=== PATIENT | male | born 1955 ===

== ENCOUNTER 2017-05-18 15:39 | Inpatient (IN) | payer MEDICARE, OTHER ==
[2017-05-18] MEDS ORDERED: Sodium Chloride 0.9% 1,000 ML IV STA (15:52)
--- NOTE | 2017-05-18 15:58 | ED PDOC ---
HPI: Chest Pain Time Seen by Provider: 05/18/17 15:43 Chief Complaint (Nursing): Chest Pain Chief Complaint (Provider): chest pain History Per: Patient History/Exam Limitations: no limitations Onset/Duration Of Symptoms: Days (2), Gradual, Persistent Quality: Sharp Associated Symptoms: Dyspnea. denies: Nausea, Diaphoresis, Syncope Exacerbating Factors: Deep Breathing Additional Complaint(s): Cough since Sunday and taking OTC cough medication, unsure name. Cough seems to be improving but developed shortness of breath and RIGHT sided chest pain. No fever. No swelling. PMD: Dr Patrick Bills Past Medical History Reviewed: Historical Data, Nursing Documentation, Vital Signs Vital Signs: Last Vital Signs Temp 97.5 F L 05/19/17 15:37 Pulse 87 05/19/17 15:37 Resp 20 05/19/17 15:37 BP 110/73 05/19/17 15:37 Pulse Ox 100 05/19/17 15:37 - Medical History PMH: Arthritis, Asthma, Back Problems, Diabetes, HTN, Hypercholesterolemia - Surgical History Surgical History: Appendectomy Other surgeries: Neck surgery, RIGHT hand surgery, Knee surgery - Family History Family History: States: Unknown Family Hx - Social History Current smoker - smoking cessation education provided: Yes Alcohol: Social - Immunization History Hx Tetanus Toxoid Vaccination: No Hx Influenza Vaccination: Yes Hx Pneumococcal Vaccination: No - Home Medications Home Medications: Ambulatory Orders Medication Instructions Recorded GlipiZIDE [Glucotrol] 5 mg PO DAILY 09/21/15 Amitriptyline [Elavil] 25 mg PO HS 05/18/17 Diclofenac Sodium [Voltaren] 1 appl TOP HS 05/18/17 Enalapril Maleate [Vasotec] 20 mg PO DAILY 05/18/17 Folic Acid [Folic Acid] 1 mg PO DAILY 05/18/17 Ibuprofen [Motrin Tab] 600 mg PO Q6H PRN 05/18/17 Multivitamin [Multi-Vitamin Daily] 1 tab PO DAILY 05/18/17 Rosuvastatin Calcium [Crestor] 10 mg PO DAILY 05/18/17 - Allergies Allergies/Adverse Reactions: Allergies Allergy/AdvReac Type Severity Reaction Status Date / Time No Known Allergies Allergy Verified 11/20/16 14:19 LUCAS Risk Score for UA/NSTEMI - LUCAS Risk Score Age > 64: NO 3 or more CAD Risk Factors: YES LUCAS Score: 1 Risk %: 5% Review of Systems ROS Statement: Except As Marked, All Systems Reviewed And Found Negative (and as per HPI) Constitutional: Negative for: Fever, Chills Cardiovascular: Positive for: Chest Pain, Light Headedness. Negative for: Edema Respiratory: Positive for: Cough, Shortness of Breath, SOB with Exertion, Pleuritic Pain, Sputum. Negative for: Hemoptysis, Wheezing Physical Exam - Reviewed Nursing Documentation Reviewed: Yes Vital Signs Reviewed: Yes - Physical Exam Appears: Positive for: Non-toxic, No Acute Distress Head Exam: Positive for: ATRAUMATIC, NORMOCEPHALIC Skin: Positive for: Warm, Dry Eye Exam: Positive for: EOMI, PERRL ENT: Negative for: Pharyngeal Erythema, Tonsillar Exudate Neck: Positive for: Painless ROM, Supple Cardiovascular/Chest: Positive for: Tachycardia, Other (tenderness mild RIGHT anterior chest wall). Negative for: Edema, Murmur Respiratory: Positive for: Normal Breath Sounds. Negative for: Rales, Stridor, Wheezing, Respiratory Distress Gastrointestinal/Abdominal: Positive for: Soft. Negative for: Tenderness, Guarding Back: Positive for: Normal Inspection. Negative for: L CVA Tenderness, R CVA Tenderness Extremity: Positive for: Other (RIGHT hand/wrist: post trauma deformity chronic) . Negative for: Pedal Edema Neurologic/Psych: Positive for: Alert. Negative for: Motor/Sensory Deficits - Laboratory Results Result Diagrams: 05/18/17 16:02 05/19/17 05:30 Interpretation Of Abn Labs: New onset renal insufficiency. Elevated WBC and anemia. Pt has elevated ddimer but unable to have CT with contrast due to renal insufficiency. - ECG ECG: Positive for: Interpreted By Me ECG Rhythm: Positive for: Normal QRS, Normal ST Segment, Sinus Tachycardia O2 Sat by Pulse Oximetry: 98 Pulse Ox Interpretation: Normal - CT Scan/US chest Other Rad Studies (CT/US): Read By Radiologist - Progress ED Course And Treament: Time: 16:05 --CXR FINDINGS: LUNGS: There is a elliptical shaped cavitary lesion in the right middle lobe which measures approximately 4.9 cm trans x 2.15 cm CC x 4 .3 cm AP with a air-fluid level. Findings may represent a abscess however the possibility of cavitary- necrotic tumor not excluded. Clinical correlation recommended. Followup CT scan of the chest recommended. PLEURA: No significant pleural effusion identified. No pneumothorax apparent. CARDIOVASCULAR: Heart size normal. OSSEOUS STRUCTURES: Re- demonstrated is posterior fixation hardware lower cervical spine. . Apparent bilateral laminectomy defects lower cervical region. Clinic correlation recommended. VISUALIZED UPPER ABDOMEN: Normal. OTHER FINDINGS: None. IMPRESSION: Cavitary lesion with air-fluid level right middle lobe. This may represent abscess however cavitary - necrotic tumor not excluded These findings discussed with Dr. Pride at approximately 5:25 p.m. with written down and read back verification. Time: 1950 --CT Chest FINDINGS: Lungs and pleural spaces: Trachea and main bronchi are patent. There is a cavitary mass in the right middle lobe which measures approximately 5 x 4.6 x 4.5 cm in maximal dimension. Inner wall is thick and somewhat irregular. There is a peripheral/adjacent component which is more solid with only a small amount of cavitation. This measures approximately 2.5 x 3 x 2.1 cm. Right middle lobe bronchi extend to the mass. There is middle lobe peribronchial thickening adjacent to the mass. There is airspace disease in the middle lobe adjacent to the mass. Mass abuts the minor fissure and causes bulging. No focal abnormalities are seen in the right upper or lower lobes. There are no focal lesions in the left lung. There are no effusions. Heart and vasculature: Heart size is normal. There are coronary artery calcifications.Aorta and main pulmonary artery are normal in caliber.There are vascular calcifications. Mediastinum: There is mediastinal adenopathy. There are partially calcified mediastinal nodes. There are partially calcified subcarinal nodes and left hilar nodes.Roxana are not optimally evaluated without contrast material.Esophagus is unremarkable. Thyroid: Thyroid is only partially imaged. Bones/joints: There are degenerative changes in the osseus structures. Soft tissues: unremarkable Upper abdomen: Spleen is incompletely imaged but appears enlarged. IMPRESSION: --Cavitary mass in the right middle lobe with adjacent interstitial and air space disease, abscess versus neoplasm; calcified and noncalcified mediastinal and hilar adenopathy; possible splenomegaly --Biopsy advised --Additional findings as described above. Antibiotics started [facility] in isolation and telemetry [facility] pt findings and plan of care. - Critical Care Total Time (In Min): 30 Documented Critical Care: Time excludes all time spent performint seperately billable procedures Disposition - Clinical Impression Clinical Impression: Cavitary lesion of lung, Acute renal insufficiency Counseled Patient/Family Regarding: Studies Performed, Diagnosis - Disposition Disposition Time: 17:00 Condition: GUARDED - Pt Status Changed To: Hospital Disposition Of: Inpatient - Admit Certification Admit to Inpatient:: After my assessment, the patient will require hospitalization for at least two midnights. This is because of the severity of symptoms shown, intensity of services needed, and/or the medical risk in this patient being treated as an outpatient. - POA Present On Arrival: Poor Glycemic Control
[2017-05-18] MEDS ORDERED: Lidocaine 5% Patch TD STA (16:21)
[2017-05-18] MEDS ORDERED: Lidocaine 5% Patch TD ONE (16:31)
[2017-05-18 16:38] LABS: BASO % 0.2 % (0.0-2.0); EOS % 0.1 % (0.0-4.0); HEMATOCRIT 32.3 % (35.0-51.0); LYMPH # 0.4 K/uL (1.0-4.3); LYMPH % 3.2 % (20.0-40.0); MEAN CORPUSCULAR HEMOGLOBIN 31.9 pg (27.0-31.0); MEAN CORPUSCULAR HGB CONC 32.9 g/dL (33.0-37.0); MEAN PLATELET VOLUME 8.7 fl (7.2-11.7); MONO % 8.5 % (0.0-10.0); PLATELET COUNT 221 K/uL (130-400); RED CELL DISTRIBUTION WIDTH 13.1 % (11.5-14.5); WHITE BLOOD COUNT 11.3 K/uL (4.8-10.8)
[2017-05-18 16:53] LABS: ALB/GLOB RATIO 1.1 (1.0-2.1); ALKALINE PHOSPHATASE 154 U/L (38-126); ALT/SGPT 30 U/L (21-72); AST/SGOT 36 U/L (17-59); BILIRUBIN,TOTAL 1.4 mg/dl (0.2-1.3); BLOOD UREA NITROGEN 58 mg/dl (9-20); CALCIUM 9.6 mg/dL (8.4-10.2); CARBON DIOXIDE 20 mmol/L (22-30); CHLORIDE 98 mmol/L (98-107); GFR AFRICAN-AMERICAN 29; GLUCOSE,RANDOM 287 mg/dL (75-110); SODIUM 135 mmol/l (132-148); TOTAL PROTEIN 8.4 G/DL (6.3-8.2)
[2017-05-18 17:03] LABS: VENOUS BLOOD GAS BASE EXCESS -6.6 mmol/L (0.0-2.0); VENOUS BLOOD GAS PCO2 62 mmHg (40-60); VENOUS BLOOD PH 7.15 (7.32-7.43)
[2017-05-18 17:12] LABS: ABG ALLEN TEST YES; ARTERIAL BLOOD GAS PH 7.41 (7.35-7.45); ARTERIAL BLOOD GAS PO2 92 mm/Hg (80-100)
[2017-05-18] MEDS ORDERED: levoFLOXacin 750 mg in D5W 150 ML BAG IVPB STA (17:13)
[2017-05-18] MEDS ORDERED: levoFLOXacin 750 mg in D5W 750 MG/150 ML BAG IVPB STA (17:22)
--- NOTE | 2017-05-18 17:24 | RAD ---
HISTORY: chest pain COMPARISON: Comparison made with prior study 01/05/2014 TECHNIQUE: Chest PA and lateral FINDINGS: LUNGS: There is a elliptical shaped cavitary lesion in the right middle lobe which measures approximately 4.9 cm trans x 2.15 cm CC x 4 .3 cm AP with a air-fluid level. Findings may represent a abscess however the possibility of cavitary- necrotic tumor not excluded. Clinical correlation recommended. Followup CT scan of the chest recommended. PLEURA: No significant pleural effusion identified. No pneumothorax apparent. CARDIOVASCULAR: Heart size normal. OSSEOUS STRUCTURES: Re- demonstrated is posterior fixation hardware lower cervical spine. . Apparent bilateral laminectomy defects lower cervical region. Clinic correlation recommended. VISUALIZED UPPER ABDOMEN: Normal. OTHER FINDINGS: None. IMPRESSION: Cavitary lesion with air-fluid level right middle lobe. This may represent abscess however cavitary - necrotic tumor not excluded These findings discussed with Dr. Pirde at approximately 5:25 p.m. with written down and read back verification.
[2017-05-18 17:48] LABS: EOSINOPHIL 1 % (0-7); NEUTROPHIL 77 % (42-75); TOTAL CELLS COUNTED 100
[2017-05-18] MEDS ORDERED: levoFLOXacin 750 mg in D5W 750 MG/150 ML BAG IVPB ONE (18:08)
[2017-05-18 18:46] LABS: URINE BACTERIA RARE (<OCC); URINE BILIRUBIN NEGATIVE (NEGATIVE); URINE BLOOD MODERATE (NEGATIVE); URINE COLOR YELLOW (YELLOW); URINE GLUCOSE (UA) >=500 mg/dL (Normal); URINE KETONE NEGATIVE (NEGATIVE); URINE LEUKOCYTE ESTERASE NEG Leu/uL (Negative); URINE PROTEIN 100 mg/dL (NEGATIVE); WBC URINE 2 /hpf (0-5)
[2017-05-18 19:09] LABS: RBC URINE 18 /hpf (0-3)
--- NOTE | 2017-05-18 19:50 | CT ---
EXAM: CT Chest Without Intravenous Contrast EXAM DATE/TIME: 05/18/2017 5:00 PM CLINICAL HISTORY: 61 years old, male; Pain; Chest pain; Type not specified; Additional info: Possible right pulmonary abscess. Sent patient's HX. there is a cavitary mass in the right middle lobe. The Form. Low gfr. TECHNIQUE: Axial computed tomography images of the chest without intravenous contrast. All CT scans at this facility use one or more dose reduction techniques, viz.: automated exposure control; ma/kV adjustment per patient size (including targeted exams where dose is matched to indication; i.e. head); or iterative reconstruction technique. Coronal and sagittal reformatted images were created and reviewed. COMPARISON: CR - CHEST TWO VIEWS (PA/LAT) 05/18/2017 3:54:38 PM FINDINGS: Lungs and pleural spaces: Trachea and main bronchi are patent. There is a cavitary mass in the right middle lobe which measures approximately 5 x 4.6 x 4.5 cm in maximal dimension. Inner wall is thick and somewhat irregular. There is a peripheral/adjacent component which is more solid with only a small amount of cavitation. This measures approximately 2.5 x 3 x 2.1 cm. Right middle lobe bronchi extend to the mass. There is middle lobe peribronchial thickening adjacent to the mass. There is airspace disease in the middle lobe adjacent to the mass. Mass abuts the minor fissure and causes bulging. No focal abnormalities are seen in the right upper or lower lobes. There are no focal lesions in the left lung. There are no effusions. Heart and vasculature: Heart size is normal. There are coronary artery calcifications.Aorta and main pulmonary artery are normal in caliber.There are vascular calcifications. Mediastinum: There is mediastinal adenopathy. There are partially calcified mediastinal nodes. There are partially calcified subcarinal nodes and left hilar nodes.Roxana are not optimally evaluated without contrast material.Esophagus is unremarkable. Thyroid: Thyroid is only partially imaged. Bones/joints: There are degenerative changes in the osseus structures. Soft tissues: unremarkable Upper abdomen: Spleen is incompletely imaged but appears enlarged. IMPRESSION: Cavitary mass in the right middle lobe with adjacent interstitial and air space disease, abscess versus neoplasm; calcified and noncalcified mediastinal and hilar adenopathy; possible splenomegaly Biopsy advised Additional findings as described above.
[2017-05-19] MEDS ORDERED: Sodium Chloride 0.45% 1,000 ML IV SCH (00:45)
[2017-05-19] MEDS ORDERED: Pneumococcal 23-Valent Vaccine IM ONE (06:00)
[2017-05-19] MEDS ORDERED: Influenza Vaccine 18yr & older 0.5 ML/45 MCG SYR IM ONE (06:00)
[2017-05-19 07:46] LABS: CALCIUM 9.1 mg/dL (8.4-10.2); POTASSIUM 4.3 MMOL/L (3.6-5.0)
[2017-05-19] MEDS: Insulin Lispro (humaLOG) 100 Units/ml Inj SC SCH ×2 (08:52→17:50)
[2017-05-19] MEDS: Multivitamin With Minerals Tab PO SCH (08:52)
[2017-05-19] MEDS ORDERED: Patient's Own Med (Multivitamin [Multi-Vitamin Daily] 1 TAB) PO SCH (09:00)
--- NOTE | 2017-05-19 10:48 | CP.PCM.CON ---
History of Present Illness - History of Present Illness History of Present Illness: Infectious Disease Consultation Note- Asked to see this patient for cough, fever and cavitary lung lesion. HPI- Patient is a 61 year old male with PMH of HTN, DM II, hyperlipidemia who was admitted with c/o cough productive of thick yellow/green phlegm and sob and right sided pleuritic chest pain, PAtient states he was having cold/flu like symptoms few days ago and he took some OTC cough and cold medications and as per pt. his symptoms worsened after that and hence he came to ED to be further evaluated and treated. IN ed pt. was found to have low grade fever and chest CT was read as cavitary lung lesion fluid filled and hence he is admitted and being treated for pneumonia and being ruled out for Mycobacteria as well. Pt. denies any h/o exposure to TB. He denies any hemoptysis, denies any weight loss and denies any night sweats. denies any recent travel, denies any sick contacts and denies any animal exposure and denies previous pneumonia. Review of Systems - Review of Systems Review of Systems: ROS- Low grade fever, denies any GALLEGOS, denies any neck pain, + cough with yellow/green phlegm, denies any hemptysis, denies any night sweats, denies any weight loss, + sob and right sided pleuritic chest pain after coughs, denies any n/v, denies any abd. pain, denies any diarrhea, denies any dysurea. denies any sick contacts denies any travel Past Patient History - Past Medical History & Family History Past Medical History?: Yes - Past Social History Smoking Status: Light Smoker < 10 Cigarettes Daily - CARDIAC Hx Cardiac Disorders: Yes Hx Hypercholesterolemia: Yes Hx Hypertension: Yes - PULMONARY Hx Respiratory Disorders: Yes Hx Asthma: Yes - NEUROLOGICAL Hx Neurological Disorder: No - HEENT Hx HEENT Problems: Yes Other/Comment: Use Eyeglasses - RENAL Hx Chronic Kidney Disease: No - ENDOCRINE/METABOLIC Hx Endocrine Disorders: Yes Hx Diabetes Mellitus Type 2: Yes - HEMATOLOGICAL/ONCOLOGICAL Hx Blood Disorders: No - INTEGUMENTARY Hx Dermatological Problems: No - MUSCULOSKELETAL/RHEUMATOLOGICAL Hx Musculoskeletal Disorders: Yes Hx Arthritis: Yes Hx Falls: No - GASTROINTESTINAL Hx Gastrointestinal Disorders: No - GENITOURINARY/GYNECOLOGICAL Hx Genitourinary Disorders: No - PSYCHIATRIC Hx Psychophysiologic Disorder: No Hx Substance Use: No - SURGICAL HISTORY Hx Surgeries: Yes Hx Appendectomy: Yes Other/Comment: Surgery in the mouth due to ingrown teeth. Surgery in neck for pinch nerve - ANESTHESIA Hx Anesthesia: Yes Hx Anesthesia Reactions: No Hx Malignant Hyperthermia: No Has any member of the family had a problem w/ anesthesia?: No Meds Allergies/Adverse Reactions: Allergies Allergy/AdvReac Type Severity Reaction Status Date / Time No Known Allergies Allergy Verified 11/20/16 14:19 - Medications Medications: Current Medications Acetaminophen (Tylenol 325mg Tab) 650 mg PO Q6 PRN PRN Reason: Pain, moderate (4-7) Last Admin: 05/19/17 08:53 Dose: 650 mg Amitriptyline HCl (Elavil) 25 mg PO HS [facility] Atorvastatin Calcium (Lipitor) 20 mg PO DAILY [facility] Last Admin: 05/19/17 08:53 Dose: 20 mg Folic Acid (Folic Acid) 1 mg PO DAILY [facility] Last Admin: 05/19/17 08:53 Dose: 1 mg Sodium Chloride (Sodium Chloride 0.45%) 1,000 mls @ 100 mls/hr IV .Q10H [facility] Stop: 05/20/17 00:38 Last Admin: 05/19/17 01:51 Dose: 100 mls/hr Insulin Human Lispro (Humalog) 0 units SC BRKDIN [facility] PRN Reason: Protocol Last Admin: 05/19/17 08:52 Dose: 3 units Multivitamins/Minerals (Therapeutic-M Tab) 1 tab PO DAILY [facility] Last Admin: 05/19/17 08:52 Dose: 1 tab Physical Exam - Constitutional Appears: No Acute Distress - Head Exam Head Exam: ATRAUMATIC - Eye Exam Eye Exam: EOMI, PERRL - ENT Exam ENT Exam: Normal Oropharynx - Neck Exam Neck exam: Positive for: Full Rom Additional comments: supple - Respiratory Exam Respiratory Exam: NORMAL BREATHING PATTERN Additional comments: no wheezing slightly decreased breath sounds at bases but also poor inspiratory effort - Cardiovascular Exam Cardiovascular Exam: RRR, +S1, +S2 - GI/Abdominal Exam GI & Abdominal Exam: Normal Bowel Sounds, Soft Additional comments: NT, ND - Extremities Exam Extremities exam: Positive for: normal inspection - Neurological Exam Neurological exam: Alert, Oriented x3 Results - Vital Signs Recent Vital Signs: Last Vital Signs Temp 100.3 F H 05/19/17 08:53 Pulse 103 H 05/19/17 08:23 Resp 18 05/19/17 08:23 BP 100/61 05/19/17 08:23 Pulse Ox 95 05/19/17 08:23 - Labs Result Diagrams: 05/18/17 16:02 05/19/17 05:30 Labs: Laboratory Results - last 24 hr 05/18/17 05/18/17 05/18/17 16:02 16:02 16:02 WBC 11.3 H RBC 3.32 L Hgb 10.6 L Hct 32.3 L MCV 97.0 H MCH 31.9 H MCHC 32.9 L RDW 13.1 Plt Count 221 MPV 8.7 Neut % (Auto) 88.0 H Lymph % (Auto) 3.2 L Falls % (Auto) 8.5 Eos % (Auto) 0.1 Baso % (Auto) 0.2 Neut # 10.0 H Lymph # 0.4 L Falls # 1.0 H Eos # 0.0 Baso # 0.0 Neutrophils % (Manual) 77 H Band Neutrophils % 2 Lymphocytes % (Manual) 10 L Monocytes % (Manual) 10 Eosinophils % (Manual) 1 Platelet Estimate Normal Anisocytosis (manual) Moderate Macrocytosis (manual) Slight D-Dimer, Quantitative 404 H pCO2 pO2 28 L HCO3 ABG pH ABG Total CO2 ABG O2 Saturation ABG Base Excess Lew Test ABG Potassium VBG pH 7.15 L* VBG pCO2 62 H VBG HCO3 19.3 VBG Total CO2 23.5 VBG O2 Sat (Calc) 56.7 VBG Base Excess -6.6 L VBG Potassium > 20.0 H* A-a O2 Difference 44.0 Sodium 125.0 L Chloride 94.0 L Glucose 306 H Lactate 1.4 FiO2 21.0 Crit Value Called To Linette phan Crit Value Called By 15 Crit Value Read Back Y Blood Gas Notified Time 1703 Potassium Carbon Dioxide Anion Gap BUN Creatinine Est GFR ( Amer) Est GFR (Non-Af Amer) POC Glucose (mg/dL) Random Glucose Calcium Total Bilirubin AST ALT Alkaline Phosphatase Troponin I Total Protein Albumin Globulin Albumin/Globulin Ratio Arterial Blood Potassium Venous Blood Potassium > 20.0 H* Urine Color Urine Clarity Urine pH Ur Specific Mason Urine Protein Urine Glucose (UA) Urine Ketones Urine Blood Urine Nitrate Urine Bilirubin Urine Urobilinogen Ur Leukocyte Esterase Urine RBC (Auto) Urine Microscopic WBC Ur Squamous Epith Cells Urine Bacteria Urine Yeast (Budding) Ur Random Creatinine 05/18/17 05/18/17 05/18/17 16:12 16:30 17:05 WBC RBC Hgb Hct MCV MCH MCHC RDW Plt Count MPV Neut % (Auto) Lymph % (Auto) Falls % (Auto) Eos % (Auto) Baso % (Auto) Neut # Lymph # Falls # Eos # Baso # Neutrophils % (Manual) Band Neutrophils % Lymphocytes % (Manual) Monocytes % (Manual) Eosinophils % (Manual) Platelet Estimate Anisocytosis (manual) Macrocytosis (manual) D-Dimer, Quantitative pCO2 32 L pO2 92 HCO3 22.0 ABG pH 7.41 ABG Total CO2 21.3 L ABG O2 Saturation 99.4 H ABG Base Excess -3.7 L Lew Test Yes ABG Potassium 3.6 VBG pH VBG pCO2 VBG HCO3 VBG Total CO2 VBG O2 Sat (Calc) VBG Base Excess VBG Potassium A-a O2 Difference 18.0 Sodium 135 132.0 Chloride 98 101.0 Glucose 315 H Lactate 1.2 FiO2 21.0 Crit Value Called To Crit Value Called By Crit Value Read Back Blood Gas Notified Time Potassium 4.0 Carbon Dioxide 20 L Anion Gap 21 H BUN 58 H Creatinine 2.7 H Est GFR ( Amer) 29 Est GFR (Non-Af Amer) 24 POC Glucose (mg/dL) 307 H Random Glucose 287 H Calcium 9.6 Total Bilirubin 1.4 H AST 36 ALT 30 Alkaline Phosphatase 154 H Troponin I < 0.0120 Total Protein 8.4 H Albumin 4.4 Globulin 3.9 Albumin/Globulin Ratio 1.1 Arterial Blood Potassium 3.6 Venous Blood Potassium Urine Color Urine Clarity Urine pH Ur Specific Mason Urine Protein Urine Glucose (UA) Urine Ketones Urine Blood Urine Nitrate Urine Bilirubin Urine Urobilinogen Ur Leukocyte Esterase Urine RBC (Auto) Urine Microscopic WBC Ur Squamous Epith Cells Urine Bacteria Urine Yeast (Budding) Ur Random Creatinine 05/18/17 05/19/17 05/19/17 18:19 05:30 05:57 WBC RBC Hgb Hct MCV MCH MCHC RDW Plt Count MPV Neut % (Auto) Lymph % (Auto) Falls % (Auto) Eos % (Auto) Baso % (Auto) Neut # Lymph # Falls # Eos # Baso # Neutrophils % (Manual) Band Neutrophils % Lymphocytes % (Manual) Monocytes % (Manual) Eosinophils % (Manual) Platelet Estimate Anisocytosis (manual) Macrocytosis (manual) D-Dimer, Quantitative pCO2 pO2 HCO3 ABG pH ABG Total CO2 ABG O2 Saturation ABG Base Excess Lew Test ABG Potassium VBG pH VBG pCO2 VBG HCO3 VBG Total CO2 VBG O2 Sat (Calc) VBG Base Excess VBG Potassium A-a O2 Difference Sodium 140 Chloride 103 Glucose Lactate FiO2 Crit Value Called To Crit Value Called By Crit Value Read Back Blood Gas Notified Time Potassium 4.3 Carbon Dioxide 22 Anion Gap 19 BUN 47 H Creatinine 2.3 H Est GFR ( Amer) 35 Est GFR (Non-Af Amer) 29 POC Glucose (mg/dL) 246 H Random Glucose 254 H Calcium 9.1 Total Bilirubin AST ALT Alkaline Phosphatase Troponin I Total Protein Albumin Globulin Albumin/Globulin Ratio Arterial Blood Potassium Venous Blood Potassium Urine Color Yellow Urine Clarity Cloudy Urine pH 6.0 Ur Specific Mason 1.013 Urine Protein 100 Urine Glucose (UA) >=500 Urine Ketones Negative Urine Blood Moderate Urine Nitrate Negative Urine Bilirubin Negative Urine Urobilinogen 2.0 Ur Leukocyte Esterase Neg Urine RBC (Auto) 18 H Urine Microscopic WBC 2 Ur Squamous Epith Cells 1 Urine Bacteria Rare Urine Yeast (Budding) Rare H Ur Random Creatinine 05/19/17 08:45 WBC RBC Hgb Hct MCV MCH MCHC RDW Plt Count MPV Neut % (Auto) Lymph % (Auto) Falls % (Auto) Eos % (Auto) Baso % (Auto) Neut # Lymph # Falls # Eos # Baso # Neutrophils % (Manual) Band Neutrophils % Lymphocytes % (Manual) Monocytes % (Manual) Eosinophils % (Manual) Platelet Estimate Anisocytosis (manual) Macrocytosis (manual) D-Dimer, Quantitative pCO2 pO2 HCO3 ABG pH ABG Total CO2 ABG O2 Saturation ABG Base Excess Lew Test ABG Potassium VBG pH VBG pCO2 VBG HCO3 VBG Total CO2 VBG O2 Sat (Calc) VBG Base Excess VBG Potassium A-a O2 Difference Sodium Chloride Glucose Lactate FiO2 Crit Value Called To Crit Value Called By Crit Value Read Back Blood Gas Notified Time Potassium Carbon Dioxide Anion Gap BUN Creatinine Est GFR ( Amer) Est GFR (Non-Af Amer) POC Glucose (mg/dL) Random Glucose Calcium Total Bilirubin AST ALT Alkaline Phosphatase Troponin I Total Protein Albumin Globulin Albumin/Globulin Ratio Arterial Blood Potassium Venous Blood Potassium Urine Color Urine Clarity Urine pH Ur Specific Mason Urine Protein Urine Glucose (UA) Urine Ketones Urine Blood Urine Nitrate Urine Bilirubin Urine Urobilinogen Ur Leukocyte Esterase Urine RBC (Auto) Urine Microscopic WBC Ur Squamous Epith Cells Urine Bacteria Urine Yeast (Budding) Ur Random Creatinine 77.4 Laboratory Results - last 72 hr 05/18/17 05/18/17 05/18/17 16:02 16:02 16:02 WBC 11.3 H RBC 3.32 L Hgb 10.6 L Hct 32.3 L MCV 97.0 H MCH 31.9 H MCHC 32.9 L RDW 13.1 Plt Count 221 MPV 8.7 Neut % (Auto) 88.0 H Lymph % (Auto) 3.2 L Falls % (Auto) 8.5 Eos % (Auto) 0.1 Baso % (Auto) 0.2 Neut # 10.0 H Lymph # 0.4 L Falls # 1.0 H Eos # 0.0 Baso # 0.0 Neutrophils % (Manual) 77 H Band Neutrophils % 2 Lymphocytes % (Manual) 10 L Monocytes % (Manual) 10 Eosinophils % (Manual) 1 Platelet Estimate Normal Anisocytosis (manual) Moderate Macrocytosis (manual) Slight D-Dimer, Quantitative 404 H pCO2 pO2 28 L HCO3 ABG pH ABG Total CO2 ABG O2 Saturation ABG Base Excess Lew Test ABG Potassium VBG pH 7.15 L* VBG pCO2 62 H VBG HCO3 19.3 VBG Total CO2 23.5 VBG O2 Sat (Calc) 56.7 VBG Base Excess -6.6 L VBG Potassium > 20.0 H* A-a O2 Difference 44.0 Sodium 125.0 L Chloride 94.0 L Glucose 306 H Lactate 1.4 FiO2 21.0 Crit Value Called To Linette phan Crit Value Called By 15 Crit Value Read Back Y Blood Gas Notified Time 1703 Potassium Carbon Dioxide Anion Gap BUN Creatinine Est GFR ( Amer) Est GFR (Non-Af Amer) POC Glucose (mg/dL) Random Glucose Calcium Total Bilirubin AST ALT Alkaline Phosphatase Troponin I Total Protein Albumin Globulin Albumin/Globulin Ratio Arterial Blood Potassium Venous Blood Potassium > 20.0 H* Urine Color Urine Clarity Urine pH Ur Specific Mason Urine Protein Urine Glucose (UA) Urine Ketones Urine Blood Urine Nitrate Urine Bilirubin Urine Urobilinogen Ur Leukocyte Esterase Urine RBC (Auto) Urine Microscopic WBC Ur Squamous Epith Cells Urine Bacteria Urine Yeast (Budding) Ur Random Creatinine IgA 05/18/17 05/18/17 05/18/17 16:12 16:30 17:05 WBC RBC Hgb Hct MCV MCH MCHC RDW Plt Count MPV Neut % (Auto) Lymph % (Auto) Falls % (Auto) Eos % (Auto) Baso % (Auto) Neut # Lymph # Falls # Eos # Baso # Neutrophils % (Manual) Band Neutrophils % Lymphocytes % (Manual) Monocytes % (Manual) Eosinophils % (Manual) Platelet Estimate Anisocytosis (manual) Macrocytosis (manual) D-Dimer, Quantitative pCO2 32 L pO2 92 HCO3 22.0 ABG pH 7.41 ABG Total CO2 21.3 L ABG O2 Saturation 99.4 H ABG Base Excess -3.7 L Lew Test Yes ABG Potassium 3.6 VBG pH VBG pCO2 VBG HCO3 VBG Total CO2 VBG O2 Sat (Calc) VBG Base Excess VBG Potassium A-a O2 Difference 18.0 Sodium 135 132.0 Chloride 98 101.0 Glucose 315 H Lactate 1.2 FiO2 21.0 Crit Value Called To Crit Value Called By Crit Value Read Back Blood Gas Notified Time Potassium 4.0 Carbon Dioxide 20 L Anion Gap 21 H BUN 58 H Creatinine 2.7 H Est GFR ( Amer) 29 Est GFR (Non-Af Amer) 24 POC Glucose (mg/dL) 307 H Random Glucose 287 H Calcium 9.6 Total Bilirubin 1.4 H AST 36 ALT 30 Alkaline Phosphatase 154 H Troponin I < 0.0120 Total Protein 8.4 H Albumin 4.4 Globulin 3.9 Albumin/Globulin Ratio 1.1 Arterial Blood Potassium 3.6 Venous Blood Potassium Urine Color Urine Clarity Urine pH Ur Specific Mason Urine Protein Urine Glucose (UA) Urine Ketones Urine Blood Urine Nitrate Urine Bilirubin Urine Urobilinogen Ur Leukocyte Esterase Urine RBC (Auto) Urine Microscopic WBC Ur Squamous Epith Cells Urine Bacteria Urine Yeast (Budding) Ur Random Creatinine IgA 05/18/17 05/18/17 05/19/17 18:19 20:58 05:30 WBC RBC Hgb Hct MCV MCH MCHC RDW Plt Count MPV Neut % (Auto) Lymph % (Auto) Falls % (Auto) Eos % (Auto) Baso % (Auto) Neut # Lymph # Falls # Eos # Baso # Neutrophils % (Manual) Band Neutrophils % Lymphocytes % (Manual) Monocytes % (Manual) Eosinophils % (Manual) Platelet Estimate Anisocytosis (manual) Macrocytosis (manual) D-Dimer, Quantitative pCO2 pO2 HCO3 ABG pH ABG Total CO2 ABG O2 Saturation ABG Base Excess Lew Test ABG Potassium VBG pH VBG pCO2 VBG HCO3 VBG Total CO2 VBG O2 Sat (Calc) VBG Base Excess VBG Potassium A-a O2 Difference Sodium 140 Chloride 103 Glucose Lactate FiO2 Crit Value Called To Crit Value Called By Crit Value Read Back Blood Gas Notified Time Potassium 4.3 Carbon Dioxide 22 Anion Gap 19 BUN 47 H Creatinine 2.3 H Est GFR ( Amer) 35 Est GFR (Non-Af Amer) 29 POC Glucose (mg/dL) Random Glucose 254 H Calcium 9.1 Total Bilirubin AST ALT Alkaline Phosphatase Troponin I Total Protein Albumin Globulin Albumin/Globulin Ratio Arterial Blood Potassium Venous Blood Potassium Urine Color Yellow Urine Clarity Cloudy Urine pH 6.0 Ur Specific Mason 1.013 Urine Protein 100 Urine Glucose (UA) >=500 Urine Ketones Negative Urine Blood Moderate Urine Nitrate Negative Urine Bilirubin Negative Urine Urobilinogen 2.0 Ur Leukocyte Esterase Neg Urine RBC (Auto) 18 H Urine Microscopic WBC 2 Ur Squamous Epith Cells 1 Urine Bacteria Rare Urine Yeast (Budding) Rare H Ur Random Creatinine IgA 295.2 05/19/17 05/19/17 05:57 08:45 WBC RBC Hgb Hct MCV MCH MCHC RDW Plt Count MPV Neut % (Auto) Lymph % (Auto) Falls % (Auto) Eos % (Auto) Baso % (Auto) Neut # Lymph # Falls # Eos # Baso # Neutrophils % (Manual) Band Neutrophils % Lymphocytes % (Manual) Monocytes % (Manual) Eosinophils % (Manual) Platelet Estimate Anisocytosis (manual) Macrocytosis (manual) D-Dimer, Quantitative pCO2 pO2 HCO3 ABG pH ABG Total CO2 ABG O2 Saturation ABG Base Excess Lew Test ABG Potassium VBG pH VBG pCO2 VBG HCO3 VBG Total CO2 VBG O2 Sat (Calc) VBG Base Excess VBG Potassium A-a O2 Difference Sodium Chloride Glucose Lactate FiO2 Crit Value Called To Crit Value Called By Crit Value Read Back Blood Gas Notified Time Potassium Carbon Dioxide Anion Gap BUN Creatinine Est GFR ( Amer) Est GFR (Non-Af Amer) POC Glucose (mg/dL) 246 H Random Glucose Calcium Total Bilirubin AST ALT Alkaline Phosphatase Troponin I Total Protein Albumin Globulin Albumin/Globulin Ratio Arterial Blood Potassium Venous Blood Potassium Urine Color Urine Clarity Urine pH Ur Specific Mason Urine Protein Urine Glucose (UA) Urine Ketones Urine Blood Urine Nitrate Urine Bilirubin Urine Urobilinogen Ur Leukocyte Esterase Urine RBC (Auto) Urine Microscopic WBC Ur Squamous Epith Cells Urine Bacteria Urine Yeast (Budding) Ur Random Creatinine 77.4 IgA Accession No. : [id number] Patient Name / ID : SALAZAR Barnard / [id number] Exam Date : 05/18/2017 15:54:38 ( Approved ) Study Comment : Sex / Age : M / 61Y Creator : Tino Wilson Dictator : Stanley Monahan MD Associate Professor Of Pathology : Manager Knowledge : Stanley Monahan MD Approver2 : Report Date : 05/18/2017 16:05:14 My Comment : HISTORY: chest pain COMPARISON: Comparison made with prior study 01/05/2014 TECHNIQUE: Chest PA and lateral FINDINGS: LUNGS: There is a elliptical shaped cavitary lesion in the right middle lobe which measures approximately 4.9 cm trans x 2.15 cm CC x 4 .3 cm AP with a air-fluid level. Findings may represent a abscess however the possibility of cavitary- necrotic tumor not excluded. Clinical correlation recommended. Followup CT scan of the chest recommended. PLEURA: No significant pleural effusion identified. No pneumothorax apparent. CARDIOVASCULAR: Heart size normal. OSSEOUS STRUCTURES: Re- demonstrated is posterior fixation hardware lower cervical spine. . Apparent bilateral laminectomy defects lower cervical region. Clinic correlation recommended. VISUALIZED UPPER ABDOMEN: Normal. OTHER FINDINGS: None. IMPRESSION: Cavitary lesion with air-fluid level right middle lobe. This may represent abscess however cavitary - necrotic tumor not excluded These findings discussed with Dr. Pride at approximately 5:25 p.m. with written down and read back verification. Accession No. : [id number] Patient Name / ID : SALAZAR Barnard / [id number] Exam Date : 05/18/2017 18:28:13 ( Approved ) Study Comment : Sex / Age : M / 61Y Creator : DARILNE ACOSTA Dictator : Associate Professor Of Pathology : Manager Knowledge : DARLINE ACOSTA Approver2 : Report Date : 05/18/2017 19:50:00 My Comment : [facility] Division of Radiology [address] [place] [address] Tel. no. Patient Name: NANDO LINCOLN Pt. Address: [address] [place] [address] Rec #: [id number] [place] [address]: Bigg SIDDIQUI, Mary Carr Pt Order Location: [facility] : 1955 Male Age: 61 Order #: [id number] Reason for exam: possible RIGHT pulmonary abscess CT Scan CHEST W/O CONTRAST Exam Date: 05/18/17 This imaging exam was performed at [facility] ADDENDUM Addendum created by Darline Acosta MD on 05/18/2017 8:05:15 PM EDT Findings were discussed with Mary Bazzi at 8:05 PM EDT on 05/18/2017. Initial report created on 05/18/2017 7:50:49 PM EDT EXAM: CT Chest Without Intravenous Contrast EXAM DATE/TIME: 05/18/2017 5:00 PM CLINICAL HISTORY: 61 years old, male; Pain; Chest pain; Type not specified; Additional info: Possible right pulmonary abscess. Sent patient's HX. there is a cavitary mass in the right middle lobe. The Form. Low gfr. TECHNIQUE: Axial computed tomography images of the chest without intravenous contrast. All CT scans at this facility use one or more dose reduction techniques, viz.: automated exposure control; ma/kV adjustment per patient size (including targeted exams where dose is matched to indication; i.e. head); or iterative reconstruction technique. Coronal and sagittal reformatted images were created and reviewed. COMPARISON: CR - CHEST TWO VIEWS (PA/LAT) 05/18/2017 3:54:38 PM FINDINGS: Lungs and pleural spaces: Trachea and main bronchi are patent. There is a cavitary mass in the right middle lobe which measures approximately 5 x 4.6 x 4.5 cm in maximal dimension. Inner wall is thick and somewhat irregular. There is a peripheral/adjacent component which is more solid with only a small amount of cavitation. This measures approximately 2.5 x 3 x 2.1 cm. Right middle lobe bronchi extend to the mass. There is middle lobe peribronchial thickening adjacent to the mass. There is airspace disease in the middle lobe adjacent to the mass. Mass abuts the minor fissure and causes bulging. No focal abnormalities are seen in the right upper or lower lobes. There are no focal lesions in the left lung. There are no effusions. Heart and vasculature: Heart size is normal. There are coronary artery calcifications.Aorta and main pulmonary artery are normal in caliber.There are vascular calcifications. Mediastinum: There is mediastinal adenopathy. There are partially calcified mediastinal nodes. There are partially calcified subcarinal nodes and left hilar nodes.Roxana are not optimally evaluated without contrast material.Esophagus is unremarkable. Thyroid: Thyroid is only partially imaged. Bones/joints: There are degenerative changes in the osseus structures. Soft tissues: unremarkable Upper abdomen: Spleen is incompletely imaged but appears enlarged. IMPRESSION: Cavitary mass in the right middle lobe with adjacent interstitial and air space disease, abscess versus neoplasm; calcified and noncalcified mediastinal and hilar adenopathy; possible splenomegaly Biopsy advised Additional findings as described above. Addendum Dictated By: Darline Acosta MD Addendum Dictated Date Time:05/18/17 Addendum Signed by:Darline Acosta MD Addendum signed Date Time: 05/18/172004 Addendum Transcribed By: HAROON Addendum Transcribed Date Time: 05/18/17 JODY/MANISH EXAM: CT Chest Without Intravenous Contrast EXAM DATE/TIME: 05/18/2017 5:00 PM CLINICAL HISTORY: 61 years old, male; Pain; Chest pain; Type not specified; Additional info: Possible right pulmonary abscess. Sent patient's HX. there is a cavitary mass in the right middle lobe. The Form. Low gfr. TECHNIQUE: Axial computed tomography images of the chest without intravenous contrast. All CT scans at this facility use one or more dose reduction techniques, viz.: automated exposure control; ma/kV adjustment per patient size (including targeted exams where dose is matched to indication; i.e. head); or iterative reconstruction technique. Coronal and sagittal reformatted images were created and reviewed. COMPARISON: CR - CHEST TWO VIEWS (PA/LAT) 05/18/2017 3:54:38 PM FINDINGS: Lungs and pleural spaces: Trachea and main bronchi are patent. There is a cavitary mass in the right middle lobe which measures approximately 5 x 4.6 x 4.5 cm in maximal dimension. Inner wall is thick and somewhat irregular. There is a peripheral/adjacent component which is more solid with only a small amount of cavitation. This measures approximately 2.5 x 3 x 2.1 cm. Right middle lobe bronchi extend to the mass. There is middle lobe peribronchial thickening adjacent to the mass. There is airspace disease in the middle lobe adjacent to the mass. Mass abuts the minor fissure and causes bulging. No focal abnormalities are seen in the right upper or lower lobes. There are no focal lesions in the left lung. There are no effusions. Heart and vasculature: Heart size is normal. There are coronary artery calcifications.Aorta and main pulmonary artery are normal in caliber.There are vascular calcifications. Mediastinum: There is mediastinal adenopathy. There are partially calcified mediastinal nodes. There are partially calcified subcarinal nodes and left hilar nodes.Roxana are not optimally evaluated without contrast material.Esophagus is unremarkable. Thyroid: Thyroid is only partially imaged. Bones/joints: There are degenerative changes in the osseus structures. Soft tissues: unremarkable Upper abdomen: Spleen is incompletely imaged but appears enlarged. IMPRESSION: Cavitary mass in the right middle lobe with adjacent interstitial and air space disease, abscess versus neoplasm; calcified and noncalcified mediastinal and hilar adenopathy; possible splenomegaly Biopsy advised Additional findings as described above. Dictated By: Darline Acosta MD, MD Dictated Date/Time: 05/18/171949 Signed By: Darline Acosta MD Date Signed: 1949 Transcribed By: HAROON Transcribe Date/Time : 05/18/171949 JODY/MANISH Assessment & Plan (1) Cavitary lesion of lung Status: Acute (2) Cough Status: Acute (3) Fever Status: Acute (4) Diabetes Status: Acute - Assessment and Plan (Free Text) Assessment: A/P- 61 year old male with DM II, HTN, admitted with productive cough, fever and found to have cavitary lung lesion in right middle lobe that's fluid filled as per report ready by radiologist and abscess vs neoplasms. plan- since the lesion is cavitary and pt. is from endemic region ( born in [place] 11) no objection to ruling him out for TB with AFB sputum x 3. also check regular sputum cx. check fungal cx . advise in the meantime to also check quantiferon. cover for anaerobes and gram neg . hence advise to d/c ceftriaxone and start zosyn instead.( renal dose). can continue with clindamycin. advise to also add zithroamx for atypical coverage. check mycoplasma serology. check Urine legonella AG. check for rapid HIV as well. advise pulmonary evaluation as well. check blood cx x 2. Airborne isolation till sputum AFB neg x 3. all above d/w patient and he verbalizes full understanding of all above and agrees with above plan of care. Thank you for allowing me to take part in the care of this patient.
[2017-05-19] MEDS ORDERED: Sodium Chloride 3% for Inhalation 4 ML VIAL.NEB IH PRN (11:01)
[2017-05-19] MEDS ORDERED: Clindamycin 300 MG in Sodium Chloride 0.9% 50 ML IVPB SCH (11:15)
[2017-05-19] MEDS ORDERED: Tuberculin 5 Units/0.1 ml Inj ID ONE (12:00)
[2017-05-19] MEDS: Clindamycin 300 MG in Sodium Chloride 0.9% 100 ML IVPB SCH ×2 (12:22→17:59)
[2017-05-19] MEDS: Sodium Chloride 0.9% 1,000 ML IV SCH ×4 (12:23→21:38)
[2017-05-19] MEDS: Promethazine DM 12.5 mg-30 mg/10 ml Syrup PO PRN ×2 (12:41→18:46)
[2017-05-19] MEDS: Oxycodone/Acetaminophen 5/325 mg Tab PO PRN ×2 (12:44→18:47)
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
--- NOTE | 2017-05-19 13:29 | CARD ---
APPROVED REPORT EKG Measurement Heart [id number] <Conclusion> Sinus tachycardia Otherwise normal ECG
[2017-05-19] MEDS: Azithromycin 500 MG in Sodium Chloride 0.9% 250 ML IVPB SCH (15:39)
[2017-05-19] MEDS ORDERED: Albuterol-Ipratrop 3 mg / 0.5 (3 ml) UD INH PRN ×2 (18:00→18:15)
[2017-05-19] MEDS: Albuterol-Ipratrop 3 mg / 0.5 (3 ml) UD INH SCH (19:33)
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
[2017-05-20] MEDS: Albuterol-Ipratrop 3 mg / 0.5 (3 ml) UD INH SCH ×4 (01:04→19:12)
[2017-05-20] MEDS: Clindamycin 300 MG in Sodium Chloride 0.9% 100 ML IVPB SCH ×2 (01:05→09:13)
--- NOTE | 2017-05-20 04:17 | CON ---
CHIEF COMPLAINT: Cough and not feeling well. HISTORY OF PRESENT ILLNESS: The patient is a 59-[id number]-male with history of osteoarthritis, bronchial asthma, diabetes mellitus, hypertension, hyperlipidemia, and chronic back pain, presented to the hospital complaining of shortness of breath along with cough with phlegm for the last 3-4 days. Denied any blood in the phlegm. Has been feeling sick. Does not feel well. Denies any urinary complaints. Has a painful burning urination. Also had kidney disease in the past. Does report pain in the chest on the coughing. Then, he is also active smoker, has been smoking for many decades now. He denies any obvious weight loss. REVIEW OF SYSTEMS: GENERAL: Overall, the patient dilan not feel well. He denies any weight loss. Denies any fever or chills at home. NEUROLOGIC: He denies any headache, tingling, numbness, dizziness, or weakness. EYES: No watery or itchy eyes. ENT: Denies any ear pain, sore throat, or congestion. CARDIOVASCULAR: Reports right-sided chest pain when he coughs, but also reports some shortness of breath. RESPIRATORY: Does report shortness of breath and cough with phlegm. Denies any blood in the phlegm. GASTROINTESTINAL: Denies any nausea, vomiting, constipation, or diarrhea. Denies any change in bowel habit. Denies any bleeding. GENITOURINARY: Denies any painful burning on urination. No blood in the urine. Denies any intermittent hesitancy. EXTREMITIES: Denies any swelling. SKIN: Without any rash or ulceration. LYMPHATIC: No lymph node swelling. PSYCHIATRIC: Denies any anxiety or depression. PAST MEDICAL HISTORY: Notable for osteoarthritis, bronchial asthma, back problem, diabetes, hypertension, hyperlipidemia. PAST SURGICAL HISTORY: Includes appendectomy, neck surgery, right hand surgery, and knee surgery. FAMILY HISTORY: No history of CKD or dialysis. SOCIAL HISTORY: Does report smoking everyday; also reports drinking a few beers on the weekend. Denies any drug abuse. MEDICATIONS: Home medications include ibuprofen, diclofenac, amitriptyline, Crestor, multivitamin, glipizide, enalapril, and folic acid. Current medications include Tylenol, amitriptyline, Lipitor, ceftriaxone, clindamycin, folic acid, lispro, multivitamin, oxycodone, Phenergan, half normal saline, and PPD testing. ALLERGIES: THERE ARE NO KNOWN DRUG ALLERGIES. PHYSICAL EXAMINATION: GENERAL: The patient is ill-appearing, not in acute distress at this time. VITAL SIGNS: The patient with temperature of 100.3, pulse rate of 103, blood pressure 100/61. NEUROLOGIC: The patient is alert and oriented x3. No focal deficit. Moving all upper and lower extremities. Cranial nerves II through XII intact. HEENT: Eyes: Bilateral pupils are equal and reactive. Conjunctivae are normal. No icterus or pallor. ENT: Oral cavity is normal; pharynx is normal. No rash, thrush, lesion, or ulceration. NECK: Supple without lymphadenopathy in the neck. There are no bruits. No thyromegaly. CARDIOVASCULAR: S1 and S2 normal. He has tachycardia. No murmur. RESPIRATORY: Bilateral vesicular breath sounds. Clear at this time. No added sounds could be heard. ABDOMEN: Abdomen is soft. The patient has right upper quadrant tenderness with possibly a hepatomegaly, which is sternal, otherwise no other organomegaly could be appreciated. GENITOURINARY: Kidney and bladder not palpable. EXTREMITIES: No edema at this time. SKIN: No rashes or ulcerations. Palpation has normal turgor. LYMPHATIC: No lymphadenopathy. PSYCHIATRIC: The patient is pleasant and cooperative. Judgement is appropriate. Affect is normal. Insight is present as well. MUSCULOSKELETAL: No joint tenderness or swelling at this time. LABORATORY DATA: Hemoglobin of 10.6, white blood count of 11.3, platelet count of 221 with predominantly he has 88% neutrophils and 2% bands. Blood gas shows pCO2 of 32 now. Chemistry shows sodium 140, potassium 4.3, bicarb is 22, creatinine is 2.3, bilirubin 2.7, glucose 246. Troponin is negative. AST and ALT is normal. Total bilirubin is 1.4. Albumin is 4.4. Urine have shown glucose with 100 protein and few rbc's. The patient had a CT scan of the chest, which had shown that he has a cavitary mass in the right middle lobe with advancing interstitial respiratory disease, abscess, versus neoplasm. Also, had calcified and noncalcified mediastinal hilar adenopathy and possible splenomegaly. The cavitary lesion is 5 x 4.6 x 4.5 cm and wall thick and somewhat irregular. ASSESSMENT: Overall condition is critical. 1. Acute kidney injury, likely due to current illness with the cavitary lesion in the lung, concerned for pneumonia versus malignancy considering his active smoker status, possibility of pulmo-renal syndrome cannot be excluded, but considering his large cavitary mass, does not favor as the antineutrophil cytoplasmic antibody vasculitis as the cause. Also contributed by his nonsteroidal antiinflammatory drugs intake. 2. History of diabetes mellitus, hypertension, hyperlipidemia, active smoker, cavitary lesion in the lung. RECOMMENDATIONS: No acute need for dialysis. Continue aggressive IV fluid hydration. We will change into normal saline, then avoid NSAIDs. We will also hold HENRIK inhibitors at this time. Antibiotic as per the primary team. We will also check for some serologies such as ANCA vasculitis and complement HIV, hepatitis B, and hepatitis C. Also, check for urine studies. Also, check for renal sonogram, but should consider pulmonary evaluation and tissue sampling for his lung mass. If renal function continues to deteriorate, may consider kidney biopsy, but considering his lung lesion, may consider that as a primary source for the tissue sampling. All questions were answered. Also, dose medications for reduced GFR. Thank you for the consult. Please call if any questions. Oliverio Cao MD
[2017-05-20] MEDS: Sodium Chloride 0.9% 1,000 ML IV SCH (04:19)
[2017-05-20 06:57] LABS: BASO % 0.1 % (0.0-2.0); EOS % 0.5 % (0.0-4.0); HEMATOCRIT 24.9 % (35.0-51.0); LYMPH # 0.4 K/uL (1.0-4.3); LYMPH % 6.7 % (20.0-40.0); MEAN CELL VOLUME 97.8 fl (80.0-94.0); MEAN CORPUSCULAR HEMOGLOBIN 32.6 pg (27.0-31.0); MEAN CORPUSCULAR HGB CONC 33.3 g/dL (33.0-37.0); MEAN PLATELET VOLUME 8.4 fl (7.2-11.7); MONO # 0.7 K/uL (0.0-0.8); MONO % 10.9 % (0.0-10.0); NEUT # 5.3 K/uL (1.8-7.0); NEUT % 81.8 % (50.0-75.0); RED CELL DISTRIBUTION WIDTH 13.1 % (11.5-14.5); WHITE BLOOD COUNT 6.4 K/uL (4.8-10.8)
[2017-05-20] MEDS: Insulin Lispro (humaLOG) 100 Units/ml Inj SC SCH ×3 (08:12→22:43)
[2017-05-20 09:15] LABS: CALCIUM 8.5 mg/dL (8.4-10.2); POTASSIUM 3.6 MMOL/L (3.6-5.0)
--- NOTE | 2017-05-20 09:39 | CP.PCM.PN ---
Subjective - Date & Time of Evaluation Date of Evaluation: 05/20/17 Time of Evaluation: 09:39 - Subjective Subjective: SOB IMPROVING STILL COUGHING C/O DIARRHEA Objective - Vital Signs/Intake and Output Vital Signs (last 24 hours): Temp Pulse Resp BP Pulse Ox 98.6 F 89 20 125/80 95 05/20/17 08:12 05/20/17 08:12 05/20/17 08:12 05/20/17 08:12 05/20/17 08:12 - Medications Medications: Current Medications Acetaminophen (Tylenol 325mg Tab) 650 mg PO Q6 PRN PRN Reason: Pain, moderate (4-7) Last Admin: 05/19/17 08:53 Dose: 650 mg Albuterol/Ipratropium (Duoneb 3 Mg/0.5 Mg (3 Ml) Ud) 3 ml INH RQ6 NICHOLE Last Admin: 05/20/17 07:21 Dose: 3 ml Albuterol/Ipratropium (Duoneb 3 Mg/0.5 Mg (3 Ml) Ud) 3 ml INH RQ6 PRN PRN Reason: Shortness of Breath Amitriptyline HCl (Elavil) 25 mg PO HS [facility] Last Admin: 05/19/17 21:38 Dose: 25 mg Atorvastatin Calcium (Lipitor) 20 mg PO DAILY [facility] Last Admin: 05/19/17 08:53 Dose: 20 mg Folic Acid (Folic Acid) 1 mg PO DAILY [facility] Last Admin: 05/19/17 08:53 Dose: 1 mg Clindamycin Phosphate 300 mg/ (Sodium Chloride) 102 mls @ 102 mls/hr IVPB Q8 [facility] Last Admin: 05/20/17 01:05 Dose: 102 mls/hr Sodium Chloride (Sodium Chloride 0.9%) 1,000 mls @ 125 mls/hr IV .Q8H [facility] Stop: 05/20/17 11:40 Last Admin: 05/20/17 04:19 Dose: Not Given Azithromycin 500 mg/ Sodium (Chloride) 250 mls @ 250 mls/hr IVPB DAILY [facility] Last Admin: 05/19/17 15:39 Dose: 250 mls/hr Piperacillin Sod/Tazobactam (Sod 2.25 gm/ Sodium Chloride) 100 mls @ 100 mls/ hr IVPB Q8 [facility] Last Admin: 05/20/17 01:01 Dose: 100 mls/hr Insulin Human Lispro (Humalog) 0 units SC BRKDIN NICHOLE PRN Reason: Protocol Last Admin: 05/19/17 17:50 Dose: 3 units Lactobacillus Acidophilus (Bacid Acidophilus) 1 cap PO BID [facility] Multivitamins/Minerals (Therapeutic-M Tab) 1 tab PO DAILY [facility] Last Admin: 05/19/17 08:52 Dose: 1 tab Oxycodone/Acetaminophen (Percocet 5/325 Mg Tab) 1 tab PO Q4 PRN PRN Reason: Pain, moderate (4-7) Stop: 05/22/17 11:07 Last Admin: 05/19/17 18:47 Dose: 1 tab Promethazine HCl/Dextromethorphan (Phenergan Dm Syrup) 10 ml PO Q6 PRN PRN Reason: Cough Last Admin: 05/19/17 18:46 Dose: 10 ml - Labs Labs: 05/20/17 05:30 05/20/17 08:30 - Constitutional Appears: Chronically Ill - Head Exam Head Exam: ATRAUMATIC, NORMAL INSPECTION, NORMOCEPHALIC - Eye Exam Eye Exam: EOMI, Normal appearance, PERRL Pupil Exam: NORMAL ACCOMODATION, PERRL - ENT Exam ENT Exam: Mucous Membranes Moist, Normal Exam - Neck Exam Neck Exam: Full ROM, Normal Inspection. absent: Lymphadenopathy - Respiratory Exam Respiratory Exam: Decreased Breath Sounds, Prolonged Expiratory Phase, Rales, NORMAL BREATHING PATTERN - Cardiovascular Exam Cardiovascular Exam: REGULAR RHYTHM, +S1, +S2. absent: Murmur - GI/Abdominal Exam GI & Abdominal Exam: Soft, Normal Bowel Sounds. absent: Tenderness - Rectal Exam Rectal Exam: NORMAL INSPECTION - Extremities Exam Extremities Exam: Full ROM, Normal Capillary Refill, Normal Inspection. absent : Joint Swelling, Pedal Edema - Back Exam Back Exam: NORMAL INSPECTION - Neurological Exam Neurological Exam: Alert, Awake, CN II-XII Intact, Normal Gait, Oriented x3 - Psychiatric Exam Psychiatric exam: Normal Affect, Normal Mood - Skin Skin Exam: Dry, Intact, Normal Color, Warm Assessment and Plan - Assessment and Plan (Free Text) Assessment: CAVITARY LUNG LESION DIARRHEA PROBABLY DUE TO ANTIBIOTICS ACUTE KIDNEY INJURY Plan: CONTINUE PRESENT RX STOOL FOR C.DIF
[2017-05-20] MEDS ORDERED: Sodium Chloride 0.9% 1,000 ML IV SCH (09:47)
[2017-05-20] MEDS ORDERED: Potassium Chloride 20 mEq ER Tab PO ONE (10:00)
[2017-05-20] MEDS: Lactobacillus Acidophilus 500 MU Cap PO SCH ×2 (10:11→17:36)
[2017-05-20] MEDS: Multivitamin With Minerals Tab PO SCH (10:13)
[2017-05-20] MEDS: Azithromycin 500 MG in Sodium Chloride 0.9% 250 ML IVPB SCH (10:16)
[2017-05-20 11:42] LABS: IRON 14 ug/dL (49-181)
--- NOTE | 2017-05-20 14:40 | PN ---
FOLLOWUP RENAL CONSULTATION CHIEF COMPLAINT: Increased frequency of bowel. HISTORY OF PRESENT ILLNESS AND REVIEW OF SYSTEMS: The patient reports that he had multiple episodes of bowel movement last night, also making urine. He reports the pain in the chest, right side, is better. Does report shortness of breath is also better, cough is better, but he is frustrated from all the testing he is going through. PHYSICAL EXAMINATION: GENERAL: The patient appeared comfortable. He is not in acute distress. He appears frustrated. VITAL SIGNS: Temperature is 98.6, blood pressure 125/80, pulse is 89. His saturation is well maintained. LUNGS: Bilateral vesicular breath sounds, he had occasional rales at the right base otherwise. CARDIOVASCULAR: S1, S2 normal. No murmur or rub. ABDOMEN: Soft, nontender. No organomegaly could be appreciated. EXTREMITIES: No edema. SKIN: No rashes or ulceration. LYMPH NODE: No lymphadenopathy in neck. HEMATOLOGY: No increased bleeding could be appreciated. PSYCHIATRIC: The patient is frustrated and at this time no hallucination. LABORATORY DATA: Workup is white blood cell count is 6.4, hemoglobin decreased to 8.3, platelet count is 174. His sodium is 142, potassium is 3.6, bicarb is 21, creatinine improved to 1.7, calcium is 8.5, glucose is 203. His complements are normal. His hep B and hep C also have been negative. Blood cultures have been negative so far. ASSESSMENT: 1. Nonoliguric acute kidney injury, likely due to underlying sepsis. 2. Right lung cavitary lesion, concerned for infectious versus malignancy. 3. Low suspicion for vasculitis as the cause. 4. Also it could be contributed by nonsteroidal antiinflammatory drugs intake at home. 5. Anemia, diabetes mellitus, hypertension, hyperlipidemia, active smoker, cavitary lesion in the lung. RECOMMENDATIONS: Renal function has improved. Continue with the IV fluid. We will supplement his potassium. We will also add some iron supplement. We will check iron, anemia workup as well. Renal sonogram and serology, they are all pending. Pulmonary and infectious disease following. Avoid NSAIDs, minimize the use of nephrotoxin, dose meds for his GFR. All questions were answered. Oliverio Cao MD
[2017-05-20] MEDS: Oxycodone/Acetaminophen 5/325 mg Tab PO PRN ×2 (17:45→23:09)
[2017-05-20] MEDS: Promethazine DM 12.5 mg-30 mg/10 ml Syrup PO PRN (18:30)
--- NOTE | 2017-05-20 22:29 | PN ---
DAILY PROGRESS NOTE DATE: 05/20/2017 SUBJECTIVE: His cough and right-sided chest pain are improving. PHYSICAL EXAMINATION: VITAL SIGNS: Blood pressure 123/75, temperature 99.3, respiratory rate 18, and pulse 90. HEENT: Pupils are equal and reactive to light. Normal-appearing mucosa of the conjunctivae, oropharynx, and nasal membrane mucosa. NECK: Supple. No JVD. No carotid bruits. No lymph node. No thyromegaly. CHEST AND LUNGS: Bilateral symmetrical expansion. Good air exchange. No rales. No rhonchi. CARDIOVASCULAR SYSTEM: PMI not localized. S1 and S2. No additional sounds. ABDOMEN: Normoactive bowel sounds. No tenderness. No organomegaly. No masses. EXTREMITIES: No cyanosis. No clubbing. No edema. CENTRAL NERVOUS SYSTEM: Alert, awake, and oriented x2. No neurological deficit could be appreciated. ASSESSMENT: 1. Right lung cavitary lesion with lung infiltration. 2. Acute kidney injury. 3. Type 2 diabetes mellitus. 4. Hypertension. PLAN: Enalapril was discontinued and the patient was started on IV antibiotics as well as collecting stool to rule out mycobacterium tuberculosis. Serology workup was sent for possible vasculitis glomerulopathy. Discussed the patient's condition with the freight sorter. Joceline Mendosa MD
[2017-05-21] MEDS: Albuterol-Ipratrop 3 mg / 0.5 (3 ml) UD INH SCH ×4 (01:01→19:42)
[2017-05-21 06:30] LABS: BLOOD UREA NITROGEN 15 mg/dl (9-20); CALCIUM 8.8 mg/dL (8.4-10.2); CARBON DIOXIDE 20 mmol/L (22-30); CHLORIDE 108 mmol/L (98-107); GFR AFRICAN-AMERICAN > 60; GLUCOSE,RANDOM 158 mg/dL (75-110); POTASSIUM 3.6 MMOL/L (3.6-5.0); SODIUM 139 mmol/l (132-148)
--- NOTE | 2017-05-21 07:03 | US ---
PROCEDURE: Ultrasound of the Kidneys HISTORY: Dx: Acute Renal Insufficiency COMPARISON: None available. TECHNIQUE: Sonogram of the kidneys. FINDINGS: RIGHT KIDNEY: Measures: 4.7 x 5.4 x 11.3 cm. Normal in size, contour and echogenicity. No stone, solid mass lesion or hydronephrosis visualized. LEFT KIDNEY: Measures: 5.2 x 5.5 x 12.5 cm. Normal in size, contour and echogenicity. No stone, solid mass lesion or hydronephrosis visualized. OTHER FINDINGS: None. IMPRESSION: Unremarkable renal sonogram.
[2017-05-21 07:04] LABS: BASO % 0.6 % (0.0-2.0); EOS # 0.1 K/uL (0.0-0.7); EOS % 1.6 % (0.0-4.0); LYMPH # 0.5 K/uL (1.0-4.3); LYMPH % 10.4 % (20.0-40.0); MEAN CELL VOLUME 97.9 fl (80.0-94.0); MEAN CORPUSCULAR HEMOGLOBIN 32.4 pg (27.0-31.0); MEAN CORPUSCULAR HGB CONC 33.1 g/dL (33.0-37.0); MEAN PLATELET VOLUME 8.5 fl (7.2-11.7); MONO # 0.4 K/uL (0.0-0.8); MONO % 7.4 % (0.0-10.0); RED CELL DISTRIBUTION WIDTH 13.4 % (11.5-14.5)
--- NOTE | 2017-05-21 09:27 | CP.PCM.PN ---
Subjective - Date & Time of Evaluation Date of Evaluation: 05/21/17 Time of Evaluation: 09:27 - Subjective Subjective: FEELS BETTER WANTS TO GO HOME DIARRHEA PRESENT BUT LESS C/O NOSE BLEEDS DUE TO O2 Objective - Vital Signs/Intake and Output Vital Signs (last 24 hours): Temp Pulse Resp BP Pulse Ox 98.5 F 79 20 134/80 98 05/21/17 08:16 05/21/17 08:16 05/21/17 08:16 05/21/17 08:16 05/21/17 08:16 - Medications Medications: Current Medications Acetaminophen (Tylenol 325mg Tab) 650 mg PO Q6 PRN PRN Reason: Pain, moderate (4-7) Last Admin: 05/19/17 08:53 Dose: 650 mg Albuterol/Ipratropium (Duoneb 3 Mg/0.5 Mg (3 Ml) Ud) 3 ml INH RQ6 [facility] Last Admin: 05/21/17 07:31 Dose: Not Given Albuterol/Ipratropium (Duoneb 3 Mg/0.5 Mg (3 Ml) Ud) 3 ml INH RQ6 PRN PRN Reason: Shortness of Breath Amitriptyline HCl (Elavil) 25 mg PO HS [facility] Last Admin: 05/20/17 22:42 Dose: 25 mg Atorvastatin Calcium (Lipitor) 20 mg PO DAILY [facility] Last Admin: 05/20/17 10:14 Dose: 20 mg Ferrous Sulfate (Feosol) 325 mg PO TID [facility] Last Admin: 05/20/17 17:37 Dose: 325 mg Folic Acid (Folic Acid) 1 mg PO DAILY [facility] Last Admin: 05/20/17 10:13 Dose: 1 mg Azithromycin 500 mg/ Sodium (Chloride) 250 mls @ 250 mls/hr IVPB DAILY [facility] Last Admin: 05/20/17 10:16 Dose: 250 mls/hr Piperacillin Sod/Tazobactam (Sod 2.25 gm/ Sodium Chloride) 100 mls @ 100 mls/ hr IVPB Q8 [facility] Last Admin: 05/21/17 01:11 Dose: 100 mls/hr Insulin Human Lispro (Humalog) 0 units SC ACHS [facility] PRN Reason: Protocol Last Admin: 05/20/17 22:43 Dose: Not Given Lactobacillus Acidophilus (Bacid Acidophilus) 1 cap PO BID [facility] Last Admin: 05/20/17 17:36 Dose: 1 cap Multivitamins/Minerals (Therapeutic-M Tab) 1 tab PO DAILY [facility] Last Admin: 05/20/17 10:13 Dose: 1 tab Oxycodone/Acetaminophen (Percocet 5/325 Mg Tab) 1 tab PO Q4 PRN PRN Reason: Pain, moderate (4-7) Stop: 05/22/17 11:07 Last Admin: 05/20/17 23:09 Dose: 1 tab Promethazine HCl/Dextromethorphan (Phenergan Dm Syrup) 10 ml PO Q6 PRN PRN Reason: Cough Last Admin: 05/20/17 18:30 Dose: 10 ml - Labs Labs: 05/21/17 05:50 05/21/17 05:50 - Constitutional Appears: No Acute Distress - Head Exam Head Exam: ATRAUMATIC, NORMAL INSPECTION, NORMOCEPHALIC - Eye Exam Eye Exam: EOMI, Normal appearance, PERRL Pupil Exam: NORMAL ACCOMODATION, PERRL - ENT Exam ENT Exam: Mucous Membranes Moist, Normal Exam - Neck Exam Neck Exam: Full ROM, Normal Inspection. absent: Lymphadenopathy - Respiratory Exam Respiratory Exam: Decreased Breath Sounds, Prolonged Expiratory Phase, Rales, NORMAL BREATHING PATTERN - Cardiovascular Exam Cardiovascular Exam: REGULAR RHYTHM, +S1, +S2. absent: Murmur - GI/Abdominal Exam GI & Abdominal Exam: Soft, Normal Bowel Sounds. absent: Tenderness - Rectal Exam Rectal Exam: NORMAL INSPECTION - Extremities Exam Extremities Exam: Full ROM, Normal Capillary Refill, Normal Inspection. absent : Joint Swelling, Pedal Edema - Back Exam Back Exam: NORMAL INSPECTION - Neurological Exam Neurological Exam: Alert, Awake, CN II-XII Intact, Normal Gait, Oriented x3 - Psychiatric Exam Psychiatric exam: Normal Affect, Normal Mood - Skin Skin Exam: Dry, Intact, Normal Color, Warm Assessment and Plan - Assessment and Plan (Free Text) Assessment: CAVITORY LUNG LESION RENAL INSUFFICIENCY IMPROVED Plan: CONTINUE PRESENT RX AWAIT SPUTUM STUDIES
[2017-05-21] MEDS: Insulin Lispro (humaLOG) 100 Units/ml Inj SC SCH ×4 (09:34→22:51)
[2017-05-21] MEDS: Azithromycin 500 MG in Sodium Chloride 0.9% 250 ML IVPB SCH (09:34)
[2017-05-21] MEDS: Multivitamin With Minerals Tab PO SCH (09:35)
--- NOTE | 2017-05-21 09:36 | CP.PCM.PN ---
Subjective - Date & Time of Evaluation Date of Evaluation: 05/21/17 Time of Evaluation: 09:33 - Subjective Subjective: No new event reported Patient feeling much better Objective - Vital Signs/Intake and Output Vital Signs (last 24 hours): Temp Pulse Resp BP Pulse Ox 98.5 F 79 20 134/80 98 05/21/17 08:16 05/21/17 08:16 05/21/17 08:16 05/21/17 08:16 05/21/17 08:16 - Medications Medications: Current Medications Acetaminophen (Tylenol 325mg Tab) 650 mg PO Q6 PRN PRN Reason: Pain, moderate (4-7) Last Admin: 05/19/17 08:53 Dose: 650 mg Albuterol/Ipratropium (Duoneb 3 Mg/0.5 Mg (3 Ml) Ud) 3 ml INH RQ6 [facility] Last Admin: 05/21/17 07:31 Dose: Not Given Albuterol/Ipratropium (Duoneb 3 Mg/0.5 Mg (3 Ml) Ud) 3 ml INH RQ6 PRN PRN Reason: Shortness of Breath Amitriptyline HCl (Elavil) 25 mg PO HS [facility] Last Admin: 05/20/17 22:42 Dose: 25 mg Atorvastatin Calcium (Lipitor) 20 mg PO DAILY [facility] Last Admin: 05/20/17 10:14 Dose: 20 mg Ferrous Sulfate (Feosol) 325 mg PO TID [facility] Last Admin: 05/20/17 17:37 Dose: 325 mg Folic Acid (Folic Acid) 1 mg PO DAILY [facility] Last Admin: 05/20/17 10:13 Dose: 1 mg Azithromycin 500 mg/ Sodium (Chloride) 250 mls @ 250 mls/hr IVPB DAILY [facility] Last Admin: 05/20/17 10:16 Dose: 250 mls/hr Piperacillin Sod/Tazobactam (Sod 2.25 gm/ Sodium Chloride) 100 mls @ 100 mls/ hr IVPB Q8 [facility] Last Admin: 05/21/17 01:11 Dose: 100 mls/hr Insulin Human Lispro (Humalog) 0 units SC ACHS [facility] PRN Reason: Protocol Last Admin: 05/20/17 22:43 Dose: Not Given Lactobacillus Acidophilus (Bacid Acidophilus) 1 cap PO BID [facility] Last Admin: 05/20/17 17:36 Dose: 1 cap Multivitamins/Minerals (Therapeutic-M Tab) 1 tab PO DAILY [facility] Last Admin: 05/20/17 10:13 Dose: 1 tab Oxycodone/Acetaminophen (Percocet 5/325 Mg Tab) 1 tab PO Q4 PRN PRN Reason: Pain, moderate (4-7) Stop: 05/22/17 11:07 Last Admin: 05/20/17 23:09 Dose: 1 tab Promethazine HCl/Dextromethorphan (Phenergan Dm Syrup) 10 ml PO Q6 PRN PRN Reason: Cough Last Admin: 05/20/17 18:30 Dose: 10 ml - Labs Labs: 05/21/17 05:50 05/21/17 05:50 - Constitutional Appears: No Acute Distress - ENT Exam ENT Exam: Mucous Membranes Moist - Respiratory Exam Respiratory Exam: absent: Chest Wall Tenderness - Cardiovascular Exam Cardiovascular Exam: absent: Rubs - GI/Abdominal Exam GI & Abdominal Exam: Normal Bowel Sounds - Extremities Exam Extremities Exam: absent: Calf Tenderness - Back Exam Back Exam: absent: CVA tenderness (L), CVA tenderness (R) - Neurological Exam Neurological Exam: Alert Assessment and Plan (1) Acute renal insufficiency Assessment & Plan: Acute kidney injury that has been improving serum creatinine coming down. The rest of the lab reviewed Waiting for the sputum report As noted by the infectious disease and pulmonary continue current treatment as noted 61 year old male with DM II, HTN, admitted with productive cough, fever and found to have cavitary lung lesion in right middle lobe that's fluid filled as per report ready by radiologist and abscess vs neoplasms. Status: Acute (2) Cavitary lesion of lung Status: Acute (3) Diabetes Status: Acute
[2017-05-21] MEDS: Lactobacillus Acidophilus 500 MU Cap PO SCH ×2 (09:39→17:12)
--- NOTE | 2017-05-21 10:57 | RAD ---
PROCEDURE: CHEST RADIOGRAPH, 1 VIEW HISTORY: CAVITARY LESION OF LUNG COMPARISON: 05/18/2017 FINDINGS: LUNGS: There is redemonstration of a thick-walled cavity in the right lower lobe. No fluid level is appreciated on today's examination. The left lung is clear. PLEURA: No pneumothorax or pleural fluid seen. CARDIOVASCULAR: Normal. OSSEOUS STRUCTURES: No significant abnormalities. VISUALIZED UPPER ABDOMEN: Normal. OTHER FINDINGS: None. IMPRESSION: Redemonstration of thick-walled cavity in the right lower lobe. The differential considerations include cavitating mass/ abscess.
--- NOTE | 2017-05-21 11:41 | CP.PCM.PN ---
Subjective - Date & Time of Evaluation Date of Evaluation: 05/21/17 Time of Evaluation: 12:00 - Subjective Subjective: ID note- pt. seen and examined. Pt. more energetic and breathing better. He states he had diarrhea yesterday but since clindamycin was d/c it is none today so far. still has cough but less. Objective - Vital Signs/Intake and Output Vital Signs (last 24 hours): Temp Pulse Resp BP Pulse Ox 98.5 F 79 20 134/80 98 05/21/17 08:16 05/21/17 09:00 05/21/17 08:16 05/21/17 08:16 05/21/17 08:16 - Medications Medications: Current Medications Acetaminophen (Tylenol 325mg Tab) 650 mg PO Q6 PRN PRN Reason: Pain, moderate (4-7) Last Admin: 05/19/17 08:53 Dose: 650 mg Albuterol/Ipratropium (Duoneb 3 Mg/0.5 Mg (3 Ml) Ud) 3 ml INH RQ6 [facility] Last Admin: 05/21/17 07:31 Dose: Not Given Albuterol/Ipratropium (Duoneb 3 Mg/0.5 Mg (3 Ml) Ud) 3 ml INH RQ6 PRN PRN Reason: Shortness of Breath Amitriptyline HCl (Elavil) 25 mg PO HS [facility] Last Admin: 05/20/17 22:42 Dose: 25 mg Atorvastatin Calcium (Lipitor) 20 mg PO DAILY [facility] Last Admin: 05/21/17 09:35 Dose: 20 mg Ferrous Sulfate (Feosol) 325 mg PO TID [facility] Last Admin: 05/21/17 09:35 Dose: 325 mg Folic Acid (Folic Acid) 1 mg PO DAILY [facility] Last Admin: 05/21/17 09:35 Dose: 1 mg Azithromycin 500 mg/ Sodium (Chloride) 250 mls @ 250 mls/hr IVPB DAILY [facility] Last Admin: 05/21/17 09:34 Dose: 250 mls/hr Piperacillin Sod/Tazobactam (Sod 2.25 gm/ Sodium Chloride) 100 mls @ 100 mls/ hr IVPB Q8 [facility] Last Admin: 05/21/17 09:33 Dose: 100 mls/hr Insulin Human Lispro (Humalog) 0 units SC ACHS [facility] PRN Reason: Protocol Last Admin: 05/21/17 09:34 Dose: 2 units Lactobacillus Acidophilus (Bacid Acidophilus) 1 cap PO BID [facility] Last Admin: 05/21/17 09:39 Dose: 1 cap Multivitamins/Minerals (Therapeutic-M Tab) 1 tab PO DAILY [facility] Last Admin: 05/21/17 09:35 Dose: 1 tab Oxycodone/Acetaminophen (Percocet 5/325 Mg Tab) 1 tab PO Q4 PRN PRN Reason: Pain, moderate (4-7) Stop: 05/22/17 11:07 Last Admin: 05/20/17 23:09 Dose: 1 tab Promethazine HCl/Dextromethorphan (Phenergan Dm Syrup) 10 ml PO Q6 PRN PRN Reason: Cough Last Admin: 05/20/17 18:30 Dose: 10 ml - Labs Labs: - Constitutional Appears: No Acute Distress - Head Exam Head Exam: ATRAUMATIC - Eye Exam Eye Exam: EOMI - ENT Exam ENT Exam: Normal Oropharynx - Respiratory Exam Respiratory Exam: NORMAL BREATHING PATTERN Additional comments: no wheezing slighty decreased at bases only - Cardiovascular Exam Cardiovascular Exam: RRR, +S1, +S2 - GI/Abdominal Exam GI & Abdominal Exam: Soft, Normal Bowel Sounds Additional comments: NT, ND - Extremities Exam Extremities Exam: Normal Inspection - Neurological Exam Neurological Exam: Alert, Oriented x3 - Additional Findings Additional findings: Laboratory Results - last 72 hr 05/18/17 05/18/17 05/18/17 20:58 20:58 20:58 WBC RBC Hgb Hct MCV MCH MCHC RDW Plt Count MPV Neut % (Auto) Lymph % (Auto) [place] % (Auto) Eos % (Auto) Baso % (Auto) Neut # Lymph # [place] # Eos # Baso # Sodium Potassium Chloride Carbon Dioxide Anion Gap BUN Creatinine Est GFR ( Amer) Est GFR (Non-Af Amer) POC Glucose (mg/dL) Random Glucose Calcium Iron TIBC % Saturation Ferritin Total Protein (PEP) Vitamin B12 Folate Ur Random Creatinine IgA 295.2 Serum Immunofixation JONATHAN Screen Proteinase 3 (PR3) <1.0 <1.0 Myeloperoxidase Ab <1.0 <1.0 Double Strand DNA Ab Complement C3 Complement C4 C. difficile Ag & Toxin Hep Bs Antigen Hep Bs Antibody Hep B Core IgM Ab Hepatitis C Antibody HIV 1&2 Antibody Screen 05/19/17 05/19/17 05/19/17 13:30 13:30 13:30 WBC RBC Hgb Hct MCV MCH MCHC RDW Plt Count MPV Neut % (Auto) Lymph % (Auto) [place] % (Auto) Eos % (Auto) Baso % (Auto) Neut # Lymph # [place] # Eos # Baso # Sodium Potassium Chloride Carbon Dioxide Anion Gap BUN Creatinine Est GFR ( Amer) Est GFR (Non-Af Amer) POC Glucose (mg/dL) Random Glucose Calcium Iron TIBC % Saturation Ferritin Total Protein (PEP) Vitamin B12 Folate Ur Random Creatinine IgA Serum Immunofixation JONATHAN Screen Proteinase 3 (PR3) Myeloperoxidase Ab Double Strand DNA Ab Complement C3 Complement C4 C. difficile Ag & Toxin Hep Bs Antigen Negative Hep Bs Antibody Negative Hep B Core IgM Ab Negative Hepatitis C Antibody Negative HIV 1&2 Antibody Screen Negative 05/19/17 05/19/17 05/19/17 13:30 13:30 16:09 WBC RBC Hgb Hct MCV MCH MCHC RDW Plt Count MPV Neut % (Auto) Lymph % (Auto) [place] % (Auto) Eos % (Auto) Baso % (Auto) Neut # Lymph # [place] # Eos # Baso # Sodium Potassium Chloride Carbon Dioxide Anion Gap BUN Creatinine Est GFR ( Amer) Est GFR (Non-Af Amer) POC Glucose (mg/dL) 225 H Random Glucose Calcium Iron TIBC % Saturation Ferritin Total Protein (PEP) Vitamin B12 Folate Ur Random Creatinine IgA Serum Immunofixation JONATHAN Screen Negative Proteinase 3 (PR3) Myeloperoxidase Ab Double Strand DNA Ab 1 Complement C3 158.0 Complement C4 46.2 H C. difficile Ag & Toxin Hep Bs Antigen Hep Bs Antibody Hep B Core IgM Ab Hepatitis C Antibody HIV 1&2 Antibody Screen 05/19/17 05/20/17 05/20/17 17:43 05:30 05:30 WBC 6.4 RBC 2.54 L Hgb 8.3 L D Hct 24.9 L MCV 97.8 H MCH 32.6 H MCHC 33.3 RDW 13.1 Plt Count 174 MPV 8.4 Neut % (Auto) 81.8 H Lymph % (Auto) 6.7 L [place] % (Auto) 10.9 H Eos % (Auto) 0.5 Baso % (Auto) 0.1 Neut # 5.3 Lymph # 0.4 L [place] # 0.7 Eos # 0.0 Baso # 0.0 Sodium Potassium Chloride Carbon Dioxide Anion Gap BUN Creatinine Est GFR ( Amer) Est GFR (Non-Af Amer) POC Glucose (mg/dL) 204 H Random Glucose Calcium Iron TIBC % Saturation Ferritin Total Protein (PEP) Vitamin B12 Folate Ur Random Creatinine 70.3 IgA Serum Immunofixation JONATHAN Screen Proteinase 3 (PR3) Myeloperoxidase Ab Double Strand DNA Ab Complement C3 Complement C4 C. difficile Ag & Toxin Hep Bs Antigen Hep Bs Antibody Hep B Core IgM Ab Hepatitis C Antibody HIV 1&2 Antibody Screen 05/20/17 05/20/17 05/20/17 08:30 08:30 10:20 WBC RBC Hgb Hct MCV MCH MCHC RDW Plt Count MPV Neut % (Auto) Lymph % (Auto) [place] % (Auto) Eos % (Auto) Baso % (Auto) Neut # Lymph # [place] # Eos # Baso # Sodium 142 Potassium 3.6 Chloride 108 H Carbon Dioxide 21 L Anion Gap 17 BUN 23 H Creatinine 1.7 H Est GFR ( Amer) 50 Est GFR (Non-Af Amer) 41 POC Glucose (mg/dL) Random Glucose 203 H Calcium 8.5 Iron 14 L TIBC 187 L % Saturation 8 L Ferritin 876.0 Total Protein (PEP) 6.0 L Vitamin B12 577 Folate 17.6 Ur Random Creatinine IgA Serum Immunofixation Not detected JONATHAN Screen Proteinase 3 (PR3) Myeloperoxidase Ab Double Strand DNA Ab Complement C3 Complement C4 C. difficile Ag & Toxin Hep Bs Antigen Hep Bs Antibody Hep B Core IgM Ab Hepatitis C Antibody HIV 1&2 Antibody Screen 05/20/17 05/20/17 05/20/17 10:45 16:15 17:16 WBC RBC Hgb Hct MCV MCH MCHC RDW Plt Count MPV Neut % (Auto) Lymph % (Auto) [place] % (Auto) Eos % (Auto) Baso % (Auto) Neut # Lymph # [place] # Eos # Baso # Sodium Potassium Chloride Carbon Dioxide Anion Gap BUN Creatinine Est GFR ( Amer) Est GFR (Non-Af Amer) POC Glucose (mg/dL) 276 H 389 H Random Glucose Calcium Iron TIBC % Saturation Ferritin Total Protein (PEP) Vitamin B12 Folate Ur Random Creatinine IgA Serum Immunofixation JONATHAN Screen Proteinase 3 (PR3) Myeloperoxidase Ab Double Strand DNA Ab Complement C3 Complement C4 C. difficile Ag & Toxin Negative Hep Bs Antigen Hep Bs Antibody Hep B Core IgM Ab Hepatitis C Antibody HIV 1&2 Antibody Screen 05/20/17 05/21/17 05/21/17 21:35 05:39 05:50 WBC 5.0 RBC 2.75 L Hgb 8.9 L Hct 27.0 L MCV 97.9 H MCH 32.4 H MCHC 33.1 RDW 13.4 Plt Count 181 MPV 8.5 Neut % (Auto) 80.0 H Lymph % (Auto) 10.4 L [place] % (Auto) 7.4 Eos % (Auto) 1.6 Baso % (Auto) 0.6 Neut # 4.0 Lymph # 0.5 L [place] # 0.4 Eos # 0.1 Baso # 0.0 Sodium Potassium Chloride Carbon Dioxide Anion Gap BUN Creatinine Est GFR ( Amer) Est GFR (Non-Af Amer) POC Glucose (mg/dL) 161 H 169 H Random Glucose Calcium Iron TIBC % Saturation Ferritin Total Protein (PEP) Vitamin B12 Folate Ur Random Creatinine IgA Serum Immunofixation JONATHAN Screen Proteinase 3 (PR3) Myeloperoxidase Ab Double Strand DNA Ab Complement C3 Complement C4 C. difficile Ag & Toxin Hep Bs Antigen Hep Bs Antibody Hep B Core IgM Ab Hepatitis C Antibody HIV 1&2 Antibody Screen 05/21/17 05/21/17 05/21/17 05:50 11:42 16:25 WBC RBC Hgb Hct MCV MCH MCHC RDW Plt Count MPV Neut % (Auto) Lymph % (Auto) [place] % (Auto) Eos % (Auto) Baso % (Auto) Neut # Lymph # [place] # Eos # Baso # Sodium 139 Potassium 3.6 Chloride 108 H Carbon Dioxide 20 L Anion Gap 15 BUN 15 Creatinine 1.2 Est GFR ( Amer) > 60 Est GFR (Non-Af Amer) > 60 POC Glucose (mg/dL) 285 H 226 H Random Glucose 158 H Calcium 8.8 Iron TIBC % Saturation Ferritin Total Protein (PEP) Vitamin B12 Folate Ur Random Creatinine IgA Serum Immunofixation JONATHAN Screen Proteinase 3 (PR3) Myeloperoxidase Ab Double Strand DNA Ab Complement C3 Complement C4 C. difficile Ag & Toxin Hep Bs Antigen Hep Bs Antibody Hep B Core IgM Ab Hepatitis C Antibody HIV 1&2 Antibody Screen 05/21/17 05/22/17 21:19 05:51 WBC RBC Hgb Hct MCV MCH MCHC RDW Plt Count MPV Neut % (Auto) Lymph % (Auto) [place] % (Auto) Eos % (Auto) Baso % (Auto) Neut # Lymph # [place] # Eos # Baso # Sodium Potassium Chloride Carbon Dioxide Anion Gap BUN Creatinine Est GFR ( Amer) Est GFR (Non-Af Amer) POC Glucose (mg/dL) 259 H 147 H Random Glucose Calcium Iron TIBC % Saturation Ferritin Total Protein (PEP) Vitamin B12 Folate Ur Random Creatinine IgA Serum Immunofixation JONATHAN Screen Proteinase 3 (PR3) Myeloperoxidase Ab Double Strand DNA Ab Complement C3 Complement C4 C. difficile Ag & Toxin Hep Bs Antigen Hep Bs Antibody Hep B Core IgM Ab Hepatitis C Antibody HIV 1&2 Antibody Screen Microbiology 05/19/17 17:20 Blood-Venous Blood Culture - Preliminary NO GROWTH AFTER 48 HOURS 05/18/17 17:00 Blood-Venous Blood Culture - Preliminary NO GROWTH AFTER 3 DAYS 05/18/17 16:45 Blood-Venous Blood Culture - Preliminary NO GROWTH AFTER 3 DAYS 05/19/17 11:00 Other: Please Indicate Mycobacterial Culture - Preliminary 05/20/17 11:00 Sputum Gram Stain - Final Accession No. : [id number] Patient Name / ID : SALAZAR Barnard / [id number] Exam Date : 05/21/2017 09:33:19 ( Approved ) Study Comment : Sex / Age : M / [id number] Creator : ANAMIKA GROVE MD Dictator : ANAMIKA GROVE MD Director Of Market Research : Military Professional : ANAMIKA GROVE MD Approver2 : Report Date : 05/21/2017 10:52:02 My Comment : PROCEDURE: CHEST RADIOGRAPH, 1 VIEW HISTORY: CAVITARY LESION OF LUNG COMPARISON: 05/18/2017 FINDINGS: LUNGS: There is redemonstration of a thick-walled cavity in the right lower lobe. No fluid level is appreciated on today's examination. The left lung is clear. PLEURA: No pneumothorax or pleural fluid seen. CARDIOVASCULAR: Normal. OSSEOUS STRUCTURES: No significant abnormalities. VISUALIZED UPPER ABDOMEN: Normal. OTHER FINDINGS: None. IMPRESSION: Redemonstration of thick-walled cavity in the right lower lobe. The differential considerations include cavitating mass/ abscess. Assessment and Plan (1) Cavitary lesion of lung Status: Acute (2) Cough Status: Acute (3) Fever Status: Acute (4) Diabetes Status: Acute - Assessment and Plan (Free Text) Assessment: A/P- 61 year old male with DM II, HTN, admitted with productive cough, fever and found to have cavitary lung lesion in right middle lobe that's fluid filled as per report ready by radiologist and abscess vs neoplasms. remains afebrile normal wbc count blood cx- neg sputum cx- neg sputum AFB- neg x 1 Right middle lobe cavitary lesions with fluid level as per radiology mass vs abscess. plan- advise to continue with IV zosyn day #4. continue with zithromax to cover for atypicals. start vancomycin (renal dose). clindamycin d/c secondary to diarrhea. keep vanco trough <15. Airborne isolation till sputum AFB neg x 3.
[2017-05-21] MEDS: Promethazine DM 12.5 mg-30 mg/10 ml Syrup PO PRN (17:11)
[2017-05-21 17:43] LABS: FOLATE 17.6 ng/mL
[2017-05-21] MEDS: Oxycodone/Acetaminophen 5/325 mg Tab PO PRN (22:56)
--- NOTE | 2017-05-21 23:16 | PN ---
DATE: 05/21/2017 DAILY PROGRESS NOTE SUBJECTIVE: The patient is seen today. He is not in any cardiopulmonary distress. The patient still has some cough, but right-sided chest pain is less. PHYSICAL EXAMINATION: VITAL SIGNS: Blood pressure 124/78, temperature 98.8, respiratory rate 20, and pulse 78. HEENT: Pupils are equal and reactive to light. Normal-appearing mucosa of the conjunctivae, oropharynx, and nasal membrane mucosa. NECK: Supple. No JVD. No carotid bruits. No lymph node. No thyromegaly. CHEST AND LUNGS: Bilateral symmetrical expansion. Good air exchange. No rales. No rhonchi. CARDIOVASCULAR SYSTEM: PMI not localized. S1 and S2. No additional sounds. ABDOMEN: Normoactive bowel sounds. No tenderness. No organomegaly. No masses. EXTREMITIES: No cyanosis. No clubbing. No edema. CENTRAL NERVOUS SYSTEM: Alert, awake, and oriented x3. No neurological deficit could be appreciated. ASSESSMENT: 1. Right-sided cavitary lung lesion. 2. Acute renal failure, which is resolving with BUN down to 15 and creatinine 1.2. PLAN: Continue current medications and follow recommendations of ecommerce merchandising manager as well as Infectious Disease. Joceline Mendosa MD
[2017-05-22] MEDS: Albuterol-Ipratrop 3 mg / 0.5 (3 ml) UD INH SCH ×4 (01:16→19:19)
--- NOTE | 2017-05-22 09:03 | CP.PCM.PN ---
Subjective - Date & Time of Evaluation Date of Evaluation: 05/22/17 Time of Evaluation: 09:04 - Subjective Subjective: NO NEW CLINICAL FINDINGS SPUTUM STUDIES SO FAR NON-REVEALING CXR-PERSISTENT PULMONARY CAVITY WITH RESOLUTION OF AIR/FLUID LEVEL JONATHAN SEROLOGY NEGATIVE ANCA STUDIES PENDING RENAL FUNCTION IMPROVED WILL CONTINUE PRESENT RX WILL CONTINUE TO FOLLOW WITH YOU Objective - Vital Signs/Intake and Output Vital Signs (last 24 hours): Temp Pulse Resp BP Pulse Ox 98.4 F 79 18 125/81 99 05/22/17 08:50 05/22/17 08:50 05/22/17 08:50 05/22/17 08:50 05/22/17 08:50 - Medications Medications: Current Medications Acetaminophen (Tylenol 325mg Tab) 650 mg PO Q6 PRN PRN Reason: Pain, moderate (4-7) Last Admin: 05/19/17 08:53 Dose: 650 mg Albuterol/Ipratropium (Duoneb 3 Mg/0.5 Mg (3 Ml) Ud) 3 ml INH RQ6 [facility] Last Admin: 05/22/17 08:31 Dose: Not Given Albuterol/Ipratropium (Duoneb 3 Mg/0.5 Mg (3 Ml) Ud) 3 ml INH RQ6 PRN PRN Reason: Shortness of Breath Amitriptyline HCl (Elavil) 25 mg PO HS [facility] Last Admin: 05/21/17 22:59 Dose: Not Given Atorvastatin Calcium (Lipitor) 20 mg PO DAILY [facility] Last Admin: 05/21/17 09:35 Dose: 20 mg Ferrous Sulfate (Feosol) 325 mg PO TID [facility] Last Admin: 05/21/17 17:12 Dose: 325 mg Folic Acid (Folic Acid) 1 mg PO DAILY [facility] Last Admin: 05/21/17 09:35 Dose: 1 mg Azithromycin 500 mg/ Sodium (Chloride) 250 mls @ 250 mls/hr IVPB DAILY [facility] Last Admin: 05/21/17 09:34 Dose: 250 mls/hr Piperacillin Sod/Tazobactam (Sod 2.25 gm/ Sodium Chloride) 100 mls @ 100 mls/ hr IVPB Q8 [facility] Last Admin: 05/22/17 01:01 Dose: 100 mls/hr Insulin Human Lispro (Humalog) 0 units SC ACHS [facility] PRN Reason: Protocol Last Admin: 05/21/17 22:51 Dose: Not Given Lactobacillus Acidophilus (Bacid Acidophilus) 1 cap PO BID [facility] Last Admin: 05/21/17 17:12 Dose: 1 cap Multivitamins/Minerals (Therapeutic-M Tab) 1 tab PO DAILY [facility] Last Admin: 05/21/17 09:35 Dose: 1 tab Oxycodone/Acetaminophen (Percocet 5/325 Mg Tab) 1 tab PO Q4 PRN PRN Reason: Pain, moderate (4-7) Stop: 05/22/17 11:07 Last Admin: 05/21/17 22:56 Dose: 1 tab Promethazine HCl/Dextromethorphan (Phenergan Dm Syrup) 10 ml PO Q6 PRN PRN Reason: Cough Last Admin: 05/21/17 17:11 Dose: 10 ml - Labs Labs: 05/21/17 05:50 05/21/17 05:50
[2017-05-22] MEDS: Multivitamin With Minerals Tab PO SCH (10:21)
[2017-05-22] MEDS: Azithromycin 500 MG in Sodium Chloride 0.9% 250 ML IVPB SCH (10:21)
[2017-05-22] MEDS: Insulin Lispro (humaLOG) 100 Units/ml Inj SC SCH ×4 (10:22→22:37)
[2017-05-22] MEDS: Promethazine DM 12.5 mg-30 mg/10 ml Syrup PO PRN (10:27)
[2017-05-22] MEDS: Lactobacillus Acidophilus 500 MU Cap PO SCH ×2 (11:56→17:12)
--- NOTE | 2017-05-22 12:15 | CP.PCM.PN ---
Subjective - Date & Time of Evaluation Date of Evaluation: 05/22/17 Time of Evaluation: 12:13 - Subjective Subjective: Patient and bed is feeling much better Vital signs stable X-ray and pulmonary note noted Lab reviewed Serum creatinine coming back to normal Patient appeared to have acute kidney injury which has been recovering Hepatitis negative we will repeat urinalysis another couple days. Impression and plan Acute kidney injury recovering Cavitary lesion of the lung Continue monitoring Objective - Vital Signs/Intake and Output Vital Signs (last 24 hours): Temp Pulse Resp BP Pulse Ox 98.4 F 79 18 125/81 99 05/22/17 08:50 05/22/17 08:50 05/22/17 08:50 05/22/17 08:50 05/22/17 08:50 - Medications Medications: Current Medications Acetaminophen (Tylenol 325mg Tab) 650 mg PO Q6 PRN PRN Reason: Pain, moderate (4-7) Last Admin: 05/19/17 08:53 Dose: 650 mg Albuterol/Ipratropium (Duoneb 3 Mg/0.5 Mg (3 Ml) Ud) 3 ml INH RQ6 [facility] Last Admin: 05/22/17 08:31 Dose: Not Given Albuterol/Ipratropium (Duoneb 3 Mg/0.5 Mg (3 Ml) Ud) 3 ml INH RQ6 PRN PRN Reason: Shortness of Breath Amitriptyline HCl (Elavil) 25 mg PO HS [facility] Last Admin: 05/21/17 22:59 Dose: Not Given Atorvastatin Calcium (Lipitor) 20 mg PO DAILY [facility] Last Admin: 05/22/17 10:22 Dose: 20 mg Cholestyramine Resin (Questran) 4 gm PO TID [facility] Ferrous Sulfate (Feosol) 325 mg PO TID [facility] Last Admin: 05/22/17 10:21 Dose: 325 mg Folic Acid (Folic Acid) 1 mg PO DAILY [facility] Last Admin: 05/22/17 10:22 Dose: 1 mg Azithromycin 500 mg/ Sodium (Chloride) 250 mls @ 250 mls/hr IVPB DAILY [facility] Last Admin: 05/22/17 10:21 Dose: 250 mls/hr Piperacillin Sod/Tazobactam (Sod 2.25 gm/ Sodium Chloride) 100 mls @ 100 mls/ hr IVPB Q8 [facility] Last Admin: 05/22/17 10:20 Dose: 100 mls/hr Vancomycin HCl 750 mg/ Sodium (Chloride) 250 mls @ 166.667 mls/hr IVPB DAILY [facility] Insulin Human Lispro (Humalog) 0 units SC ACHS [facility] PRN Reason: Protocol Last Admin: 05/22/17 10:22 Dose: Not Given Lactobacillus Acidophilus (Bacid Acidophilus) 1 cap PO BID [facility] Last Admin: 05/22/17 11:56 Dose: Not Given Multivitamins/Minerals (Therapeutic-M Tab) 1 tab PO DAILY [facility] Last Admin: 05/22/17 10:21 Dose: 1 tab Promethazine HCl/Dextromethorphan (Phenergan Dm Syrup) 10 ml PO Q6 PRN PRN Reason: Cough Last Admin: 05/22/17 10:27 Dose: 10 ml - Labs Labs: 05/21/17 05:50 05/21/17 05:50 Assessment and Plan (1) Acute renal insufficiency Status: Acute (2) Cavitary lesion of lung Status: Acute (3) Diabetes Status: Acute
[2017-05-22 13:51] LABS: BETA 1 GLOBULIN 0.3 g/dL (0.4-0.6); BETA 2 GLOBULIN 0.5 g/dL (0.2-0.5); GAMMA GLOBULIN 0.9 g/dL (0.8-1.7)
[2017-05-22] MEDS: Cholestyramine 4 gm/Pkt UD PO SCH ×2 (14:07→17:11)
[2017-05-22] MEDS ORDERED: Oxycodone/Acetaminophen 5/325 mg Tab PO PRN (22:34)
[2017-05-22] MEDS: Oxycodone/Acetaminophen 5/325 mg Tab PO PRN (22:42)
[2017-05-23] MEDS: Albuterol-Ipratrop 3 mg / 0.5 (3 ml) UD INH SCH ×4 (01:02→19:24)
--- NOTE | 2017-05-23 04:13 | PN ---
DATE: 05/22/2017 SUBJECTIVE: The patient is seen today, 05/22/2017. He has still pain on the right side of the chest with some cough. PHYSICAL EXAMINATION: VITAL SIGNS: Blood pressure is 127/80, temperature 98, respiratory rate 20 and pulse 73. HEENT: Pupils are equal and reactive to light. Normal-appearing mucosa of the conjunctivae, oropharyngeal and nasal membrane mucosa. NECK: Supple. No JVD. No carotid bruits. No lymph node. No thyromegaly. CHEST AND LUNGS: Bilateral symmetrical expansion. Good air exchange. No rales, no rhonchi. CARDIOVASCULAR SYSTEM: PMI not localized. S1 and S2. No additional sounds. ABDOMEN: Normoactive bowel sounds. No tenderness. No organomegaly, no masses. EXTREMITIES: No cyanosis, no clubbing, no edema. CENTRAL NERVOUS SYSTEM: Alert, awake and oriented x3. No neurological deficits could be appreciated. ASSESSMENT: 1. Mid lung cavitary lesion with pneumonic reaction. Rule out tuberculosis. 2. Status post acute renal failure. 3. Type 2 diabetes mellitus. 4. Hypertension. PLAN: Continue current antibiotics and we will follow up the Acid-Fast Bacilli, staining samples sent to the lab. Follow trumpet player and ID recommendations. Joceline Mendosa MD
[2017-05-23] MEDS: Insulin Lispro (humaLOG) 100 Units/ml Inj SC SCH ×4 (06:38→21:46)
[2017-05-23] MEDS: Multivitamin With Minerals Tab PO SCH (10:02)
[2017-05-23] MEDS: Lactobacillus Acidophilus 500 MU Cap PO SCH ×2 (10:02→16:03)
[2017-05-23] MEDS: Cholestyramine 4 gm/Pkt UD PO SCH ×3 (10:03→16:09)
[2017-05-23] MEDS: Azithromycin 500 MG in Sodium Chloride 0.9% 250 ML IVPB SCH (10:09)
--- NOTE | 2017-05-23 10:40 | CP.PCM.PN ---
Subjective - Date & Time of Evaluation Date of Evaluation: 05/23/17 Time of Evaluation: 10:41 - Subjective Subjective: NO SOB BUT STILL HAS PLEURITIC CHEST PAINS NO FURTHER SPUTUM PRODUCTION REFUSES BRONCHODILATOR RX BECAUSE OF?NOSEBLEEDS FEELS BETTER Objective - Vital Signs/Intake and Output Vital Signs (last 24 hours): Temp Pulse Resp BP Pulse Ox 98.4 F 70 18 126/78 96 05/23/17 08:00 05/23/17 08:00 05/23/17 08:00 05/23/17 08:00 05/23/17 08:00 - Medications Medications: Current Medications Acetaminophen (Tylenol 325mg Tab) 650 mg PO Q6 PRN PRN Reason: Pain, moderate (4-7) Last Admin: 05/19/17 08:53 Dose: 650 mg Albuterol/Ipratropium (Duoneb 3 Mg/0.5 Mg (3 Ml) Ud) 3 ml INH RQ6 [facility] Last Admin: 05/23/17 08:02 Dose: Not Given Albuterol/Ipratropium (Duoneb 3 Mg/0.5 Mg (3 Ml) Ud) 3 ml INH RQ6 PRN PRN Reason: Shortness of Breath Amitriptyline HCl (Elavil) 25 mg PO HS [facility] Last Admin: 05/22/17 22:45 Dose: Not Given Atorvastatin Calcium (Lipitor) 20 mg PO DAILY [facility] Last Admin: 05/23/17 10:03 Dose: 20 mg Cholestyramine Resin (Questran) 4 gm PO TID [facility] Last Admin: 05/23/17 10:03 Dose: 4 gm Ferrous Sulfate (Feosol) 325 mg PO TID [facility] Last Admin: 05/22/17 17:11 Dose: 325 mg Folic Acid (Folic Acid) 1 mg PO DAILY [facility] Last Admin: 05/23/17 10:02 Dose: 1 mg Azithromycin 500 mg/ Sodium (Chloride) 250 mls @ 250 mls/hr IVPB DAILY [facility] Last Admin: 05/23/17 10:09 Dose: 250 mls/hr Piperacillin Sod/Tazobactam (Sod 2.25 gm/ Sodium Chloride) 100 mls @ 100 mls/ hr IVPB Q8 [facility] Last Admin: 05/23/17 10:06 Dose: 100 mls/hr Vancomycin HCl 750 mg/ Sodium (Chloride) 250 mls @ 166.667 mls/hr IVPB DAILY [facility] Last Admin: 05/23/17 10:08 Dose: 166.667 mls/hr Insulin Human Lispro (Humalog) 0 units SC ACHS [facility] PRN Reason: Protocol Last Admin: 05/23/17 06:38 Dose: Not Given Lactobacillus Acidophilus (Bacid Acidophilus) 1 cap PO BID [facility] Last Admin: 05/23/17 10:02 Dose: 1 cap Multivitamins/Minerals (Therapeutic-M Tab) 1 tab PO DAILY [facility] Last Admin: 05/23/17 10:02 Dose: 1 tab Oxycodone/Acetaminophen (Percocet 5/325 Mg Tab) 1 tab PO Q4 PRN PRN Reason: Pain, moderate (4-7) Stop: 05/25/17 22:34 Last Admin: 05/22/17 22:42 Dose: 1 tab Oxycodone/Acetaminophen (Percocet 5/325 Mg Tab) 2 tab PO Q4 PRN PRN Reason: Pain, severe (8-10) Stop: 05/25/17 22:35 Promethazine HCl/Dextromethorphan (Phenergan Dm Syrup) 10 ml PO Q6 PRN PRN Reason: Cough Last Admin: 05/22/17 10:27 Dose: 10 ml - Labs Labs: 05/21/17 05:50 05/21/17 05:50 - Constitutional Appears: No Acute Distress - Head Exam Head Exam: ATRAUMATIC, NORMAL INSPECTION, NORMOCEPHALIC - Eye Exam Eye Exam: EOMI, Normal appearance, PERRL Pupil Exam: NORMAL ACCOMODATION, PERRL - ENT Exam ENT Exam: Mucous Membranes Moist, Normal Exam - Neck Exam Neck Exam: Full ROM, Normal Inspection. absent: Lymphadenopathy - Respiratory Exam Respiratory Exam: Rales, NORMAL BREATHING PATTERN - Cardiovascular Exam Cardiovascular Exam: REGULAR RHYTHM, +S1, +S2. absent: Murmur - GI/Abdominal Exam GI & Abdominal Exam: Soft, Normal Bowel Sounds. absent: Tenderness - Rectal Exam Rectal Exam: NORMAL INSPECTION - Extremities Exam Extremities Exam: Full ROM, Normal Capillary Refill, Normal Inspection. absent : Joint Swelling, Pedal Edema - Back Exam Back Exam: NORMAL INSPECTION - Neurological Exam Neurological Exam: Alert, Awake, CN II-XII Intact, Normal Gait, Oriented x3 - Psychiatric Exam Psychiatric exam: Normal Affect, Normal Mood - Skin Skin Exam: Dry, Intact, Normal Color, Warm Assessment and Plan - Assessment and Plan (Free Text) Assessment: CAVITARY LUNG LESION--PROBABLY ABSCESS--R/O TB DOUBT MALIGNANCY ALL CULTURES SO FAR NON-REVEALING Plan: CONTINUE IV ANTIBIOTIC RX AWAIT SPUTUM STUDIES--AFB AND CULTURES SERIAL CXRS UNTIL CAVITY IMPROVES/RESOLVES
--- NOTE | 2017-05-23 15:10 | RAD ---
PROCEDURE: CHEST RADIOGRAPH, 1 VIEW HISTORY: CAVITARY LUNG LESION COMPARISON: 05/21/2017 single-view chest. 05/18/2017 CT thorax. FINDINGS: LUNGS: Stable cavitary mass right middle lobe better visualized on the CT scan. PLEURA: No pneumothorax or pleural fluid seen. CARDIOVASCULAR: No radiographic findings to suggest acute or significant cardiovascular disease. OSSEOUS STRUCTURES: No significant abnormalities. VISUALIZED UPPER ABDOMEN: Normal. OTHER FINDINGS: None. IMPRESSION: No significant interval change compared to the prior examination(s).
[2017-05-23] MEDS: Oxycodone/Acetaminophen 5/325 mg Tab PO PRN (21:44)
[2017-05-24] MEDS: Albuterol-Ipratrop 3 mg / 0.5 (3 ml) UD INH SCH ×4 (01:00→19:38)
[2017-05-24] MEDS: Insulin Lispro (humaLOG) 100 Units/ml Inj SC SCH ×4 (08:20→21:36)
--- NOTE | 2017-05-24 09:35 | CP.PCM.PN ---
Subjective - Date & Time of Evaluation Date of Evaluation: 05/24/17 Time of Evaluation: 09:38 - Subjective Subjective: SHORTNESS OF BREATH IMPROVED STILL HAS PLEURITIC CHEST PAINS ON COUGHING Objective - Vital Signs/Intake and Output Vital Signs (last 24 hours): Temp Pulse Resp BP Pulse Ox 97.7 F 66 20 128/81 99 05/24/17 08:12 05/24/17 08:12 05/24/17 08:12 05/24/17 08:12 05/24/17 08:12 - Medications Medications: Current Medications Acetaminophen (Tylenol 325mg Tab) 650 mg PO Q6 PRN PRN Reason: Pain, moderate (4-7) Last Admin: 05/19/17 08:53 Dose: 650 mg Albuterol/Ipratropium (Duoneb 3 Mg/0.5 Mg (3 Ml) Ud) 3 ml INH RQ6 [facility] Last Admin: 05/24/17 08:01 Dose: Not Given Albuterol/Ipratropium (Duoneb 3 Mg/0.5 Mg (3 Ml) Ud) 3 ml INH RQ6 PRN PRN Reason: Shortness of Breath Amitriptyline HCl (Elavil) 25 mg PO HS [facility] Last Admin: 05/23/17 21:46 Dose: 25 mg Atorvastatin Calcium (Lipitor) 20 mg PO DAILY [facility] Last Admin: 05/23/17 10:03 Dose: 20 mg Cholestyramine Resin (Questran) 4 gm PO TID [facility] Last Admin: 05/23/17 16:09 Dose: 4 gm Ferrous Sulfate (Feosol) 325 mg PO TID [facility] Last Admin: 05/23/17 16:13 Dose: 325 mg Folic Acid (Folic Acid) 1 mg PO DAILY [facility] Last Admin: 05/23/17 10:02 Dose: 1 mg Azithromycin 500 mg/ Sodium (Chloride) 250 mls @ 250 mls/hr IVPB DAILY [facility] Last Admin: 05/23/17 10:09 Dose: 250 mls/hr Piperacillin Sod/Tazobactam (Sod 2.25 gm/ Sodium Chloride) 100 mls @ 100 mls/ hr IVPB Q8 [facility] Last Admin: 05/24/17 01:08 Dose: 100 mls/hr Vancomycin HCl 750 mg/ Sodium (Chloride) 250 mls @ 166.667 mls/hr IVPB DAILY [facility] Last Admin: 05/23/17 10:08 Dose: 166.667 mls/hr Insulin Human Lispro (Humalog) 0 units SC ACHS [facility] PRN Reason: Protocol Last Admin: 05/23/17 21:46 Dose: Not Given Lactobacillus Acidophilus (Bacid Acidophilus) 1 cap PO BID [facility] Last Admin: 05/23/17 16:03 Dose: 1 cap Multivitamins/Minerals (Therapeutic-M Tab) 1 tab PO DAILY [facility] Last Admin: 05/23/17 10:02 Dose: 1 tab Oxycodone/Acetaminophen (Percocet 5/325 Mg Tab) 1 tab PO Q4 PRN PRN Reason: Pain, moderate (4-7) Stop: 05/25/17 22:34 Last Admin: 05/23/17 21:44 Dose: 1 tab Oxycodone/Acetaminophen (Percocet 5/325 Mg Tab) 2 tab PO Q4 PRN PRN Reason: Pain, severe (8-10) Stop: 05/25/17 22:35 Promethazine HCl/Dextromethorphan (Phenergan Dm Syrup) 10 ml PO Q6 PRN PRN Reason: Cough Last Admin: 05/22/17 10:27 Dose: 10 ml - Labs Labs: 05/21/17 05:50 05/21/17 05:50 - Constitutional Appears: No Acute Distress - Head Exam Head Exam: ATRAUMATIC, NORMAL INSPECTION, NORMOCEPHALIC - Eye Exam Eye Exam: EOMI, Normal appearance, PERRL Pupil Exam: NORMAL ACCOMODATION, PERRL - ENT Exam ENT Exam: Mucous Membranes Moist, Normal Exam - Neck Exam Neck Exam: Full ROM, Normal Inspection. absent: Lymphadenopathy - Respiratory Exam Respiratory Exam: Clear to Ausculation Bilateral, Prolonged Expiratory Phase, NORMAL BREATHING PATTERN - Cardiovascular Exam Cardiovascular Exam: REGULAR RHYTHM, +S1, +S2. absent: Murmur - GI/Abdominal Exam GI & Abdominal Exam: Soft, Normal Bowel Sounds. absent: Tenderness - Rectal Exam Rectal Exam: NORMAL INSPECTION - Extremities Exam Extremities Exam: Full ROM, Normal Capillary Refill, Normal Inspection. absent : Joint Swelling, Pedal Edema - Back Exam Back Exam: NORMAL INSPECTION - Neurological Exam Neurological Exam: Alert, Awake, CN II-XII Intact, Normal Gait, Oriented x3 - Psychiatric Exam Psychiatric exam: Normal Affect, Normal Mood - Skin Skin Exam: Dry, Intact, Normal Color, Warm - Additional Findings Additional findings: CXR-UNCHANGED CAVITARY LESION SPUTUM FOR AFB NEGATIVE X 2 ALL CULTURES NEGATIVE SO FAR Assessment and Plan - Assessment and Plan (Free Text) Assessment: CAVITARY LUNG LESION==PROBABLE LUNG ABSCESS Plan: BRONCHOSCOPIC EVALUATION OF AIRWAYS FOR DEFINITIVE DIAGNOSIS OF LUNG LESION ADVISED BUT PT DECLINED WILL CONTINUE PRESENT IV ANTIBIOTIC RX ANALGESICS FOR PAIN AWAIT FINAL SPUTUM AFB RESULTS
[2017-05-24] MEDS: Azithromycin 500 MG in Sodium Chloride 0.9% 250 ML IVPB SCH (09:58)
[2017-05-24] MEDS: Cholestyramine 4 gm/Pkt UD PO SCH ×3 (09:59→16:51)
[2017-05-24] MEDS: Lactobacillus Acidophilus 500 MU Cap PO SCH ×2 (09:59→16:50)
[2017-05-24] MEDS: Multivitamin With Minerals Tab PO SCH (09:59)
--- NOTE | 2017-05-24 11:11 | CP.PCM.PN ---
Subjective - Date & Time of Evaluation Date of Evaluation: 05/24/17 Time of Evaluation: 13:00 - Subjective Subjective: ID Note- Pt. seen and examined today. denies any fever or chills. denies any sob, states his pleuritic chest pain is much less. states he might have bronchoscopy tomm. Objective - Vital Signs/Intake and Output Vital Signs (last 24 hours): Temp Pulse Resp BP Pulse Ox 97.7 F 66 20 128/81 99 05/24/17 08:12 05/24/17 09:00 05/24/17 08:12 05/24/17 08:12 05/24/17 08:12 - Medications Medications: Current Medications Acetaminophen (Tylenol 325mg Tab) 650 mg PO Q6 PRN PRN Reason: Pain, moderate (4-7) Last Admin: 05/19/17 08:53 Dose: 650 mg Albuterol/Ipratropium (Duoneb 3 Mg/0.5 Mg (3 Ml) Ud) 3 ml INH RQ6 [facility] Last Admin: 05/24/17 08:01 Dose: Not Given Albuterol/Ipratropium (Duoneb 3 Mg/0.5 Mg (3 Ml) Ud) 3 ml INH RQ6 PRN PRN Reason: Shortness of Breath Amitriptyline HCl (Elavil) 25 mg PO HS [facility] Last Admin: 05/23/17 21:46 Dose: 25 mg Atorvastatin Calcium (Lipitor) 20 mg PO DAILY [facility] Last Admin: 05/24/17 10:00 Dose: 20 mg Cholestyramine Resin (Questran) 4 gm PO TID [facility] Last Admin: 05/24/17 09:59 Dose: 4 gm Ferrous Sulfate (Feosol) 325 mg PO TID [facility] Last Admin: 05/24/17 09:59 Dose: 325 mg Folic Acid (Folic Acid) 1 mg PO DAILY [facility] Last Admin: 05/24/17 10:00 Dose: 1 mg Azithromycin 500 mg/ Sodium (Chloride) 250 mls @ 250 mls/hr IVPB DAILY [facility] Last Admin: 05/24/17 09:58 Dose: 250 mls/hr Piperacillin Sod/Tazobactam (Sod 2.25 gm/ Sodium Chloride) 100 mls @ 100 mls/ hr IVPB Q8 [facility] Last Admin: 05/24/17 09:56 Dose: 100 mls/hr Vancomycin HCl 750 mg/ Sodium (Chloride) 250 mls @ 166.667 mls/hr IVPB DAILY [facility] Last Admin: 05/24/17 09:57 Dose: 166.667 mls/hr Insulin Human Lispro (Humalog) 0 units SC ACHS [facility] PRN Reason: Protocol Last Admin: 05/24/17 08:20 Dose: Not Given Lactobacillus Acidophilus (Bacid Acidophilus) 1 cap PO BID [facility] Last Admin: 05/24/17 09:59 Dose: 1 cap Multivitamins/Minerals (Therapeutic-M Tab) 1 tab PO DAILY [facility] Last Admin: 05/24/17 09:59 Dose: 1 tab Oxycodone/Acetaminophen (Percocet 5/325 Mg Tab) 1 tab PO Q4 PRN PRN Reason: Pain, moderate (4-7) Stop: 05/25/17 22:34 Last Admin: 05/23/17 21:44 Dose: 1 tab Oxycodone/Acetaminophen (Percocet 5/325 Mg Tab) 2 tab PO Q4 PRN PRN Reason: Pain, severe (8-10) Stop: 05/25/17 22:35 Promethazine HCl/Dextromethorphan (Phenergan Dm Syrup) 10 ml PO Q6 PRN PRN Reason: Cough Last Admin: 05/22/17 10:27 Dose: 10 ml - Labs Labs: - Constitutional Appears: No Acute Distress - Head Exam Head Exam: ATRAUMATIC - Eye Exam Eye Exam: EOMI, PERRL - ENT Exam ENT Exam: Normal Oropharynx - Respiratory Exam Respiratory Exam: NORMAL BREATHING PATTERN Additional comments: good breath sounds b/l no wheezing - Cardiovascular Exam Cardiovascular Exam: RRR, +S1, +S2 - GI/Abdominal Exam GI & Abdominal Exam: Soft, Normal Bowel Sounds Additional comments: NT, ND - Extremities Exam Extremities Exam: Normal Inspection - Neurological Exam Neurological Exam: Alert, Awake, Oriented x3 - Additional Findings Additional findings: Laboratory Results - last 72 hr 05/18/17 05/18/17 05/19/17 20:58 20:58 13:30 Sodium Potassium Chloride Carbon Dioxide Anion Gap BUN Creatinine Est GFR ( Amer) Est GFR (Non-Af Amer) POC Glucose (mg/dL) Random Glucose Calcium Total Protein (PEP) Albumin (PEP) Pebxh-9-Sqbltqofm Pknko-4-Quvrftvrq Fzzr-3-Uthcpmth Lvfe-9-Frehqbgp Gamma Globulins Abnorm Protein Band 1 Abnorm Protein Band 2 Abnorm Protein Band 3 Folate JEANNINE & SPEP Interp Serum Immunofixation JONATHAN Screen Negative ANCA Screen Negative c-ANCA Titer TNP Proteinase 3 (PR3) <1.0 <1.0 p-ANCA Titer TNP Atypical p-ANCA Titer TNP Myeloperoxidase Ab <1.0 <1.0 Double Strand DNA Ab 1 Glomerular Base Mem IgG <1.0 Mycoplasma pneumon IgG Mycoplasma pneumon IgM 05/19/17 05/20/17 05/20/17 13:30 08:30 10:20 Sodium Potassium Chloride Carbon Dioxide Anion Gap BUN Creatinine Est GFR ( Amer) Est GFR (Non-Af Amer) POC Glucose (mg/dL) Random Glucose Calcium Total Protein (PEP) 6.0 L Albumin (PEP) 2.7 L Obnjg-2-Tctymrikd 0.6 H Exyqy-6-Hdtegfutm 1.0 H Ypha-3-Duuspqky 0.3 L Asgt-6-Rngfjmbt 0.5 Gamma Globulins 0.9 Abnorm Protein Band 1 TEST NOT PERFORMED Abnorm Protein Band 2 TEST NOT PERFORMED Abnorm Protein Band 3 TEST NOT PERFORMED Folate 17.6 JEANNINE & SPEP Interp See note Serum Immunofixation Not detected JONATHAN Screen ANCA Screen c-ANCA Titer Proteinase 3 (PR3) p-ANCA Titer Atypical p-ANCA Titer Myeloperoxidase Ab Double Strand DNA Ab Glomerular Base Mem IgG Mycoplasma pneumon IgG 2.76 H Mycoplasma pneumon IgM 82 05/21/17 05/21/17 05/22/17 16:25 21:19 05:51 Sodium Potassium Chloride Carbon Dioxide Anion Gap BUN Creatinine Est GFR ( Amer) Est GFR (Non-Af Amer) POC Glucose (mg/dL) 226 H 259 H 147 H Random Glucose Calcium Total Protein (PEP) Albumin (PEP) Eebbl-6-Dyxpzgvsj Sahov-8-Qtzynahzb Awmm-7-Duviahid Skfh-1-Dnqirndb Gamma Globulins Abnorm Protein Band 1 Abnorm Protein Band 2 Abnorm Protein Band 3 Folate JEANNINE & SPEP Interp Serum Immunofixation JONATHAN Screen ANCA Screen c-ANCA Titer Proteinase 3 (PR3) p-ANCA Titer Atypical p-ANCA Titer Myeloperoxidase Ab Double Strand DNA Ab Glomerular Base Mem IgG Mycoplasma pneumon IgG Mycoplasma pneumon IgM 05/22/17 05/22/17 05/22/17 12:01 16:09 21:30 Sodium Potassium Chloride Carbon Dioxide Anion Gap BUN Creatinine Est GFR ( Amer) Est GFR (Non-Af Amer) POC Glucose (mg/dL) 232 H 127 H 249 H Random Glucose Calcium Total Protein (PEP) Albumin (PEP) Egndz-9-Fuctyater Rwult-0-Ypjkhgjmj Lgqm-0-Snaeibzs Jbnt-6-Zmloqlwh Gamma Globulins Abnorm Protein Band 1 Abnorm Protein Band 2 Abnorm Protein Band 3 Folate JEANNINE & SPEP Interp Serum Immunofixation JONATHAN Screen ANCA Screen c-ANCA Titer Proteinase 3 (PR3) p-ANCA Titer Atypical p-ANCA Titer Myeloperoxidase Ab Double Strand DNA Ab Glomerular Base Mem IgG Mycoplasma pneumon IgG Mycoplasma pneumon IgM 05/23/17 05/23/17 05/23/17 05:55 16:12 21:28 Sodium Potassium Chloride Carbon Dioxide Anion Gap BUN Creatinine Est GFR ( Amer) Est GFR (Non-Af Amer) POC Glucose (mg/dL) 149 H 335 H 227 H Random Glucose Calcium Total Protein (PEP) Albumin (PEP) Edjyb-5-Nfbpziwan Yskvp-9-Kxihrimai Iyqh-9-Qaswgrtn Ttcr-4-Ytgvmubo Gamma Globulins Abnorm Protein Band 1 Abnorm Protein Band 2 Abnorm Protein Band 3 Folate JEANNINE & SPEP Interp Serum Immunofixation JONATHAN Screen ANCA Screen c-ANCA Titer Proteinase 3 (PR3) p-ANCA Titer Atypical p-ANCA Titer Myeloperoxidase Ab Double Strand DNA Ab Glomerular Base Mem IgG Mycoplasma pneumon IgG Mycoplasma pneumon IgM 05/24/17 05/24/17 05/24/17 05:59 11:00 11:40 Sodium 141 Potassium 3.8 Chloride 104 Carbon Dioxide 23 Anion Gap 18 BUN 10 Creatinine 0.8 Est GFR ( Amer) > 60 Est GFR (Non-Af Amer) > 60 POC Glucose (mg/dL) 144 H 221 H Random Glucose 213 H Calcium 8.9 Total Protein (PEP) Albumin (PEP) Epuqh-1-Rynbigqfp Iijey-0-Bkkhzkjme Gbtv-4-Pbsmxanp Qkqh-2-Prfnibys Gamma Globulins Abnorm Protein Band 1 Abnorm Protein Band 2 Abnorm Protein Band 3 Folate JEANNINE & SPEP Interp Serum Immunofixation JONATHAN Screen ANCA Screen c-ANCA Titer Proteinase 3 (PR3) p-ANCA Titer Atypical p-ANCA Titer Myeloperoxidase Ab Double Strand DNA Ab Glomerular Base Mem IgG Mycoplasma pneumon IgG Mycoplasma pneumon IgM Microbiology 05/19/17 17:20 Blood-Venous Blood Culture - Preliminary NO GROWTH AFTER 4 DAYS 05/18/17 17:00 Blood-Venous Blood Culture - Final NO GROWTH AFTER 5 DAYS 05/18/17 17:00 Blood-Venous Gram Stain - Final TEST NOT PERFORMED 05/18/17 16:45 Blood-Venous Blood Culture - Final NO GROWTH AFTER 5 DAYS 05/18/17 16:45 Blood-Venous Gram Stain - Final TEST NOT PERFORMED 05/22/17 08:59 Other: Please Indicate Mycobacterial Culture - Preliminary 05/20/17 11:00 Sputum Gram Stain - Final 05/20/17 11:00 Sputum Sputum Culture - Final NORMAL ORAL ASHTYN 05/19/17 11:00 Other: Please Indicate Mycobacterial Culture - Preliminary Accession No. : [id number] Patient Name / ID : SALAZAR COLLIER / [id number] Exam Date : 05/23/2017 13:38:37 ( Approved ) Study Comment : Sex / Age : M / 61Y Creator : Raoul Nunez MD Dictator : Raoul Nunez MD Operations Support Specialist : Talent Program Manager : Raoul Nunez MD Approver2 : Report Date : 05/23/2017 15:05:00 My Comment : PROCEDURE: CHEST RADIOGRAPH, 1 VIEW HISTORY: CAVITARY LUNG LESION COMPARISON: 05/21/2017 single-view chest. 05/18/2017 CT thorax. FINDINGS: LUNGS: Stable cavitary mass right middle lobe better visualized on the CT scan. PLEURA: No pneumothorax or pleural fluid seen. CARDIOVASCULAR: No radiographic findings to suggest acute or significant cardiovascular disease. OSSEOUS STRUCTURES: No significant abnormalities. VISUALIZED UPPER ABDOMEN: Normal. OTHER FINDINGS: None. IMPRESSION: No significant interval change compared to the prior examination(s). Assessment and Plan (1) Cavitary lesion of lung Status: Acute (2) Cough Status: Acute (3) Fever Status: Acute (4) Diabetes Status: Acute - Assessment and Plan (Free Text) Assessment: A/P- 61 year old male with DM II, HTN, admitted with productive cough, fever and found to have cavitary lung lesion in right middle lobe that's fluid filled as per report ready by radiologist and abscess vs neoplasms. remains afebrile normal wbc count blood cx- neg sputum cx- neg sputum AFB- neg x 2 Right middle lobe cavitary lesions again seen on cxr. c.diff- neg plan- advise to continue with IV zosyn day #7 continue with zithromax to cover for atypicals can be given po. continue with IV vancomycin keep trough <15. Airborne isolation till sputum AFB neg x 3. possible bronch for betetr evaluation of this cavitary RML lesion.
[2017-05-24 12:22] LABS: BLOOD UREA NITROGEN 10 mg/dl (9-20); CALCIUM 8.9 mg/dL (8.4-10.2); CARBON DIOXIDE 23 mmol/L (22-30); CHLORIDE 104 mmol/L (98-107); GFR AFRICAN-AMERICAN > 60; GLUCOSE,RANDOM 213 mg/dL (75-110); POTASSIUM 3.8 MMOL/L (3.6-5.0); SODIUM 141 mmol/l (132-148)
[2017-05-24] MEDS: Promethazine DM 12.5 mg-30 mg/10 ml Syrup PO PRN (21:39)
[2017-05-24] MEDS: Oxycodone/Acetaminophen 5/325 mg Tab PO PRN (21:42)
[2017-05-25] MEDS: Albuterol-Ipratrop 3 mg / 0.5 (3 ml) UD INH SCH ×4 (01:07→20:00)
--- NOTE | 2017-05-25 05:02 | PN ---
DATE: 05/24/2017 SUBJECTIVE: The patient is seen today, 05/24/2017. He still has pain on the right side of the chest. PHYSICAL EXAMINATION: VITAL SIGNS: Blood pressure is 132/75, temperature 98.0, respiratory rate 20, and pulse 67. HEENT: Pupils are equal and reactive to light. Normal-appearing mucosa of the conjunctivae, oropharynx, and nasal membrane mucosa. NECK: Supple. No JVD. No carotid bruits. No lymph nodes. No thyromegaly. CHEST AND LUNGS: Bilateral symmetrical expansion. Good air exchange. No rales. No rhonchi. CARDIOVASCULAR SYSTEM: PMI not localized. S1 and S2. No additional sounds. ABDOMEN: Normoactive bowel sounds. No tenderness. No organomegaly. No masses. EXTREMITIES: No cyanosis, no clubbing, no edema. STRAP SEWER: Alert, awake and oriented x3. No neurological deficits could be appreciated. ASSESSMENT: 1. Right lung cavitary lesion with pneumonia with surrounding infiltration. 2. Status post acute renal failure. 3. Type 2 diabetes mellitus. 4. Hypertension. PLAN: Continue current IV antibiotics. Follow up land inspector's recommendations. The patient is agreeable for bronchoscopy. Joceline Mendosa MD
[2017-05-25] MEDS: Insulin Lispro (humaLOG) 100 Units/ml Inj SC SCH ×4 (06:35→22:00)
--- NOTE | 2017-05-25 08:22 | PN ---
DATE: 05/23/2017 DAILY PROGRESS NOTE SUBJECTIVE: He is not in any cardiopulmonary distress. The patient has less pain on the right mid lung zone. PHYSICAL EXAMINATION: VITAL SIGNS: Blood pressure 130/80, temperature 98.2, respiratory rate 18, and pulse is 90. HEENT: Pupils equal and reactive to light. Normal appearing mucosa of the conjunctiva, oropharyngeal, and nasal membrane mucosa. NECK: Supple. No JVD. No carotid bruit. No lymph node. No thyromegaly. CHEST AND LUNGS: Bilateral symmetrical expansion with good air exchange. No rales. No rhonchi. CARDIOVASCULAR SYSTEM: PMI not localized. S1 and S2. No additional sounds. ABDOMEN: Normoactive bowel sounds. No tenderness. No organomegaly. No masses. EXTREMITIES: No cyanosis. No clubbing. No edema. CENTRAL NERVOUS SYSTEM: Alert, awake, and oriented x2. No neurological deficits could be appreciated. ASSESSMENT: Right lung cavitary lesion status post acute kidney injury, type 2 diabetes mellitus, hypertension. PLAN: Continue current IV antibiotics and follow recommendations of the ID as well as top lift nailer. Follow up to rule out TB. Joceline Mendosa MD
[2017-05-25] MEDS: Lactobacillus Acidophilus 500 MU Cap PO SCH ×2 (08:24→17:36)
[2017-05-25] MEDS: Cholestyramine 4 gm/Pkt UD PO SCH ×3 (08:27→17:35)
[2017-05-25] MEDS: Multivitamin With Minerals Tab PO SCH (08:28)
--- NOTE | 2017-05-25 11:19 | CP.PCM.PN ---
Subjective - Date & Time of Evaluation Date of Evaluation: 05/25/17 Time of Evaluation: 11:22 - Subjective Subjective: CHEST PAINS LESS NO SOB COUGH LESS NOW AGREES FOR BRONCHOSCOPIC EVALUATION OF AIRWAYS RESPIRATORY ISOLATION D/JAKOB Objective - Vital Signs/Intake and Output Vital Signs (last 24 hours): Temp Pulse Resp BP Pulse Ox 98.3 F 68 20 124/76 98 05/25/17 08:18 05/25/17 08:18 05/25/17 08:18 05/25/17 08:18 05/25/17 08:18 - Medications Medications: Current Medications Acetaminophen (Tylenol 325mg Tab) 650 mg PO Q6 PRN PRN Reason: Pain, moderate (4-7) Last Admin: 05/19/17 08:53 Dose: 650 mg Albuterol/Ipratropium (Duoneb 3 Mg/0.5 Mg (3 Ml) Ud) 3 ml INH RQ6 [facility] Last Admin: 05/25/17 07:51 Dose: Not Given Albuterol/Ipratropium (Duoneb 3 Mg/0.5 Mg (3 Ml) Ud) 3 ml INH RQ6 PRN PRN Reason: Shortness of Breath Amitriptyline HCl (Elavil) 25 mg PO HS [facility] Last Admin: 05/24/17 21:37 Dose: 25 mg Atorvastatin Calcium (Lipitor) 20 mg PO DAILY [facility] Last Admin: 05/25/17 08:28 Dose: 20 mg Azithromycin (Zithromax) 500 mg PO DAILY [facility] Last Admin: 05/25/17 08:28 Dose: 500 mg Cholestyramine Resin (Questran) 4 gm PO TID [facility] Last Admin: 05/25/17 08:27 Dose: 4 gm Ferrous Sulfate (Feosol) 325 mg PO TID [facility] Last Admin: 05/25/17 08:27 Dose: 325 mg Folic Acid (Folic Acid) 1 mg PO DAILY [facility] Last Admin: 05/25/17 08:27 Dose: 1 mg Piperacillin Sod/Tazobactam (Sod 2.25 gm/ Sodium Chloride) 100 mls @ 100 mls/ hr IVPB Q8 [facility] Last Admin: 05/25/17 08:26 Dose: 100 mls/hr Vancomycin HCl 750 mg/ Sodium (Chloride) 250 mls @ 166.667 mls/hr IVPB DAILY [facility] Last Admin: 05/25/17 08:25 Dose: 166.667 mls/hr Insulin Human Lispro (Humalog) 0 units SC ACHS [facility] PRN Reason: Protocol Last Admin: 05/25/17 06:35 Dose: Not Given Lactobacillus Acidophilus (Bacid Acidophilus) 1 cap PO BID [facility] Last Admin: 05/25/17 08:24 Dose: 1 cap Multivitamins/Minerals (Therapeutic-M Tab) 1 tab PO DAILY [facility] Last Admin: 05/25/17 08:28 Dose: 1 tab Oxycodone/Acetaminophen (Percocet 5/325 Mg Tab) 1 tab PO Q4 PRN PRN Reason: Pain, moderate (4-7) Stop: 05/25/17 22:34 Last Admin: 05/24/17 21:42 Dose: 1 tab Oxycodone/Acetaminophen (Percocet 5/325 Mg Tab) 2 tab PO Q4 PRN PRN Reason: Pain, severe (8-10) Stop: 05/25/17 22:35 Promethazine HCl/Dextromethorphan (Phenergan Dm Syrup) 10 ml PO Q6 PRN PRN Reason: Cough Last Admin: 05/24/17 21:39 Dose: 10 ml - Labs Labs: 05/21/17 05:50 05/24/17 11:40 - Constitutional Appears: No Acute Distress - Head Exam Head Exam: ATRAUMATIC, NORMAL INSPECTION, NORMOCEPHALIC - Eye Exam Eye Exam: EOMI, Normal appearance, PERRL Pupil Exam: NORMAL ACCOMODATION, PERRL - ENT Exam ENT Exam: Mucous Membranes Moist, Normal Exam - Neck Exam Neck Exam: Full ROM, Normal Inspection. absent: Lymphadenopathy - Respiratory Exam Respiratory Exam: Clear to Ausculation Bilateral, NORMAL BREATHING PATTERN - Cardiovascular Exam Cardiovascular Exam: REGULAR RHYTHM, +S1, +S2. absent: Murmur - GI/Abdominal Exam GI & Abdominal Exam: Soft, Normal Bowel Sounds. absent: Tenderness - Rectal Exam Rectal Exam: NORMAL INSPECTION - Extremities Exam Extremities Exam: Full ROM, Normal Capillary Refill, Normal Inspection. absent : Joint Swelling, Pedal Edema - Back Exam Back Exam: NORMAL INSPECTION - Neurological Exam Neurological Exam: Alert, Awake, CN II-XII Intact, Normal Gait, Oriented x3 - Psychiatric Exam Psychiatric exam: Normal Affect, Normal Mood - Skin Skin Exam: Dry, Intact, Normal Color, Warm Assessment and Plan - Assessment and Plan (Free Text) Assessment: CAVITARY LUNG LESION--?ETIOLOGY Plan: SCHEDULE BRONCHOSCOPY WITH BX ON 05/28/17 AT 8.45 AM PROCEDURE,INDICATION,RISKS AND BENEFITS DISCUSSED WITH PT AND HE UNDERSTANDS.
[2017-05-25] MEDS: Oxycodone/Acetaminophen 5/325 mg Tab PO PRN (21:50)
[2017-05-26] MEDS: Albuterol-Ipratrop 3 mg / 0.5 (3 ml) UD INH SCH ×4 (00:59→19:19)
[2017-05-26] MEDS: Insulin Lispro (humaLOG) 100 Units/ml Inj SC SCH ×4 (06:56→21:43)
[2017-05-26] MEDS: Cholestyramine 4 gm/Pkt UD PO SCH ×3 (08:51→16:24)
[2017-05-26] MEDS: Multivitamin With Minerals Tab PO SCH (08:51)
[2017-05-26] MEDS: Lactobacillus Acidophilus 500 MU Cap PO SCH ×2 (09:02→16:24)
[2017-05-27] MEDS: Insulin Lispro (humaLOG) 100 Units/ml Inj SC SCH ×4 (06:54→22:49)
[2017-05-27 08:07] LABS: BLOOD UREA NITROGEN 11 mg/dl (9-20); CALCIUM 8.7 mg/dL (8.4-10.2); CARBON DIOXIDE 20 mmol/L (22-30); CHLORIDE 108 mmol/L (98-107); GFR AFRICAN-AMERICAN > 60; GLUCOSE,RANDOM 126 mg/dL (75-110); POTASSIUM 4.7 MMOL/L (3.6-5.0); SODIUM 143 mmol/l (132-148)
[2017-05-27 08:09] LABS: PARTIAL THROMBOPLASTIN TIME 33.4 Seconds (25.6-37.1)
[2017-05-27 08:26] LABS: BASO # 0.1 K/uL (0.0-0.2); BASO % 1.8 % (0.0-2.0); EOS # 0.1 K/uL (0.0-0.7); HEMATOCRIT 28.8 % (35.0-51.0); LYMPH % 21.7 % (20.0-40.0); MEAN CELL VOLUME 97.8 fl (80.0-94.0); MEAN CORPUSCULAR HEMOGLOBIN 32.2 pg (27.0-31.0); MEAN CORPUSCULAR HGB CONC 32.9 g/dL (33.0-37.0); MEAN PLATELET VOLUME 8.5 fl (7.2-11.7); MONO # 0.4 K/uL (0.0-0.8); MONO % 9.2 % (0.0-10.0); NEUT # 3.1 K/uL (1.8-7.0); NEUT % 65.3 % (50.0-75.0); NRBC % 0.3 % (0.0-0.0); RED CELL DISTRIBUTION WIDTH 13.4 % (11.5-14.5); WHITE BLOOD COUNT 4.7 K/uL (4.8-10.8)
[2017-05-27] MEDS: Lactobacillus Acidophilus 500 MU Cap PO SCH ×2 (09:41→16:16)
[2017-05-27] MEDS: Multivitamin With Minerals Tab PO SCH (09:42)
[2017-05-27] MEDS: Cholestyramine 4 gm/Pkt UD PO SCH ×3 (09:42→16:16)
--- NOTE | 2017-05-27 10:59 | CP.PCM.PN ---
Subjective - Date & Time of Evaluation Date of Evaluation: 05/27/17 Time of Evaluation: 10:59 - Subjective Subjective: FEELS BETTER NO ACUTE DISTRESS COUGH AND SOB IMPROVED Objective - Vital Signs/Intake and Output Vital Signs (last 24 hours): Temp Pulse Resp BP Pulse Ox 97.9 F 52 L 18 123/76 97 05/27/17 07:41 05/27/17 07:41 05/27/17 07:41 05/27/17 07:41 05/27/17 07:41 - Medications Medications: Current Medications Acetaminophen (Tylenol 325mg Tab) 650 mg PO Q6 PRN PRN Reason: Pain, moderate (4-7) Last Admin: 05/19/17 08:53 Dose: 650 mg Amitriptyline HCl (Elavil) 25 mg PO HS [facility] Last Admin: 05/26/17 21:42 Dose: 25 mg Atorvastatin Calcium (Lipitor) 20 mg PO DAILY [facility] Last Admin: 05/27/17 09:42 Dose: 20 mg Azithromycin (Zithromax) 500 mg PO DAILY [facility] Last Admin: 05/27/17 09:42 Dose: 500 mg Cholestyramine Resin (Questran) 4 gm PO TID [facility] Last Admin: 05/27/17 09:42 Dose: 4 gm Ferrous Sulfate (Feosol) 325 mg PO TID [facility] Last Admin: 05/27/17 09:42 Dose: 325 mg Folic Acid (Folic Acid) 1 mg PO DAILY [facility] Last Admin: 05/27/17 09:42 Dose: 1 mg Piperacillin Sod/Tazobactam (Sod 2.25 gm/ Sodium Chloride) 100 mls @ 100 mls/ hr IVPB Q8 [facility] Last Admin: 05/27/17 09:41 Dose: 100 mls/hr Vancomycin HCl 750 mg/ Sodium (Chloride) 250 mls @ 166.667 mls/hr IVPB DAILY [facility] Last Admin: 05/27/17 10:44 Dose: 166.667 mls/hr Insulin Human Lispro (Humalog) 0 units SC ACHS [facility] PRN Reason: Protocol Last Admin: 05/27/17 06:54 Dose: Not Given Lactobacillus Acidophilus (Bacid Acidophilus) 1 cap PO BID [facility] Last Admin: 05/27/17 09:41 Dose: 1 cap Multivitamins/Minerals (Therapeutic-M Tab) 1 tab PO DAILY [facility] Last Admin: 05/27/17 09:42 Dose: 1 tab Promethazine HCl/Dextromethorphan (Phenergan Dm Syrup) 10 ml PO Q6 PRN PRN Reason: Cough Last Admin: 05/24/17 21:39 Dose: 10 ml - Labs Labs: 05/27/17 06:30 05/27/17 06:30 PT 14.3 Seconds (9.8-13.1) H 05/27/17 06:30 INR 1.4 (0.9-1.2) H 05/27/17 06:30 APTT 33.4 Seconds (25.6-37.1) 05/27/17 06:30 - Constitutional Appears: No Acute Distress - Head Exam Head Exam: ATRAUMATIC, NORMAL INSPECTION, NORMOCEPHALIC - Eye Exam Eye Exam: EOMI, Normal appearance, PERRL Pupil Exam: NORMAL ACCOMODATION, PERRL - ENT Exam ENT Exam: Mucous Membranes Moist, Normal Exam - Neck Exam Neck Exam: Full ROM, Normal Inspection. absent: Lymphadenopathy - Respiratory Exam Respiratory Exam: Clear to Ausculation Bilateral, NORMAL BREATHING PATTERN - Cardiovascular Exam Cardiovascular Exam: REGULAR RHYTHM, +S1, +S2. absent: Murmur - GI/Abdominal Exam GI & Abdominal Exam: Soft, Normal Bowel Sounds. absent: Tenderness - Rectal Exam Rectal Exam: NORMAL INSPECTION - Extremities Exam Extremities Exam: Full ROM, Normal Capillary Refill, Normal Inspection. absent : Joint Swelling, Pedal Edema - Back Exam Back Exam: NORMAL INSPECTION - Neurological Exam Neurological Exam: Alert, Awake, CN II-XII Intact, Normal Gait, Oriented x3 - Psychiatric Exam Psychiatric exam: Normal Affect, Normal Mood - Skin Skin Exam: Dry, Intact, Normal Color, Warm Assessment and Plan - Assessment and Plan (Free Text) Assessment: CAVITARY PULM DZ Plan: BRONCHOSCOPY WITH BX IN AM
[2017-05-28] MEDS: Insulin Lispro (humaLOG) 100 Units/ml Inj SC SCH ×4 (07:30→21:32)
[2017-05-28] MEDS ORDERED: Lidocaine 1% Inj (20ml) ONE (07:39)
[2017-05-28] MEDS ORDERED: Sodium Chloride 0.9% 0 ML IV ONE (07:39)
[2017-05-28] MEDS ORDERED: EPINEPHrine 1 mg/ml (1:1000) Inj ONE (07:39)
--- NOTE | 2017-05-28 08:18 | PN ---
DAILY PROGRESS NOTE DATE: 05/26/2017 SUBJECTIVE: The patient is seen today on 05/26/2017. He is not in any cardiopulmonary distress and decreased pain on the right side of the chest. PHYSICAL EXAMINATION: VITAL SIGNS: Blood pressure is 143/74, temperature is 98.5, respiratory rate is 19, and pulse is 58. HEENT: Pupils are equal and reactive to light. Normal appearing mucosa of the conjunctivae, oropharynx and nasal membrane mucosa. NECK: Supple. No JVD. No carotid bruits. No lymph node. No thyromegaly. CHEST AND LUNGS: Bilateral symmetrical expansion. Good air exchange. No rales and no rhonchi. CARDIOVASCULAR SYSTEM: PMI not localized. S1 and S2. No additional sounds. ABDOMEN: Normoactive bowel sounds. No tenderness. No organomegaly. No masses. EXTREMITIES: No cyanosis. No clubbing. No edema. CENTRAL NERVOUS SYSTEM: Alert, awake, and oriented x3. No neurological deficit could be appreciated. ASSESSMENT: 1. Right middle lung cavity with pulmonary infiltrate. AFB smear type free is negative. 2. Type II diabetes mellitus. 3. Status post acute kidney injury. PLAN: Continue IV antibiotics and the patient is for bronchoscopy by Dr. Cortez on Sunday. Joceline Mendosa MD
[2017-05-28] MEDS ORDERED: Midazolam 2 MG/2 ML VIAL ONE (08:53)
[2017-05-28] MEDS ORDERED: Propofol 10 mg/ml Inj (20 ML) ONE (08:53)
[2017-05-28] MEDS ORDERED: Lidocaine 2% MPF (5 ml) Inj ONE (08:53)
[2017-05-28] MEDS ORDERED: Sodium Chloride 0.9% 250 ML IV ONE (08:55)
[2017-05-28] MEDS: Cholestyramine 4 gm/Pkt UD PO SCH ×3 (09:00→18:22)
[2017-05-28] MEDS: Lactobacillus Acidophilus 500 MU Cap PO SCH ×2 (09:00→18:20)
[2017-05-28] MEDS ORDERED: Lidocaine 2% Jelly (5 ml) TOP ONE (09:02)
[2017-05-28] MEDS ORDERED: Lidocaine 1% Inj (20ml) IJ ONE (09:02)
[2017-05-28] MEDS ORDERED: Vancomycin 750 mg Inj IVPB ONE (09:13)
--- NOTE | 2017-05-28 12:18 | RAD ---
PROCEDURE: CHEST RADIOGRAPH, 1 VIEW. Technique: Single view portable semi erect @ 09:45 HISTORY: post bronchoscopy COMPARISON: 05/23/2017 FINDINGS: LUNGS: Substantial decrease in size of the cavitary mass identified on prior studies. PLEURA: No pneumothorax or pleural fluid seen. CARDIOVASCULAR: Normal. OSSEOUS STRUCTURES: No significant abnormalities. VISUALIZED UPPER ABDOMEN: Normal. OTHER FINDINGS: None. IMPRESSION: No adverse findings following bronchoscopy. Marked decrease in the complex, cavitary mass right lower lobe.
[2017-05-28] MEDS: Multivitamin With Minerals Tab PO SCH (13:21)
[2017-05-28] MEDS: Promethazine DM 12.5 mg-30 mg/10 ml Syrup PO PRN ×2 (14:15→21:35)
--- NOTE | 2017-05-28 17:51 | PROCN ---
DATE: PROCEDURE: Fiberoptic bronchoscopy with transbronchial biopsies, washes and brushings. INDICATION: Cavitary right lung lesion. PROCEDURE DETAILS: The procedure was done in the endoscopic suite under aseptic conditions after anesthetizing the patient's upper airway with 1% Xylocaine solution. The patient also received IV sedation via anesthesia. The bronchoscope was inserted via the right nostril to the vocal cord which appeared completely unremarkable. The entire tracheobronchial tree appeared normal with no endobronchial lesions. Washings, brushings and transbronchial biopsies were taken from the right lower lobe and right middle lobe transbronchial segments were sent for analysis. The patient tolerated the procedure well. She was sent to the recovery room postop in good condition. IMPRESSION: Cavitary lung lesion, right lung, probably representing a lung abscess. PLAN: Await the biopsy results, if biopsies are non-revealing, then serial chest x-rays and CT of the chest would be indicated as an outpatient to follow the progress of pulmonary lesion for further evaluation. Luis A Cortez MD
[2017-05-28] MEDS: Sodium Chloride 0.9% 1,000 ML IV SCH (21:35)
--- NOTE | 2017-05-29 01:23 | PN ---
DATE: 05/28/2017 SUBJECTIVE: The patient is seen today, 05/28/2017. He is status post bronchoscopy. PHYSICAL EXAMINATION: VITAL SIGNS: Blood pressure is 108/75, temperature 97.2, respiratory rate 20 and pulse 100. HEENT: Pupils equal and reactive to light. Normal-appearing mucosa of the conjunctivae, oropharynx, and nasal membrane mucosa. NECK: Supple. No JVD. No carotid bruits. No lymph node. No thyromegaly. CHEST AND LUNGS: Bilateral symmetrical expansion. Good air exchange. No rales. No rhonchi. CARDIOVASCULAR SYSTEM: PMI not localized. S1 and S2. No additional sounds. ABDOMEN: Normoactive bowel sounds. No tenderness. No organomegaly. No masses. EXTREMITIES: No cyanosis. No clubbing. No edema. CENTRAL NERVOUS SYSTEM: Alert, awake, and oriented x2 and no neurological deficit could be appreciated. ASSESSMENT: 1. Right mid lung cavitary lesion with surrounding pulmonary infiltration and pneumonia. 2. Status post acute kidney injury. 3. Type 2 diabetes mellitus. 4. Hypertension. PLAN: Follow ID and Pulmonary recommendation regarding the IV antibiotics. Follow the pathology of the biopsies done by fish filleter today. Joceline Mendosa MD
[2017-05-29] MEDS: Lactobacillus Acidophilus 500 MU Cap PO SCH ×2 (08:25→16:14)
[2017-05-29] MEDS: Cholestyramine 4 gm/Pkt UD PO SCH ×3 (08:27→16:15)
[2017-05-29] MEDS: Insulin Lispro (humaLOG) 100 Units/ml Inj SC SCH ×4 (08:27→22:05)
[2017-05-29] MEDS: Multivitamin With Minerals Tab PO SCH (08:28)
[2017-05-29] MEDS: Sodium Chloride 0.9% 1,000 ML IV SCH (08:31)
--- NOTE | 2017-05-29 09:59 | CP.PCM.PN ---
Subjective - Date & Time of Evaluation Date of Evaluation: 05/29/17 Time of Evaluation: 09:59 - Subjective Subjective: NO NEW COMPLAINTS/FINDINGS PATH REPORT FROM BRONCHOSCOPY PENDING CXR-DRAMATIC REDUCTION OF SIZE OF LUNG CAVITY WILL CONTINUE PRESENT RX AWAIT PATH REPORT Objective - Vital Signs/Intake and Output Vital Signs (last 24 hours): Temp Pulse Resp BP Pulse Ox 98.1 F 69 19 130/80 97 05/29/17 08:05 05/29/17 08:05 05/29/17 08:05 05/29/17 08:05 05/29/17 08:05 Intake and Output: 05/29/17 05/29/17 06:59 18:59 Intake Total 100 Balance 100 - Medications Medications: Current Medications Acetaminophen (Tylenol 325mg Tab) 650 mg PO Q6 PRN PRN Reason: Pain, moderate (4-7) Last Admin: 05/19/17 08:53 Dose: 650 mg Amitriptyline HCl (Elavil) 25 mg PO HS [facility] Last Admin: 05/28/17 21:28 Dose: 25 mg Atorvastatin Calcium (Lipitor) 20 mg PO DAILY [facility] Last Admin: 05/29/17 08:27 Dose: 20 mg Azithromycin (Zithromax) 500 mg PO DAILY [facility] Last Admin: 05/29/17 08:28 Dose: 500 mg Cholestyramine Resin (Questran) 4 gm PO TID [facility] Last Admin: 05/29/17 08:27 Dose: 4 gm Ferrous Sulfate (Feosol) 325 mg PO TID [facility] Last Admin: 05/29/17 08:26 Dose: 325 mg Folic Acid (Folic Acid) 1 mg PO DAILY [facility] Last Admin: 05/29/17 08:26 Dose: 1 mg Piperacillin Sod/Tazobactam (Sod 2.25 gm/ Sodium Chloride) 100 mls @ 100 mls/ hr IVPB Q8 [facility] Last Admin: 05/29/17 08:28 Dose: 100 mls/hr Sodium Chloride (Sodium Chloride 0.9%) 1,000 mls @ 100 mls/hr IV .Q10H [facility] Last Admin: 05/29/17 08:31 Dose: 100 mls/hr Vancomycin HCl 750 mg/ Sodium (Chloride) 250 mls @ 166.667 mls/hr IVPB DAILY [facility] Last Admin: 05/29/17 09:35 Dose: 166.667 mls/hr Insulin Human Lispro (Humalog) 0 units SC ACHS [facility] PRN Reason: Protocol Last Admin: 05/29/17 08:27 Dose: 2 units Lactobacillus Acidophilus (Bacid Acidophilus) 1 cap PO BID [facility] Last Admin: 05/29/17 08:25 Dose: 1 cap Multivitamins/Minerals (Therapeutic-M Tab) 1 tab PO DAILY [facility] Last Admin: 05/29/17 08:28 Dose: 1 tab Promethazine HCl/Dextromethorphan (Phenergan Dm Syrup) 10 ml PO Q6 PRN PRN Reason: Cough Last Admin: 05/28/17 21:35 Dose: 10 ml - Labs Labs: 05/27/17 06:30 05/27/17 06:30 PT 14.3 Seconds (9.8-13.1) H 05/27/17 06:30 INR 1.4 (0.9-1.2) H 05/27/17 06:30 APTT 33.4 Seconds (25.6-37.1) 05/27/17 06:30
[2017-05-29] MEDS: Promethazine DM 12.5 mg-30 mg/10 ml Syrup PO PRN (21:18)
--- NOTE | 2017-05-30 02:43 | PN ---
DATE: 05/29/2017 SUBJECTIVE: The patient is seen today 05/29/2017. He is not in any cardiopulmonary distress and decreased pain on the right side. A repeated chest x-ray showed decreased cavitary lesion on the right side of the lung. PHYSICAL EXAMINATION: VITAL SIGNS: Blood pressure 120/80, temperature 98.0, respiratory rate 19 and pulse 74. HEENT: Pupils equal and reactive to light. Normal appearing mucosa of the conjunctivae, oropharynx and nasal membrane mucosa. NECK: Supple. No JVD. No carotid bruit. No lymph node. No thyromegaly. CHEST AND LUNGS: Bilateral symmetrical expansion. Good air exchange. No rales. No rhonchi. CARDIOVASCULAR SYSTEM: PMI not localized. S1 and S2. No additional sounds. ABDOMEN: Normoactive bowel sounds. No tenderness. No organomegaly. No masses. EXTREMITIES: No cyanosis. No clubbing. No edema. CENTRAL NERVOUS SYSTEM: Alert, awake, and oriented x3. No neurological deficits could be appreciated. ASSESSMENT: 1. Right lung cavitary lesion with surrounding pneumonia. 2. Status post acute kidney injury. PLAN: Continue current IV antibiotics as per Infectious disease and plan to discharge to Transitional Care Unit for completion of IV antibiotic course. Joceline Mendosa MD
[2017-05-30] MEDS: Insulin Lispro (humaLOG) 100 Units/ml Inj SC SCH ×3 (06:48→16:09)
[2017-05-30 07:41] VITALS: BP 123/77; PULSE 58; RESP 18; TEMP 98; O2SAT 98
[2017-05-30] MEDS: Cholestyramine 4 gm/Pkt UD PO SCH ×3 (09:01→16:21)
[2017-05-30] MEDS: Lactobacillus Acidophilus 500 MU Cap PO SCH ×2 (09:01→16:21)
[2017-05-30] MEDS: Multivitamin With Minerals Tab PO SCH (09:01)
--- NOTE | 2017-05-30 11:41 | CP.PCM.PN ---
Subjective - Date & Time of Evaluation Date of Evaluation: 05/30/17 Time of Evaluation: 12:00 - Subjective Subjective: ID Note- Pt. seen and examiend today. pt. s/p bronchoscopy the other day, awaiting results. Pt. states he feels better. denies any fever or chills, denies any cough. pt. states eh prefers to stay here to complete his abx regimen rather than go home and come daily for IV abx. Objective - Vital Signs/Intake and Output Vital Signs (last 24 hours): Temp Pulse Resp BP Pulse Ox 98.0 F 58 L 18 123/77 98 05/30/17 07:40 05/30/17 07:40 05/30/17 07:40 05/30/17 07:40 05/30/17 07:40 - Medications Medications: Current Medications Acetaminophen (Tylenol 325mg Tab) 650 mg PO Q6 PRN PRN Reason: Pain, moderate (4-7) Last Admin: 05/19/17 08:53 Dose: 650 mg Amitriptyline HCl (Elavil) 25 mg PO HS [facility] Last Admin: 05/29/17 21:17 Dose: 25 mg Atorvastatin Calcium (Lipitor) 20 mg PO DAILY [facility] Last Admin: 05/30/17 09:03 Dose: 20 mg Azithromycin (Zithromax) 500 mg PO DAILY [facility] Last Admin: 05/30/17 09:02 Dose: 500 mg Cholestyramine Resin (Questran) 4 gm PO TID [facility] Last Admin: 05/30/17 09:01 Dose: 4 gm Ferrous Sulfate (Feosol) 325 mg PO TID [facility] Last Admin: 05/30/17 09:01 Dose: 325 mg Folic Acid (Folic Acid) 1 mg PO DAILY [facility] Last Admin: 05/30/17 09:01 Dose: 1 mg Piperacillin Sod/Tazobactam (Sod 2.25 gm/ Sodium Chloride) 100 mls @ 100 mls/ hr IVPB Q8 [facility] Last Admin: 05/30/17 09:01 Dose: 100 mls/hr Vancomycin HCl 750 mg/ Sodium (Chloride) 250 mls @ 166.667 mls/hr IVPB DAILY [facility] Last Admin: 05/30/17 09:02 Dose: 166.667 mls/hr Insulin Human Lispro (Humalog) 0 units SC ACHS [facility] PRN Reason: Protocol Last Admin: 05/30/17 06:48 Dose: Not Given Lactobacillus Acidophilus (Bacid Acidophilus) 1 cap PO BID [facility] Last Admin: 05/30/17 09:01 Dose: 1 cap Multivitamins/Minerals (Therapeutic-M Tab) 1 tab PO DAILY [facility] Last Admin: 05/30/17 09:01 Dose: 1 tab Promethazine HCl/Dextromethorphan (Phenergan Dm Syrup) 10 ml PO Q6 PRN PRN Reason: Cough Last Admin: 05/29/17 21:18 Dose: 10 ml - Labs Labs: - Additional Findings Additional findings: - Constitutional Appears: No Acute Distress - Head Exam Head Exam: ATRAUMATIC - Eye Exam Eye Exam: EOMI, PERRL - ENT Exam ENT Exam: Normal Oropharynx - Respiratory Exam Respiratory Exam: NORMAL BREATHING PATTERN Additional comments: good breath sounds b/l no wheezing - Cardiovascular Exam Cardiovascular Exam: RRR, +S1, +S2 - GI/Abdominal Exam GI & Abdominal Exam: Soft, Normal Bowel Sounds Additional comments: NT, ND - Extremities Exam Extremities Exam: Normal Inspection - Neurological Exam Neurological Exam: Alert, Awake, Oriented x 3 Laboratory Results - last 72 hr 05/27/17 05/27/17 05/28/17 15:34 22:03 05:55 POC Glucose (mg/dL) 176 H 177 H 127 H 05/28/17 05/28/17 05/28/17 09:27 10:56 16:03 POC Glucose (mg/dL) 149 H 140 H 240 H 05/28/17 05/29/17 05/29/17 21:29 05:30 16:18 POC Glucose (mg/dL) 304 H 152 H 199 H 05/29/17 05/30/17 21:48 06:07 POC Glucose (mg/dL) 216 H 107 Microbiology 05/22/17 08:59 Other: Please Indicate Mycobacterial Culture - Preliminary 05/19/17 11:00 Other: Please Indicate Mycobacterial Culture - Preliminary 05/19/17 17:20 Blood-Venous Blood Culture - Final NO GROWTH AFTER 5 DAYS 05/19/17 17:20 Blood-Venous Gram Stain - Final TEST NOT PERFORMED 05/23/17 12:51 Other: Please Indicate Mycobacterial Culture - Preliminary 05/18/17 17:00 Blood-Venous Blood Culture - Final NO GROWTH AFTER 5 DAYS 05/18/17 17:00 Blood-Venous Gram Stain - Final TEST NOT PERFORMED 05/18/17 16:45 Blood-Venous Blood Culture - Final NO GROWTH AFTER 5 DAYS 05/18/17 16:45 Blood-Venous Gram Stain - Final TEST NOT PERFORMED 05/20/17 11:00 Sputum Gram Stain - Final 05/20/17 11:00 Sputum Sputum Culture - Final NORMAL ORAL ASHTYN Accession No. : [id number] Patient Name / ID : SALAZAR Barnard / [id number] Exam Date : 05/28/2017 09:47:48 ( Approved ) Study Comment : Sex / Age : M / 61Y Creator : Raoul Hernandez MD Dictator : Raoul Hernnadez MD Site Lead : School Physical Therapist : Raoul Hernandez MD Approver2 : Report Date : 05/28/2017 12:17:08 My Comment : PROCEDURE: CHEST RADIOGRAPH, 1 VIEW. Technique: Single view portable semi erect @ 09:45 HISTORY: post bronchoscopy COMPARISON: 05/23/2017 FINDINGS: LUNGS: Substantial decrease in size of the cavitary mass identified on prior studies. PLEURA: No pneumothorax or pleural fluid seen. CARDIOVASCULAR: Normal. OSSEOUS STRUCTURES: No significant abnormalities. VISUALIZED UPPER ABDOMEN: Normal. OTHER FINDINGS: None. IMPRESSION: No adverse findings following bronchoscopy. Marked decrease in the complex, cavitary mass right lower lobe. Assessment and Plan (1) Cavitary lesion of lung Status: Acute (2) Cough Status: Acute (3) Fever Status: Acute (4) Diabetes Status: Acute - Assessment and Plan (Free Text) Assessment: A/P- 61 year old male with DM II, HTN, admitted with productive cough, fever and found to have cavitary lung lesion in right middle lobe that's fluid filled as per report ready by radiologist and abscess vs neoplasms. s/p bronch 2 days ago remains afebrile normal wbc count blood cx- neg sputum cx- neg sputum AFB- neg x 3 Right middle lobe cavitary lesions still present but much smaller in size plan- has completed 10 days of IV zosyn has completed 8 days of zithromax. continue with IV vancomycin day #8 keep trough <15. await bronch results. since pt. has responded well to IV abx and the cavitary lesion has decreased in sizy would advise to continue with IV abx to complete total of 14 days. if patient is being d/c and coming daily for IV abx then I would advise to male vancomyicn 1 gram daily and d/c zosyn and place on cefepime 2 gram daily for another 5 days. keep vanco trough <5. however if patient can stay in hospital another 4 days to complete total of his 14 days IV abx therpay then continue with zosyna dn vanco as is now. d/c zithromax today. pt. to f/u with primer charger for his bronch results. all above d/w patient and d/w [employer] mark.
[2017-05-30] MEDS ORDERED: Cefepime 2 GM in Sodium Chloride 0.9% 100 ML IVPB ONE (14:30)
--- NOTE | 2017-05-30 14:33 | CP.PCM.PCO ---
Assessment/Plan - Assessment/Plan Assessment (Free Text): Pt stable, seen and cleared for d/c by Dr. Mendosa and all consultants. Pt to get 5 more days of IV abx, Vanco and Cefepime daily per Dr. Molina. Rx given to Beatrice TOMAS. Pt willing to come back to hospital daily for IV abx infusion. Pt to f/u with Dr. Mendosa in 1 week
--- NOTE | 2017-05-31 17:23 | DS ---
REASON FOR ADMISSION: This is a 61 years old male with history of multiple medical problems, who was admitted for right lung cavitary lesion and acute renal failure. COURSE OF HOSPITALIZATION: The patient was admitted to medical floor and he was started on conventional antibiotics. The patient was kept in respiratory isolation to rule out TB. The patient had pulmonary consultation done by Dr. Cortez and ID consultation done by Dr. Molina. The patient underwent bronchoscopy and biopsies were done. The patient's repeated chest x-ray showed decrease of the cavitary lesion on conventional antibiotics and the patient was discharged to continue vancomycin IV as well as cefepime IV as an outpatient through the same-day surgery as well as emergency room for 5 more days as per ID recommendations. FINAL DIAGNOSES: 1. Right lung cavitary lesion with pneumonia. 2. Acute renal failure that resolved. 3. Type 2 diabetes mellitus. 4. Hypertension. Camacho MD Deondre
== END 2017-05-30 16:44 | disposition home or self-care (01) | DRG 194 ==
LOC: H.ER 15:39 → H.ERHOLD 17:22 → H.TEL 23:16 → H.MEDSURG1 05-25 18:31
PROVIDERS: ADMIT Internal Medicine; ATTEND Internal Medicine
PROC: 3E0F7GC Introduction of Other Therapeutic Substance into Respiratory Tract, Via Natural or Artificial Opening (ICD-10-PCS; 2017-05-19)
PROC: 0BDD8ZX Extraction of Right Middle Lung Lobe, Via Natural or Artificial Opening Endoscopic, Diagnostic (ICD-10-PCS; 2017-05-28)
PROC: 0BDF8ZX Extraction of Right Lower Lung Lobe, Via Natural or Artificial Opening Endoscopic, Diagnostic (ICD-10-PCS; principal; 2017-05-28 08:45)
DX: J18.9 Pneumonia, unspecified organism (principal); R91.1 Solitary pulmonary nodule; N17.9 Acute kidney failure, unspecified; E11.9 Type 2 diabetes mellitus without complications; I10 Essential (primary) hypertension; D64.9 Anemia, unspecified; F17.210 Nicotine dependence, cigarettes, uncomplicated; E78.00 Pure hypercholesterolemia, unspecified; J45.909 Unspecified asthma, uncomplicated

== ENCOUNTER 2018-03-02 15:34 | Inpatient (IN) | payer MEDICARE, OTHER ==
[2018-03-02 15:34] VITALS: BMI 25.8
[2018-03-02] MEDS ORDERED: Sodium Chloride 0.9% 1,000 ML IV STA ×3 (15:54→19:38)
[2018-03-02 16:19] LABS: VENOUS BLOOD GAS BASE EXCESS -23.2 mmol/L (0.0-2.0); VENOUS BLOOD GAS PCO2 11 mmHg (40-60); VENOUS BLOOD GAS PO2 32 mm/Hg (30-55); VENOUS BLOOD PH 7.14 (7.32-7.43)
--- NOTE | 2018-03-02 16:19 | RAD ---
HISTORY: weakness COMPARISON: Chest radiograph dated 05/28/2017. FINDINGS: LUNGS: No active pulmonary disease. PLEURA: No significant pleural effusion identified, no pneumothorax apparent. CARDIOVASCULAR: Atherosclerotic aortic calcifications. Cardiomediastinal silhouette within normal limits. OSSEOUS STRUCTURES: Unchanged. VISUALIZED UPPER ABDOMEN: Normal. OTHER FINDINGS: None. IMPRESSION: No active disease.
--- NOTE | 2018-03-02 16:39 | ED PDOC ---
HPI: General Adult Time Seen by Provider: 03/02/18 15:42 Chief Complaint (Nursing): Abnormal Labs Chief Complaint (Provider): Weakness and low blood sugar Onset/Duration Of Symptoms: Hrs (prior to arrival) Additional Complaint(s): Juan Pizarro is a 62 y/o man with past medical history of diabetes, HTN, asthma, and chronic neck pain, who was brought into the ED via EMS due to weakness and low blood sugar. Patient reports that he was walking and suddenly felt light headed prompting him to ask police to call an ambulance. His blood sugar was found to be 40 and in the field was given IV dextrose making him feel a little better. He states he hasn't really had an appetite since his last meal at 20:00 last night. He also states that he still took his regular diabetes medicine as prescribed today. He denies any nausea, vomiting, diarrhea , constipation, fever or chills. He also reports that he has chronic neck pain and notes that he fell yesterday and believes that may have exacerbated his neck pain. PMD: Summer Bills Past Medical History Reviewed: Historical Data, Nursing Documentation, Vital Signs Vital Signs: Last Vital Signs Temp 98.3 F 03/03/18 12:00 Pulse 78 03/03/18 13:00 Resp 16 03/03/18 13:00 BP 120/71 03/03/18 13:00 Pulse Ox 98 03/03/18 15:50 - Medical History PMH: Arthritis, Asthma, Back Problems, Diabetes, HTN, Hypercholesterolemia, Pneumonia Denies: Anemia, Chronic Kidney Disease - Surgical History Surgical History: Appendectomy Other surgeries: hand, knee, and neck surgeries - Family History Family History: States: Unknown Family Hx - Social History Ex-Smoker (has not smoked in the last 12 months): Yes Alcohol: None Drugs: Denies - Immunization History Hx Tetanus Toxoid Vaccination: No Hx Influenza Vaccination: Yes Hx Pneumococcal Vaccination: No - Home Medications Home Medications: Ambulatory Orders Medication Instructions Recorded GlipiZIDE [Glucotrol] 5 mg PO DAILY 09/21/15 Folic Acid 1 mg PO DAILY 05/18/17 Multivitamin [Multi-Vitamin Daily] 1 tab PO DAILY 05/18/17 Rosuvastatin Calcium [Crestor] 10 mg PO DAILY 05/18/17 - Allergies Allergies/Adverse Reactions: Allergies Allergy/AdvReac Type Severity Reaction Status Date / Time No Known Allergies Allergy Verified 11/20/16 14:19 Review of Systems ROS Statement: Except As Marked, All Systems Reviewed And Found Negative (as per HPI otherwise negative) Constitutional: Positive for: Weakness. Negative for: Fever, Chills Gastrointestinal: Negative for: Nausea, Vomiting, Diarrhea, Constipation Musculoskeletal: Positive for: Neck Pain Physical Exam - Reviewed Nursing Documentation Reviewed: Yes Vital Signs Reviewed: Yes - Physical Exam Appears: Positive for: No Acute Distress (somewhat dissheveled) Head Exam: Positive for: ATRAUMATIC, NORMOCEPHALIC Skin: Positive for: Warm, Dry Eye Exam: Positive for: EOMI, PERRL ENT: Positive for: Pharynx Is (clear), Other (dry mucous membranes) Neck: Positive for: Painless ROM, Supple Cardiovascular/Chest: Positive for: Regular Rate, Rhythm. Negative for: Murmur Respiratory: Positive for: Rhonchi. Negative for: Accessory Muscle Use, Respiratory Distress Gastrointestinal/Abdominal: Positive for: Soft. Negative for: Tenderness Back: Positive for: Normal Inspection. Negative for: Decreased ROM Extremity: Positive for: Normal ROM. Negative for: Deformity Lymphatic: Negative for: Adenopathy Neurologic/Psych: Positive for: Alert, Oriented (x3), Other (slightly slurred speech). Negative for: Motor/Sensory Deficits - Laboratory Results Result Diagrams: 03/03/18 04:31 03/03/18 04:31 - ECG O2 Sat by Pulse Oximetry: 98 (RA) Pulse Ox Interpretation: Normal - Critical Care Total Time (In Min): 30 Documented Critical Care: Time excludes all time spent performint seperately billable procedures Medical Decision Making Medical Decision Making: Time: 15:53 Initial Impression: Weakness Differential diagnosis including but not limited to hypoglycemia, dehydration, viral syndrome, acute coronary syndrome, and electrolyte abnormality Initial Plan: --Type and Screen --VBG --EKG --Alcohol serum --BNP --CMP --Magnesium --Phosphorous --Troponin I --PTT --CBC with differential On arrival pt hypotensive, aggresive IV fluid hydration ordered. Also encouraged oral hydration and nutrition. However, pt reports severe lack of appetite. Peaked T waves Time: 18:30 CXR FINDINGS: LUNGS: No active pulmonary disease. PLEURA: No significant pleural effusion identified, no pneumothorax apparent. CARDIOVASCULAR: Atherosclerotic aortic calcifications. Cardiomediastinal silhouette within normal limits. OSSEOUS STRUCTURES: Unchanged. VISUALIZED UPPER ABDOMEN: Normal. OTHER FINDINGS: None. IMPRESSION: No active disease. VBG and ABG demonstrate acidosis. Markedly deranged electrolytes: acute renal failure with hyperkalemia, metabolic acidosis. Pancytopenia. Aggressive hyperkalemia management with IV D50/insulin, albuterol, calcium gluconate, sodium bicarb. KAYLIN Woodward Nephrology rhinestone setter. orders placed as per discussion KAYLIN Shelley Hospitalist for ICU [facility]. KAYLIN pt findings and plan of care. Scribe Attestation: Documented by Aden Vincent, acting as a scribe for Mary Pride MD. Provider Scribe Attestation: All medical record entries made by the Scribe were at my direction and personally dictated by me. I have reviewed the chart and agree that the record accurately reflects my personal performance of the history, physical exam, medical decision making, and the department course for this patient. I have also personally directed, reviewed, and agree with the discharge instructions and disposition. Disposition - Clinical Impression Clinical Impression: Acute renal insufficiency, Hyperkalemia, Hypoglycemia Counseled Patient/Family Regarding: Studies Performed, Diagnosis - Disposition Disposition Time: 20:00 Condition: CRITICAL - Pt Status Changed To: Hospital Disposition Of: Inpatient - Admit Certification Admit to Inpatient:: After my assessment, the patient will require hospitalization for at least two midnights. This is because of the severity of symptoms shown, intensity of services needed, and/or the medical risk in this patient being treated as an outpatient. - POA Present On Arrival: None
[2018-03-02 17:03] LABS: INR 1.8 (0.9-1.2); PARTIAL THROMBOPLASTIN TIME 66.1 Seconds (25.6-37.1); PROTHROMBIN TIME 20.4 Seconds (9.8-13.1)
[2018-03-02 17:06] LABS: ABG ALLEN TEST YES; ARTERIAL BLOOD GAS HCO3 10.2 mmol/L (21-28); ARTERIAL BLOOD GAS O2 SAT 99.8 % (95-98); ARTERIAL BLOOD GAS PCO2 24 mm/Hg (35-45); ARTERIAL BLOOD GAS PH 7.15 (7.35-7.45); ARTERIAL BLOOD GAS PO2 104 mm/Hg (80-100); ARTERIAL BLOOD GAS TCO2 9.1 mmol/L (22-28)
[2018-03-02 17:34] LABS: BASO % 0.1 % (0.0-2.0); EOS % 0.1 % (0.0-4.0); HEMOGLOBIN 11.6 g/dL (12.0-18.0); LYMPH # 0.6 K/uL (1.0-4.3); LYMPH % 13.3 % (20.0-40.0); MEAN CELL VOLUME 97.7 fl (80.0-94.0); MEAN CORPUSCULAR HEMOGLOBIN 32.6 pg (27.0-31.0); MEAN CORPUSCULAR HGB CONC 33.4 g/dL (33.0-37.0); MEAN PLATELET VOLUME 9.7 fl (7.2-11.7); MONO # 0.3 K/uL (0.0-0.8); MONO % 6.9 % (0.0-10.0); NEUT # 3.5 K/uL (1.8-7.0); NEUT % 79.6 % (50.0-75.0); RBC 3.56 Mil/uL (4.40-5.90); RED CELL DISTRIBUTION WIDTH 13.7 % (11.5-14.5); WHITE BLOOD COUNT 4.4 K/uL (4.8-10.8)
[2018-03-02 17:51] LABS: B-TYPE NATRIURETIC PEPTIDE 245 pg/ml (0-900)
[2018-03-02 18:34] LABS: ALB/GLOB RATIO 1.5 (1.0-2.1); ALBUMIN 4.6 g/dL (3.5-5.0); ALT/SGPT 50 U/L (21-72); AST/SGOT 33 U/L (17-59)
[2018-03-02 18:49] LABS: BLOOD UREA NITROGEN 111 mg/dl (9-20)
[2018-03-02] MEDS ORDERED: Sod Polystyrene Sulf 15 gm/60 ml Susp PO ONE (18:50)
[2018-03-02] MEDS ORDERED: Insulin Regular 100 units/ml IVP STA (18:51)
[2018-03-02] MEDS ORDERED: Dextrose 50% SYRINGE Inj (50 ml) IVP ONE (18:51)
[2018-03-02] MEDS ORDERED: Albuterol 0.083% Inhal Sol (2.5 mg/3 mL) UD IH STA (18:51)
[2018-03-02 19:12] LABS: GFR AFRICAN-AMERICAN 3; GFR NON-AFRICAN AMERICAN 2
[2018-03-02] MEDS ORDERED: Sodium Bicarbonate 7.5% (0.9 MEQ/ML) 50ML INJ IV STA ×2 (19:23→21:14)
[2018-03-02] MEDS ORDERED: Albuterol-Ipratrop 3 mg / 0.5 (3 ml) UD ONE (19:32)
[2018-03-02] MEDS ORDERED: Dextrose 50% SYRINGE Inj (50 ml) ONE (19:32)
[2018-03-02] MEDS ORDERED: Sod Polystyrene Sulf 15 gm/60 ml Susp ONE (19:33)
[2018-03-02] MEDS ORDERED: Albuterol 0.083% Inhal Sol (2.5 mg/3 mL) UD ONE (19:48)
--- NOTE | 2018-03-02 20:58 | CP.PCM.CON ---
History of Present Illness - History of Present Illness History of Present Illness: Attending:Evon Caldera PMD: Summer Bills MD Reason for consult: Critical care management Chief Complaint: lightheadedness/weakness The patient was seen and evaluated in the ED HPI: The hx was obtained from the patient and after review of the medical records. He is a 62 years old male with hx of DM II, HTN, chronic back pain and has been drinking alcohol until last PM. He was brought to the ED via the EMS because of weakness and severe lightheadedness where he thought that he was about to black out. An ambulance was called and his blood glucose was found to be 40mg/dl. He was given IV dextrose and began feeling better. He referred nausea, mild SOB, pain to the right back. he did fall one day prior to this admission but did not hit his head but suffered some pain to the back of his neck. PMH: Arthritis, Child ruiz Asthma, Cervical Radiculopathy, DM II, HTN, HLD; Pneumonia; Cavitary Lung lesion treated 05/30/17; CKD PSH: Appendectomy; ORIF fractured right wrist; Knee surgery; Neck surgery with placement of piece of metal SH: Former Smoker; Uses Alcohol often; No illegal drug use; Live alone; unemployed FH: States: Unknown Family Hx Allergies: NKDA Medication: Reviewed Review of Systems - Constitutional Constitutional: absent: Chills, Fatigue, Fever, Headache - EENT Eyes: Requires Corrective Lenses, Sees Flashes. absent: Diplopia, Floaters Ears: absent: Decreased Hearing, Ear Discharge, Tinnitus Nose/Mouth/Throat: absent: Epistaxis, Nasal Congestion, Nasal Discharge, Dental Pain, Dry Mouth - Cardiovascular Cardiovascular: Dyspnea. absent: Chest Pain, Edema, Palpitations - Respiratory Respiratory: Dyspnea. absent: Cough, Wheezing, Stridor, Chest Congestion - Gastrointestinal Gastrointestinal: Nausea. absent: Abdominal Pain, Constipation, Diarrhea, Vomiting - Musculoskeletal Musculoskeletal: Back Pain, Neck Pain. absent: Joint Swelling, Muscle Weakness - Integumentary Integumentary: absent: Pruritus, Rash, Skin Ulcer, Sores, Striae, Swelling - Neurological Neurological: Dizziness, Weakness. absent: Confusion, Focal Weakness, Headaches - Psychiatric Psychiatric: absent: Anxiety, Depression, Panic Attacks - Endocrine Endocrine: Polyuria. absent: Palpitations, Polydipsia, Polyphagia - Hematologic/Lymphatic Hematologic: absent: Easy Bleeding, Easy Bruising Past Patient History - Past Medical History & Family History Past Medical History?: Yes - Past Social History Smoking Status: Former Smoker Chewing Tobacco Use: No Cigar Use: No Alcohol: Occasional Drugs: Denies Home Situation {Lives}: Alone - CARDIAC Hx Hypercholesterolemia: Yes Hx Hypertension: Yes - PULMONARY Hx Asthma: Yes Hx Pneumonia: Yes - NEUROLOGICAL Hx Neurological Disorder: No - HEENT Hx HEENT Problems: Yes Other/Comment: Use Eyeglasses - RENAL Hx Chronic Kidney Disease: Yes - ENDOCRINE/METABOLIC Hx Endocrine Disorders: Yes Hx Diabetes Mellitus Type 2: Yes - HEMATOLOGICAL/ONCOLOGICAL Hx Anemia: No - INTEGUMENTARY Hx Dermatological Problems: No - MUSCULOSKELETAL/RHEUMATOLOGICAL Hx Arthritis: Yes - GASTROINTESTINAL Hx Gastrointestinal Disorders: No - GENITOURINARY/GYNECOLOGICAL Hx Genitourinary Disorders: No - PSYCHIATRIC Hx Psychophysiologic Disorder: No Hx Emotional Abuse: No Hx Physical Abuse: No Hx Substance Use: No - SURGICAL HISTORY Hx Appendectomy: Yes Other/Comment: ORIF right wrist; Cervical spine surgery/ Knee surgery - ANESTHESIA Hx Anesthesia: Yes Hx Anesthesia Reactions: No Hx Malignant Hyperthermia: No Meds Allergies/Adverse Reactions: Allergies Allergy/AdvReac Type Severity Reaction Status Date / Time No Known Allergies Allergy Verified 11/20/16 14:19 Physical Exam - Constitutional Appears: No Acute Distress - Head Exam Head Exam: ATRAUMATIC, NORMAL INSPECTION, NORMOCEPHALIC - Eye Exam Eye Exam: EOMI, Normal appearance Pupil Exam: NORMAL ACCOMODATION, PERRL - ENT Exam ENT Exam: Mucous Membranes Dry, Normal Exam, Normal External Ear Exam - Neck Exam Neck exam: Positive for: Full Rom, Normal Inspection. Negative for: Lymphadenopathy, Tenderness - Respiratory Exam Respiratory Exam: Clear to Auscultation Bilateral. absent: Rales, Rhonchi, Wheezes - Cardiovascular Exam Cardiovascular Exam: REGULAR RHYTHM, RRR, +S1, +S2. absent: Gallop, JVD - GI/Abdominal Exam GI & Abdominal Exam: Normal Bowel Sounds, Soft. absent: Mass, Organomegaly, Tenderness - Rectal Exam Rectal Exam: Deferred - Extremities Exam Extremities exam: Positive for: full ROM, normal inspection. Negative for: calf tenderness, pedal edema - Back Exam Back exam: NORMAL INSPECTION. absent: CVA tenderness (L), CVA tenderness (R) - Neurological Exam Neurological exam: Alert, CN II-XII Intact, Oriented x3, Reflexes Normal - Psychiatric Exam Psychiatric exam: Normal Affect, Normal Mood - Skin Skin Exam: Dry, Intact, Normal Color, Warm Results - Vital Signs Recent Vital Signs: Last Vital Signs Temp 96 F L 03/02/18 15:37 Pulse 75 03/02/18 19:52 Resp 16 03/02/18 19:52 BP 114/66 03/02/18 19:52 Pulse Ox 100 03/02/18 19:52 - Labs Result Diagrams: 03/02/18 17:13 03/02/18 17:13 Labs: Laboratory Results - last 24 hr 03/02/18 03/02/18 03/02/18 15:42 16:00 16:27 WBC RBC Hgb Hct MCV MCH MCHC RDW Plt Count MPV Neut % (Auto) Lymph % (Auto) [place] % (Auto) Eos % (Auto) Baso % (Auto) Neut # (Auto) Lymph # (Auto) [place] # (Auto) Eos # (Auto) Baso # (Auto) Neutrophils % (Manual) Band Neutrophils % Lymphocytes % (Manual) Reactive Lymphs % Monocytes % (Manual) Eosinophils % (Manual) Basophils % (Manual) Metamyelocytes % Myelocytes % Promyelocytes % Blast Cells % Plasma Cell % (Manual) Nucleated RBC % Hypersegmented Polys Smudge Cells Toxic Granulation Dohle Bodies Rey Rods Platelet Estimate Plt Clumps, EDTA Large Platelets Giant Platelets RBC Morphology Polychromasia Hypochromasia (manual) Poikilocytosis (manual Basophilic Stippling Anisocytosis (manual) Microcytosis (manual) Macrocytosis (manual) Spherocytes Sickle Cells Target Cells Tear Drop Cells Ovalocytes Stomatocytes Helmet Cells [place] Bodies Gretchen Cells Acanthocytes (Spur) Rouleaux Schistocytes PT INR APTT pCO2 pO2 32 HCO3 ABG pH ABG Total CO2 ABG O2 Saturation ABG Base Excess Lew Test ABG Potassium VBG pH 7.14 L* VBG pCO2 11 L* VBG HCO3 6.5 VBG Total CO2 4.0 L VBG O2 Sat (Calc) 57.0 VBG Base Excess -23.2 L VBG Potassium 1.2 L* A-a O2 Difference Sodium 147.0 Cancelled Chloride 129.0 H Cancelled Glucose 58 L Lactate 1.2 FiO2 21.0 Blood Gas Comments Vbg Crit Value Called To Natalie andrade r.n. Crit Value Called By Deandra Crit Value Read Back Y Blood Gas Notified Time 1619 Potassium Cancelled Carbon Dioxide Cancelled Anion Gap Cancelled BUN Cancelled Creatinine Cancelled Est GFR ( Amer) Cancelled Est GFR (Non-Af Amer) Cancelled POC Glucose (mg/dL) 163 H Random Glucose Cancelled Calcium Cancelled Phosphorus Cancelled Magnesium Cancelled Total Bilirubin Cancelled AST Cancelled ALT Cancelled Alkaline Phosphatase Cancelled Total Creatine Kinase Troponin I Cancelled NT-Pro-B Natriuret Pep Cancelled Total Protein Cancelled Albumin Cancelled Globulin Cancelled Albumin/Globulin Ratio Cancelled Arterial Blood Potassium Venous Blood Potassium 1.2 L* Alcohol, Quantitative Cancelled Blood Type Blood Type Confirm Antibody Screen BBK History Checked 03/02/18 03/02/18 03/02/18 16:27 16:27 16:27 WBC Cancelled RBC Cancelled Hgb Cancelled Hct Cancelled MCV Cancelled MCH Cancelled MCHC Cancelled RDW Cancelled Plt Count Cancelled MPV Cancelled Neut % (Auto) Cancelled Lymph % (Auto) Cancelled Twiggs % (Auto) Cancelled Eos % (Auto) Cancelled Baso % (Auto) Cancelled Neut # (Auto) Cancelled Lymph # (Auto) Cancelled [place] # (Auto) Cancelled Eos # (Auto) Cancelled Baso # (Auto) Cancelled Neutrophils % (Manual) Cancelled Band Neutrophils % Cancelled Lymphocytes % (Manual) Cancelled Reactive Lymphs % Cancelled Monocytes % (Manual) Cancelled Eosinophils % (Manual) Cancelled Basophils % (Manual) Cancelled Metamyelocytes % Cancelled Myelocytes % Cancelled Promyelocytes % Cancelled Blast Cells % Cancelled Plasma Cell % (Manual) Cancelled Nucleated RBC % Cancelled Hypersegmented Polys Cancelled Smudge Cells Cancelled Toxic Granulation Cancelled Dohle Bodies Cancelled Rey Rods Cancelled Platelet Estimate Cancelled Plt Clumps, EDTA Cancelled Large Platelets Cancelled Giant Platelets Cancelled RBC Morphology Cancelled Polychromasia Cancelled Hypochromasia (manual) Cancelled Poikilocytosis (manual Cancelled Basophilic Stippling Cancelled Anisocytosis (manual) Cancelled Microcytosis (manual) Cancelled Macrocytosis (manual) Cancelled Spherocytes Cancelled Sickle Cells Cancelled Target Cells Cancelled Tear Drop Cells Cancelled Ovalocytes Cancelled Stomatocytes Cancelled Helmet Cells Cancelled [place] Bodies Cancelled Gretchen Cells Cancelled Acanthocytes (Spur) Cancelled Rouleaux Cancelled Schistocytes Cancelled PT 20.4 H INR 1.8 H APTT 66.1 H pCO2 pO2 HCO3 ABG pH ABG Total CO2 ABG O2 Saturation ABG Base Excess Lew Test ABG Potassium VBG pH VBG pCO2 VBG HCO3 VBG Total CO2 VBG O2 Sat (Calc) VBG Base Excess VBG Potassium A-a O2 Difference Sodium Chloride Glucose Lactate FiO2 Blood Gas Comments Crit Value Called To Crit Value Called By Crit Value Read Back Blood Gas Notified Time Potassium Carbon Dioxide Anion Gap BUN Creatinine Est GFR ( Amer) Est GFR (Non-Af Amer) POC Glucose (mg/dL) Random Glucose Calcium Phosphorus Magnesium Total Bilirubin AST ALT Alkaline Phosphatase Total Creatine Kinase Troponin I NT-Pro-B Natriuret Pep Total Protein Albumin Globulin Albumin/Globulin Ratio Arterial Blood Potassium Venous Blood Potassium Alcohol, Quantitative Blood Type A POSITIVE Blood Type Confirm Antibody Screen Negative BBK History Checked No verified bt 03/02/18 03/02/18 03/02/18 16:55 17:13 17:13 WBC 4.4 L RBC 3.56 L Hgb 11.6 L D Hct 34.8 L MCV 97.7 H MCH 32.6 H MCHC 33.4 RDW 13.7 Plt Count 96 L D MPV 9.7 Neut % (Auto) 79.6 H Lymph % (Auto) 13.3 L Twiggs % (Auto) 6.9 Eos % (Auto) 0.1 Baso % (Auto) 0.1 Neut # (Auto) 3.5 Lymph # (Auto) 0.6 L [place] # (Auto) 0.3 Eos # (Auto) 0.0 Baso # (Auto) 0.0 Neutrophils % (Manual) Band Neutrophils % Lymphocytes % (Manual) Reactive Lymphs % Monocytes % (Manual) Eosinophils % (Manual) Basophils % (Manual) Metamyelocytes % Myelocytes % Promyelocytes % Blast Cells % Plasma Cell % (Manual) Nucleated RBC % Hypersegmented Polys Smudge Cells Toxic Granulation Dohle Bodies Rey Rods Platelet Estimate Plt Clumps, EDTA Large Platelets Giant Platelets RBC Morphology Polychromasia Hypochromasia (manual) Poikilocytosis (manual Basophilic Stippling Anisocytosis (manual) Microcytosis (manual) Macrocytosis (manual) Spherocytes Sickle Cells Target Cells Tear Drop Cells Ovalocytes Stomatocytes Helmet Cells [place] Bodies [place] Cells Acanthocytes (Spur) Rouleaux Schistocytes PT INR APTT pCO2 24 L pO2 104 H HCO3 10.2 L ABG pH 7.15 L* ABG Total CO2 9.1 L ABG O2 Saturation 99.8 H ABG Base Excess -18.8 L Lew Test Yes ABG Potassium 5.9 H VBG pH VBG pCO2 VBG HCO3 VBG Total CO2 VBG O2 Sat (Calc) VBG Base Excess VBG Potassium A-a O2 Difference 16.0 Sodium 132.0 141 Chloride 97.0 L 101 Glucose 205 H Lactate 4.0 H* FiO2 21.0 Blood Gas Comments Ra21% Crit Value Called To Dr. sona rodriguez m.d Crit Value Called By Deandra Fine Value Read Back Y Blood Gas Notified Time 1705 Potassium 5.9 H Carbon Dioxide 7 L* D Anion Gap 39 H BUN 111 H* D Creatinine 21.6 H* Est GFR ( Amer) 3 Est GFR (Non-Af Amer) 2 POC Glucose (mg/dL) Random Glucose 188 H Calcium 8.0 L Phosphorus 13.8 H Magnesium 3.0 H Total Bilirubin 0.8 AST 33 ALT 50 Alkaline Phosphatase 84 Total Creatine Kinase 125 Troponin I < 0.0120 NT-Pro-B Natriuret Pep 245 Total Protein 7.7 Albumin 4.6 Globulin 3.1 Albumin/Globulin Ratio 1.5 Arterial Blood Potassium 5.9 H Venous Blood Potassium Alcohol, Quantitative 143 H Blood Type Blood Type Confirm Antibody Screen BBK History Checked 03/02/18 17:55 WBC RBC Hgb Hct MCV MCH MCHC RDW Plt Count MPV Neut % (Auto) Lymph % (Auto) [place] % (Auto) Eos % (Auto) Baso % (Auto) Neut # (Auto) Lymph # (Auto) [place] # (Auto) Eos # (Auto) Baso # (Auto) Neutrophils % (Manual) Band Neutrophils % Lymphocytes % (Manual) Reactive Lymphs % Monocytes % (Manual) Eosinophils % (Manual) Basophils % (Manual) Metamyelocytes % Myelocytes % Promyelocytes % Blast Cells % Plasma Cell % (Manual) Nucleated RBC % Hypersegmented Polys Smudge Cells Toxic Granulation Dohle Bodies Rey Rods Platelet Estimate Plt Clumps, EDTA Large Platelets Giant Platelets RBC Morphology Polychromasia Hypochromasia (manual) Poikilocytosis (manual Basophilic Stippling Anisocytosis (manual) Microcytosis (manual) Macrocytosis (manual) Spherocytes Sickle Cells Target Cells Tear Drop Cells Ovalocytes Stomatocytes Helmet Cells [place] Bodies [place] Cells Acanthocytes (Spur) Rouleaux Schistocytes PT INR APTT pCO2 pO2 HCO3 ABG pH ABG Total CO2 ABG O2 Saturation ABG Base Excess Lew Test ABG Potassium VBG pH VBG pCO2 VBG HCO3 VBG Total CO2 VBG O2 Sat (Calc) VBG Base Excess VBG Potassium A-a O2 Difference Sodium Chloride Glucose Lactate FiO2 Blood Gas Comments Crit Value Called To Crit Value Called By Crit Value Read Back Blood Gas Notified Time Potassium Carbon Dioxide Anion Gap BUN Creatinine Est GFR ( Amer) Est GFR (Non-Af Amer) POC Glucose (mg/dL) Random Glucose Calcium Phosphorus Magnesium Total Bilirubin AST ALT Alkaline Phosphatase Total Creatine Kinase Troponin I NT-Pro-B Natriuret Pep Total Protein Albumin Globulin Albumin/Globulin Ratio Arterial Blood Potassium Venous Blood Potassium Alcohol, Quantitative Blood Type Blood Type Confirm A POSITIVE Antibody Screen BBK History Checked - Impressions Impression: NSR 85/min with peaked T waves in the anterior leads - Imaging and Cardiology Chest x-ray Status: Image reviewed by me Additional comment: No active disease Assessment & Plan - Assessment and Plan (Free Text) Assessment: #. Acute on chronic kidney disease #. DM II with Hypoglycemia #. Hyperkalemia #. Metabolic Acidosis #. Coagulopathy #. Pancytopenia Plan: 62 years old male with hx of DM II, HTN, chronic back pain and has been drinking alcohol until last PM. brought to the ED via the EMS because of weakness and severe lightheadedness. His initial blood glucose was 40mg/dl. He was given IV dextrose. He referred nausea, mild SOB, pain to the right back. In the Ed his creatinine was 21. #. Acute on chronic kidney disease - Consult Dr Woodward nephrology - Renal US - IV Fluids; Patient received 2L in Ed continue with 375mls/hr - follow renal labs #. DM II with Hypoglycemia - Hold Glucotrol - IV Fluid with D5 - Regular Insulin sliding scale according to accucheck - HbA1c #. Hyperkalemia from the Renal failure and acidosis - Patient was given Calcium Gluconate, Sodium bicarbonate, Albuterol nebulizer and Kayexalate - Follow electrolytes #. Metabolic Acidosis - Sodium Bicarbonate, total of 89.2mEq given -Follow Blood Gas #. Coagulopathy with elevated INR and PTT probably due to Vitamin K deficiency/ poor intake and Alcohol abuse - Vitamin K PO - follow INR/PTT - Consider US of the liver #. Pancytopenia with Patelets and Hemoglobin much lower - Follow Vitamin B12/ folate as the MCV was elevated - Follow Hb and platelets #. Alcohol abuse - Banana bag which includes Thiamine, Folic acid and Multivitamin - Alcohol withdrawal precaution with a CIWA protocol #. Stress ulcer prophylaxis with Pantoprazole #. DVT Prophylaxois with SCD No Anticoagulant because the patient's INR/PTT are already elevated #Code Status: Full - Date & Time Date: 03/02/18 Time: 20:58
[2018-03-02] MEDS ORDERED: Multivitamin (MVI) 10 ML, Thiamine 100 MG, Folic Acid 1 MG in Sodium Chloride 0.9% 1,00... IV ONE (21:05)
[2018-03-02 21:16] LABS: SQUAMOUS EPITHIAL < 1 /hpf (0-5); URINE BILIRUBIN NEGATIVE (NEGATIVE); URINE BLOOD SMALL (NEGATIVE); URINE CLARITY CLEAR (Clear); URINE COLOR YELLOW (YELLOW); URINE GLUCOSE (UA) >=500 mg/dL (Normal); URINE LEUKOCYTE ESTERASE NEG Leu/uL (Negative); URINE PROTEIN 30 mg/dL (NEGATIVE); URINE UROBILINOGEN 0.2-1.0 mg/dL (0.2-1.0)
[2018-03-02] MEDS: Sodium Chloride 0.9% 1,000 ML IV SCH (22:12)
[2018-03-02 23:37] LABS: CALCIUM 8.4 mg/dL (8.4-10.2)
[2018-03-03] MEDS: Sodium Chloride 0.9% 1,000 ML IV SCH (02:25)
[2018-03-03] MEDS: Dextrose 5%/0.9% NS 1,000 ML IV SCH ×2 (02:27→06:00)
[2018-03-03 05:02] LABS: VENOUS BLOOD GAS BASE EXCESS -7.6 mmol/L (0.0-2.0); VENOUS BLOOD GAS PCO2 44 mmHg (40-60); VENOUS BLOOD GAS PO2 24 mm/Hg (30-55); VENOUS BLOOD PH 7.25 (7.32-7.43)
[2018-03-03 06:17] LABS: BLOOD UREA NITROGEN 97 mg/dl (9-20); CALCIUM 7.8 mg/dL (8.4-10.2); GFR AFRICAN-AMERICAN 5; GFR NON-AFRICAN AMERICAN 4
[2018-03-03 06:22] LABS: PARTIAL THROMBOPLASTIN TIME 26.7 Seconds (25.6-37.1); PROTHROMBIN TIME 10.9 Seconds (9.8-13.1)
[2018-03-03 06:25] LABS: HEMOGLOBIN 10.8 g/dL (12.0-18.0); MEAN CELL VOLUME 95.9 fl (80.0-94.0); MEAN CORPUSCULAR HEMOGLOBIN 33.3 pg (27.0-31.0); MEAN CORPUSCULAR HGB CONC 34.8 g/dL (33.0-37.0); RBC 3.23 Mil/uL (4.40-5.90); RED CELL DISTRIBUTION WIDTH 13.4 % (11.5-14.5)
[2018-03-03 06:31] LABS: WHITE BLOOD COUNT 2.7 K/uL (4.8-10.8)
[2018-03-03] MEDS ORDERED: Sodium Chloride 0.9% 1,000 ML IV SCH ×2 (07:15→19:15)
--- NOTE | 2018-03-03 08:11 | CP.PCM.PN ---
Subjective - Date & Time of Evaluation Date of Evaluation: 03/03/18 Time of Evaluation: 08:00 - Subjective Subjective: DISCUSSED WITH MED RESIDENT RENAL FUNCTION HAS IMPROVED OVER NIGHT BUN ,CREATININ , ACIDOSIS ALL IMPROVED URINE OUTPUT GOOD P: CHANGE IVF TO 1/2 NS AT 200 CC/H PAY ATTENTION TO DT REPEAT LABS IN THE AFTERNOON NO NEED FOR HD RENAL FUNCTION IS IMPROVING Objective - Vital Signs/Intake and Output Vital Signs (last 24 hours): Temp Pulse Resp BP Pulse Ox 97.8 F 58 L 12 108/56 L 98 03/03/18 04:00 03/03/18 07:00 03/03/18 07:00 03/03/18 07:00 03/03/18 07:00 Intake and Output: 03/03/18 03/03/18 06:59 18:59 Intake Total 2120 Output Total 1250 Balance 870 - Medications Medications: Current Medications Atorvastatin Calcium (Lipitor) 20 mg PO DAILY NICHOLE Folic Acid (Folic Acid) 1 mg PO DAILY NICHOLE Sodium Chloride (Sodium Chloride 0.9%) 1,000 mls @ 300 mls/hr IV .Q3H20M NICHOLE Stop: 03/04/18 07:07 Insulin Human Regular (Humulin R) 0 units SC ACHS NICHOLE PRN Reason: Protocol Lorazepam (Ativan) 1 mg IVP Q4 PRN PRN Reason: Agitation Last Admin: 03/03/18 02:36 Dose: 1 mg Multivitamins/Minerals (Therapeutic-M Tab) 1 tab PO DAILY NICHOLE Ondansetron HCl (Zofran Inj) 4 mg IVP Q4 PRN PRN Reason: Nausea/Vomiting Pantoprazole Sodium (Protonix Ec Tab) 40 mg PO DAILY NICHOLE Thiamine HCl (Vitamin B1 Tab) 100 mg PO DAILY NICHOLE - Labs Labs: 03/03/18 04:31 03/03/18 04:31 PT 10.9 Seconds (9.8-13.1) D 03/03/18 04:31 INR 1.0 (0.9-1.2) D 03/03/18 04:31 APTT 26.7 Seconds (25.6-37.1) D 03/03/18 04:31
[2018-03-03] MEDS: Pantoprazole 40 mg EC Tab PO SCH (08:25)
[2018-03-03] MEDS: Multivitamin With Minerals Tab PO SCH (08:26)
[2018-03-03] MEDS: Sodium Chloride 0.45% 1,000 ML IV SCH ×2 (08:35→13:49)
--- NOTE | 2018-03-03 09:00 | CP.PCM.CON ---
History of Present Illness - History of Present Illness History of Present Illness: 62 YOM came to ER as he fell and was feeling dizzy, in ER found to have low BS 42 and improved after IV glucose was given, he had no c/o headache, or vomiting. His labs were grossly abnormal with [employer] . 20, high K . He was given Kayexalate, IVF and repeated blood work this morning showing marked improvement. Pt has now good urine out put, he has no nausea / vomiting , he is eating, he has no SOB, his CXR was clear and renal US done this morning now showing any hydronephrosis Review of Systems - Constitutional Constitutional: Frequent Falls - EENT Eyes: As Per HPI Nose/Mouth/Throat: As Per HPI - Cardiovascular Cardiovascular: As Per HPI, Lightheadedness - Respiratory Respiratory: As Per HPI - Gastrointestinal Gastrointestinal: As Per HPI - Musculoskeletal Musculoskeletal: Back Pain - Neurological Neurological: As Per HPI Past Patient History - Past Medical History & Family History Past Medical History?: Yes - Past Social History Smoking Status: Former Smoker - CARDIAC Hx Hypercholesterolemia: Yes Hx Hypertension: Yes Other/Comment: Right Hand get numb from previous Injry to muscel tendon and bone. - PULMONARY Hx Asthma: No Hx Pneumonia: Yes (05/2017) - NEUROLOGICAL Hx Neurological Disorder: No - HEENT Hx HEENT Problems: Yes - RENAL Hx Chronic Kidney Disease: No - ENDOCRINE/METABOLIC Hx Endocrine Disorders: Yes - HEMATOLOGICAL/ONCOLOGICAL Hx Blood Disorders: No - INTEGUMENTARY Hx Dermatological Problems: No - MUSCULOSKELETAL/RHEUMATOLOGICAL Hx Arthritis: Yes (left knee) Hx Back Pain: No Hx Falls: No Hx Fractures: Yes (Right lower arm fracture with surgery) Other/Comment: Chipped bone and cartilages in right knee. - GASTROINTESTINAL Hx Gastrointestinal Disorders: No - GENITOURINARY/GYNECOLOGICAL Hx Genitourinary Disorders: No - PSYCHIATRIC Hx Psychophysiologic Disorder: No - SURGICAL HISTORY Hx Appendectomy: Yes Hx Tonsillectomy: Yes Other/Comment: ORIF right wrist; Cervical spine surgery/ Knee surgery - ANESTHESIA Hx Anesthesia: Yes Hx Anesthesia Reactions: No Hx Malignant Hyperthermia: No Has any member of the family had a problem w/ anesthesia?: No Meds Allergies/Adverse Reactions: Allergies Allergy/AdvReac Type Severity Reaction Status Date / Time No Known Allergies Allergy Verified 11/20/16 14:19 - Medications Medications: Current Medications Atorvastatin Calcium (Lipitor) 20 mg PO DAILY [facility] Last Admin: 03/03/18 08:25 Dose: 20 mg Folic Acid (Folic Acid) 1 mg PO DAILY [facility] Last Admin: 03/03/18 08:25 Dose: 1 mg Sodium Chloride (Sodium Chloride 0.45%) 1,000 mls @ 200 mls/hr IV .Q5H [facility] Stop: 03/04/18 08:13 Last Admin: 03/03/18 08:35 Dose: 200 mls/hr Insulin Human Regular (Humulin R) 0 units SC ACHS [facility] PRN Reason: Protocol Lorazepam (Ativan) 1 mg IVP Q4 PRN PRN Reason: Agitation Last Admin: 03/03/18 02:36 Dose: 1 mg Multivitamins/Minerals (Therapeutic-M Tab) 1 tab PO DAILY [facility] Last Admin: 03/03/18 08:26 Dose: 1 tab Ondansetron HCl (Zofran Inj) 4 mg IVP Q4 PRN PRN Reason: Nausea/Vomiting Pantoprazole Sodium (Protonix Ec Tab) 40 mg PO DAILY [facility] Last Admin: 03/03/18 08:25 Dose: 40 mg Thiamine HCl (Vitamin B1 Tab) 100 mg PO DAILY [facility] Last Admin: 03/03/18 08:26 Dose: 100 mg Physical Exam - Head Exam Head Exam: ATRAUMATIC - Eye Exam Pupil Exam: NORMAL ACCOMODATION - ENT Exam ENT Exam: Mucous Membranes Moist - Neck Exam Neck exam: Positive for: Normal Inspection - Respiratory Exam Respiratory Exam: NORMAL BREATHING PATTERN - Cardiovascular Exam Cardiovascular Exam: REGULAR RHYTHM - GI/Abdominal Exam GI & Abdominal Exam: Soft Results - Vital Signs Recent Vital Signs: Last Vital Signs Temp 98.2 F 03/03/18 08:00 Pulse 63 03/03/18 08:00 Resp 20 03/03/18 08:00 BP 113/61 03/03/18 08:00 Pulse Ox 99 03/03/18 08:00 - Labs Result Diagrams: 03/03/18 04:31 03/03/18 04:31 Labs: Laboratory Results - last 24 hr 03/02/18 03/02/18 03/02/18 15:42 16:00 16:27 WBC RBC Hgb Hct MCV MCH MCHC RDW Plt Count MPV Neut % (Auto) Lymph % (Auto) Moore % (Auto) Eos % (Auto) Baso % (Auto) Neut # (Auto) Lymph # (Auto) Moore # (Auto) Eos # (Auto) Baso # (Auto) Neutrophils % (Manual) Band Neutrophils % Lymphocytes % (Manual) Reactive Lymphs % Monocytes % (Manual) Eosinophils % (Manual) Basophils % (Manual) Metamyelocytes % Myelocytes % Promyelocytes % Blast Cells % Plasma Cell % (Manual) Nucleated RBC % Hypersegmented Polys Smudge Cells Toxic Granulation Dohle Bodies Rey Rods Platelet Estimate Plt Clumps, EDTA Large Platelets Giant Platelets RBC Morphology Polychromasia Hypochromasia (manual) Poikilocytosis (manual Basophilic Stippling Anisocytosis (manual) Microcytosis (manual) Macrocytosis (manual) Spherocytes Sickle Cells Target Cells Tear Drop Cells Ovalocytes Stomatocytes Helmet Cells [place] Bodies Gretchen Cells Acanthocytes (Spur) Rouleaux Schistocytes PT INR APTT pCO2 pO2 32 HCO3 ABG pH ABG Total CO2 ABG O2 Saturation ABG Base Excess Lew Test ABG Potassium VBG pH 7.14 L* VBG pCO2 11 L* VBG HCO3 6.5 VBG Total CO2 4.0 L VBG O2 Sat (Calc) 57.0 VBG Base Excess -23.2 L VBG Potassium 1.2 L* A-a O2 Difference Sodium 147.0 Cancelled Chloride 129.0 H Cancelled Glucose 58 L Lactate 1.2 FiO2 21.0 Blood Gas Comments Vbg Crit Value Called To Natalie andrade r.n. Crit Value Called By Deandra Fine Value Read Back Y Blood Gas Notified Time 1619 Potassium Cancelled Carbon Dioxide Cancelled Anion Gap Cancelled BUN Cancelled Creatinine Cancelled Est GFR ( Amer) Cancelled Est GFR (Non-Af Amer) Cancelled POC Glucose (mg/dL) 163 H Random Glucose Cancelled Calcium Cancelled Phosphorus Cancelled Magnesium Cancelled Total Bilirubin Cancelled AST Cancelled ALT Cancelled Alkaline Phosphatase Cancelled Ammonia Total Creatine Kinase Troponin I Cancelled NT-Pro-B Natriuret Pep Cancelled Total Protein Cancelled Albumin Cancelled Globulin Cancelled Albumin/Globulin Ratio Cancelled Vitamin B12 Arterial Blood Potassium Venous Blood Potassium 1.2 L* Urine Color Urine Clarity Urine pH Ur Specific [place] Urine Protein Urine Glucose (UA) Urine Ketones Urine Blood Urine Nitrate Urine Bilirubin Urine Urobilinogen Ur Leukocyte Esterase Urine RBC (Auto) Urine Microscopic WBC Ur Squamous Epith Cells Hyaline Casts Ur Random Sodium Ur Random Potassium Alcohol, Quantitative Cancelled Blood Type Blood Type Confirm Antibody Screen BBK History Checked 03/02/18 03/02/18 03/02/18 16:27 16:27 16:27 WBC Cancelled RBC Cancelled Hgb Cancelled Hct Cancelled MCV Cancelled MCH Cancelled MCHC Cancelled RDW Cancelled Plt Count Cancelled MPV Cancelled Neut % (Auto) Cancelled Lymph % (Auto) Cancelled Moore % (Auto) Cancelled Eos % (Auto) Cancelled Baso % (Auto) Cancelled Neut # (Auto) Cancelled Lymph # (Auto) Cancelled Moore # (Auto) Cancelled Eos # (Auto) Cancelled Baso # (Auto) Cancelled Neutrophils % (Manual) Cancelled Band Neutrophils % Cancelled Lymphocytes % (Manual) Cancelled Reactive Lymphs % Cancelled Monocytes % (Manual) Cancelled Eosinophils % (Manual) Cancelled Basophils % (Manual) Cancelled Metamyelocytes % Cancelled Myelocytes % Cancelled Promyelocytes % Cancelled Blast Cells % Cancelled Plasma Cell % (Manual) Cancelled Nucleated RBC % Cancelled Hypersegmented Polys Cancelled Smudge Cells Cancelled Toxic Granulation Cancelled Dohle Bodies Cancelled Rey Rods Cancelled Platelet Estimate Cancelled Plt Clumps, EDTA Cancelled Large Platelets Cancelled Giant Platelets Cancelled RBC Morphology Cancelled Polychromasia Cancelled Hypochromasia (manual) Cancelled Poikilocytosis (manual Cancelled Basophilic Stippling Cancelled Anisocytosis (manual) Cancelled Microcytosis (manual) Cancelled Macrocytosis (manual) Cancelled Spherocytes Cancelled Sickle Cells Cancelled Target Cells Cancelled Tear Drop Cells Cancelled Ovalocytes Cancelled Stomatocytes Cancelled Helmet Cells Cancelled [place] Bodies Cancelled Gretchen Cells Cancelled Acanthocytes (Spur) Cancelled Rouleaux Cancelled Schistocytes Cancelled PT 20.4 H INR 1.8 H APTT 66.1 H pCO2 pO2 HCO3 ABG pH ABG Total CO2 ABG O2 Saturation ABG Base Excess Lew Test ABG Potassium VBG pH VBG pCO2 VBG HCO3 VBG Total CO2 VBG O2 Sat (Calc) VBG Base Excess VBG Potassium A-a O2 Difference Sodium Chloride Glucose Lactate FiO2 Blood Gas Comments Crit Value Called To Crit Value Called By Crit Value Read Back Blood Gas Notified Time Potassium Carbon Dioxide Anion Gap BUN Creatinine Est GFR ( Amer) Est GFR (Non-Af Amer) POC Glucose (mg/dL) Random Glucose Calcium Phosphorus Magnesium Total Bilirubin AST ALT Alkaline Phosphatase Ammonia Total Creatine Kinase Troponin I NT-Pro-B Natriuret Pep Total Protein Albumin Globulin Albumin/Globulin Ratio Vitamin B12 Arterial Blood Potassium Venous Blood Potassium Urine Color Urine Clarity Urine pH Ur Specific [place] Urine Protein Urine Glucose (UA) Urine Ketones Urine Blood Urine Nitrate Urine Bilirubin Urine Urobilinogen Ur Leukocyte Esterase Urine RBC (Auto) Urine Microscopic WBC Ur Squamous Epith Cells Hyaline Casts Ur Random Sodium Ur Random Potassium Alcohol, Quantitative Blood Type A POSITIVE Blood Type Confirm Antibody Screen Negative BBK History Checked No verified bt 03/02/18 03/02/18 03/02/18 16:55 17:13 17:13 WBC 4.4 L RBC 3.56 L Hgb 11.6 L D Hct 34.8 L MCV 97.7 H MCH 32.6 H MCHC 33.4 RDW 13.7 Plt Count 96 L D MPV 9.7 Neut % (Auto) 79.6 H Lymph % (Auto) 13.3 L Moore % (Auto) 6.9 Eos % (Auto) 0.1 Baso % (Auto) 0.1 Neut # (Auto) 3.5 Lymph # (Auto) 0.6 L Moore # (Auto) 0.3 Eos # (Auto) 0.0 Baso # (Auto) 0.0 Neutrophils % (Manual) Band Neutrophils % Lymphocytes % (Manual) Reactive Lymphs % Monocytes % (Manual) Eosinophils % (Manual) Basophils % (Manual) Metamyelocytes % Myelocytes % Promyelocytes % Blast Cells % Plasma Cell % (Manual) Nucleated RBC % Hypersegmented Polys Smudge Cells Toxic Granulation Dohle Bodies Rey Rods Platelet Estimate Plt Clumps, EDTA Large Platelets Giant Platelets RBC Morphology Polychromasia Hypochromasia (manual) Poikilocytosis (manual Basophilic Stippling Anisocytosis (manual) Microcytosis (manual) Macrocytosis (manual) Spherocytes Sickle Cells Target Cells Tear Drop Cells Ovalocytes Stomatocytes Helmet Cells [place] Bodies Gretchen Cells Acanthocytes (Spur) Rouleaux Schistocytes PT INR APTT pCO2 24 L pO2 104 H HCO3 10.2 L ABG pH 7.15 L* ABG Total CO2 9.1 L ABG O2 Saturation 99.8 H ABG Base Excess -18.8 L Lew Test Yes ABG Potassium 5.9 H VBG pH VBG pCO2 VBG HCO3 VBG Total CO2 VBG O2 Sat (Calc) VBG Base Excess VBG Potassium A-a O2 Difference 16.0 Sodium 132.0 141 Chloride 97.0 L 101 Glucose 205 H Lactate 4.0 H* FiO2 21.0 Blood Gas Comments Ra21% Crit Value Called To Dr. sona rodriguez m.d Crit Value Called By Deandra Fine Value Read Back Y Blood Gas Notified Time 1705 Potassium 5.9 H Carbon Dioxide 7 L* D Anion Gap 39 H BUN 111 H* D Creatinine 21.6 H* Est GFR ( Amer) 3 Est GFR (Non-Af Amer) 2 POC Glucose (mg/dL) Random Glucose 188 H Calcium 8.0 L Phosphorus 13.8 H Magnesium 3.0 H Total Bilirubin 0.8 AST 33 ALT 50 Alkaline Phosphatase 84 Ammonia Total Creatine Kinase 125 Troponin I < 0.0120 NT-Pro-B Natriuret Pep 245 Total Protein 7.7 Albumin 4.6 Globulin 3.1 Albumin/Globulin Ratio 1.5 Vitamin B12 Arterial Blood Potassium 5.9 H Venous Blood Potassium Urine Color Urine Clarity Urine pH Ur Specific [place] Urine Protein Urine Glucose (UA) Urine Ketones Urine Blood Urine Nitrate Urine Bilirubin Urine Urobilinogen Ur Leukocyte Esterase Urine RBC (Auto) Urine Microscopic WBC Ur Squamous Epith Cells Hyaline Casts Ur Random Sodium Ur Random Potassium Alcohol, Quantitative 143 H Blood Type Blood Type Confirm Antibody Screen BBK History Checked 03/02/18 03/02/18 03/02/18 17:55 20:56 20:56 WBC RBC Hgb Hct MCV MCH MCHC RDW Plt Count MPV Neut % (Auto) Lymph % (Auto) Moore % (Auto) Eos % (Auto) Baso % (Auto) Neut # (Auto) Lymph # (Auto) Moore # (Auto) Eos # (Auto) Baso # (Auto) Neutrophils % (Manual) Band Neutrophils % Lymphocytes % (Manual) Reactive Lymphs % Monocytes % (Manual) Eosinophils % (Manual) Basophils % (Manual) Metamyelocytes % Myelocytes % Promyelocytes % Blast Cells % Plasma Cell % (Manual) Nucleated RBC % Hypersegmented Polys Smudge Cells Toxic Granulation Dohle Bodies Ery Rods Platelet Estimate Plt Clumps, EDTA Large Platelets Giant Platelets RBC Morphology Polychromasia Hypochromasia (manual) Poikilocytosis (manual Basophilic Stippling Anisocytosis (manual) Microcytosis (manual) Macrocytosis (manual) Spherocytes Sickle Cells Target Cells Tear Drop Cells Ovalocytes Stomatocytes Helmet Cells [place] Bodies Gretchen Cells Acanthocytes (Spur) Rouleaux Schistocytes PT INR APTT pCO2 pO2 HCO3 ABG pH ABG Total CO2 ABG O2 Saturation ABG Base Excess Lew Test ABG Potassium VBG pH VBG pCO2 VBG HCO3 VBG Total CO2 VBG O2 Sat (Calc) VBG Base Excess VBG Potassium A-a O2 Difference Sodium Chloride Glucose Lactate FiO2 Blood Gas Comments Crit Value Called To Crit Value Called By Crit Value Read Back Blood Gas Notified Time Potassium Carbon Dioxide Anion Gap BUN Creatinine Est GFR ( Amer) Est GFR (Non-Af Amer) POC Glucose (mg/dL) Random Glucose Calcium Phosphorus Magnesium Total Bilirubin AST ALT Alkaline Phosphatase Ammonia Total Creatine Kinase Troponin I NT-Pro-B Natriuret Pep Total Protein Albumin Globulin Albumin/Globulin Ratio Vitamin B12 Arterial Blood Potassium Venous Blood Potassium Urine Color Yellow Urine Clarity Clear Urine pH 6.0 Ur Specific [place] 1.006 Urine Protein 30 Urine Glucose (UA) >=500 Urine Ketones Negative Urine Blood Small Urine Nitrate Negative Urine Bilirubin Negative Urine Urobilinogen 0.2-1.0 Ur Leukocyte Esterase Neg Urine RBC (Auto) 1 Urine Microscopic WBC 1 Ur Squamous Epith Cells < 1 Hyaline Casts 3-5 H Ur Random Sodium 98 Ur Random Potassium 12.7 Alcohol, Quantitative Blood Type Blood Type Confirm A POSITIVE Antibody Screen BBK History Checked 03/02/18 03/02/18 03/02/18 21:53 23:18 23:18 WBC RBC Hgb Hct MCV MCH MCHC RDW Plt Count MPV Neut % (Auto) Lymph % (Auto) Moore % (Auto) Eos % (Auto) Baso % (Auto) Neut # (Auto) Lymph # (Auto) Moore # (Auto) Eos # (Auto) Baso # (Auto) Neutrophils % (Manual) Band Neutrophils % Lymphocytes % (Manual) Reactive Lymphs % Monocytes % (Manual) Eosinophils % (Manual) Basophils % (Manual) Metamyelocytes % Myelocytes % Promyelocytes % Blast Cells % Plasma Cell % (Manual) Nucleated RBC % Hypersegmented Polys Smudge Cells Toxic Granulation Dohle Bodies Rey Rods Platelet Estimate Plt Clumps, EDTA Large Platelets Giant Platelets RBC Morphology Polychromasia Hypochromasia (manual) Poikilocytosis (manual Basophilic Stippling Anisocytosis (manual) Microcytosis (manual) Macrocytosis (manual) Spherocytes Sickle Cells Target Cells Tear Drop Cells Ovalocytes Stomatocytes Helmet Cells [place] Bodies Gretchen Cells Acanthocytes (Spur) Rouleaux Schistocytes PT INR APTT pCO2 pO2 HCO3 ABG pH ABG Total CO2 ABG O2 Saturation ABG Base Excess Lew Test ABG Potassium VBG pH VBG pCO2 VBG HCO3 VBG Total CO2 VBG O2 Sat (Calc) VBG Base Excess VBG Potassium A-a O2 Difference Sodium 143 Chloride 104 Glucose Lactate FiO2 Blood Gas Comments Crit Value Called To Crit Value Called By Crit Value Read Back Blood Gas Notified Time Potassium 4.4 Carbon Dioxide 12 L Anion Gap 31 H BUN 105 H* Creatinine 17.5 H* Est GFR ( Amer) 3 Est GFR (Non-Af Amer) 3 POC Glucose (mg/dL) 99 Random Glucose 61 L Calcium 8.4 Phosphorus Magnesium Total Bilirubin AST ALT Alkaline Phosphatase Ammonia 44 Total Creatine Kinase Troponin I NT-Pro-B Natriuret Pep Total Protein Albumin Globulin Albumin/Globulin Ratio Vitamin B12 Arterial Blood Potassium Venous Blood Potassium Urine Color Urine Clarity Urine pH Ur Specific [place] Urine Protein Urine Glucose (UA) Urine Ketones Urine Blood Urine Nitrate Urine Bilirubin Urine Urobilinogen Ur Leukocyte Esterase Urine RBC (Auto) Urine Microscopic WBC Ur Squamous Epith Cells Hyaline Casts Ur Random Sodium Ur Random Potassium Alcohol, Quantitative Blood Type Blood Type Confirm Antibody Screen BBK History Checked 03/03/18 03/03/18 03/03/18 01:03 04:00 04:31 WBC 2.7 L RBC 3.23 L Hgb 10.8 L Hct 30.9 L MCV 95.9 H MCH 33.3 H MCHC 34.8 RDW 13.4 Plt Count 81 L MPV Neut % (Auto) Lymph % (Auto) Moore % (Auto) Eos % (Auto) Baso % (Auto) Neut # (Auto) Lymph # (Auto) Moore # (Auto) Eos # (Auto) Baso # (Auto) Neutrophils % (Manual) Band Neutrophils % Lymphocytes % (Manual) Reactive Lymphs % Monocytes % (Manual) Eosinophils % (Manual) Basophils % (Manual) Metamyelocytes % Myelocytes % Promyelocytes % Blast Cells % Plasma Cell % (Manual) Nucleated RBC % Hypersegmented Polys Smudge Cells Toxic Granulation Dohle Bodies Rey Rods Platelet Estimate Plt Clumps, EDTA Large Platelets Giant Platelets RBC Morphology Polychromasia Hypochromasia (manual) Poikilocytosis (manual Basophilic Stippling Anisocytosis (manual) Microcytosis (manual) Macrocytosis (manual) Spherocytes Sickle Cells Target Cells Tear Drop Cells Ovalocytes Stomatocytes Helmet Cells [place] Bodies [place] Cells Acanthocytes (Spur) Rouleaux Schistocytes PT INR APTT pCO2 pO2 24 L HCO3 ABG pH ABG Total CO2 ABG O2 Saturation ABG Base Excess Lew Test ABG Potassium VBG pH 7.25 L VBG pCO2 44 VBG HCO3 17.6 VBG Total CO2 20.7 L VBG O2 Sat (Calc) 34.7 L VBG Base Excess -7.6 L VBG Potassium 5.1 A-a O2 Difference Sodium 142.0 Chloride 108.0 H Glucose 234 H Lactate 1.9 FiO2 21.0 Blood Gas Comments Crit Value Called To Crit Value Called By Crit Value Read Back Blood Gas Notified Time Potassium Carbon Dioxide Anion Gap BUN Creatinine Est GFR ( Amer) Est GFR (Non-Af Amer) POC Glucose (mg/dL) 64 L Random Glucose Calcium Phosphorus Magnesium Total Bilirubin AST ALT Alkaline Phosphatase Ammonia Total Creatine Kinase Troponin I NT-Pro-B Natriuret Pep Total Protein Albumin Globulin Albumin/Globulin Ratio Vitamin B12 Arterial Blood Potassium Venous Blood Potassium 5.1 Urine Color Urine Clarity Urine pH Ur Specific [place] Urine Protein Urine Glucose (UA) Urine Ketones Urine Blood Urine Nitrate Urine Bilirubin Urine Urobilinogen Ur Leukocyte Esterase Urine RBC (Auto) Urine Microscopic WBC Ur Squamous Epith Cells Hyaline Casts Ur Random Sodium Ur Random Potassium Alcohol, Quantitative Blood Type Blood Type Confirm Antibody Screen BBK History Checked 03/03/18 03/03/18 03/03/18 04:31 04:31 05:07 WBC RBC Hgb Hct MCV MCH MCHC RDW Plt Count MPV Neut % (Auto) Lymph % (Auto) Moore % (Auto) Eos % (Auto) Baso % (Auto) Neut # (Auto) Lymph # (Auto) Moore # (Auto) Eos # (Auto) Baso # (Auto) Neutrophils % (Manual) Band Neutrophils % Lymphocytes % (Manual) Reactive Lymphs % Monocytes % (Manual) Eosinophils % (Manual) Basophils % (Manual) Metamyelocytes % Myelocytes % Promyelocytes % Blast Cells % Plasma Cell % (Manual) Nucleated RBC % Hypersegmented Polys Smudge Cells Toxic Granulation Dohle Bodies Rey Rods Platelet Estimate Plt Clumps, EDTA Large Platelets Giant Platelets RBC Morphology Polychromasia Hypochromasia (manual) Poikilocytosis (manual Basophilic Stippling Anisocytosis (manual) Microcytosis (manual) Macrocytosis (manual) Spherocytes Sickle Cells Target Cells Tear Drop Cells Ovalocytes Stomatocytes Helmet Cells [place] Bodies [place] Cells Acanthocytes (Spur) Rouleaux Schistocytes PT 10.9 D INR 1.0 D APTT 26.7 D pCO2 pO2 HCO3 ABG pH ABG Total CO2 ABG O2 Saturation ABG Base Excess Lew Test ABG Potassium VBG pH VBG pCO2 VBG HCO3 VBG Total CO2 VBG O2 Sat (Calc) VBG Base Excess VBG Potassium A-a O2 Difference Sodium 144 Chloride 108 H Glucose Lactate FiO2 Blood Gas Comments Crit Value Called To Crit Value Called By Crit Value Read Back Blood Gas Notified Time Potassium 5.2 H Carbon Dioxide 17 L Anion Gap 24 H BUN 97 H Creatinine 13.2 H* D Est GFR ( Amer) 5 Est GFR (Non-Af Amer) 4 POC Glucose (mg/dL) 203 H Random Glucose 212 H Calcium 7.8 L Phosphorus Magnesium Total Bilirubin AST ALT Alkaline Phosphatase Ammonia Total Creatine Kinase Troponin I NT-Pro-B Natriuret Pep Total Protein Albumin Globulin Albumin/Globulin Ratio Vitamin B12 699 Arterial Blood Potassium Venous Blood Potassium Urine Color Urine Clarity Urine pH Ur Specific [place] Urine Protein Urine Glucose (UA) Urine Ketones Urine Blood Urine Nitrate Urine Bilirubin Urine Urobilinogen Ur Leukocyte Esterase Urine RBC (Auto) Urine Microscopic WBC Ur Squamous Epith Cells Hyaline Casts Ur Random Sodium Ur Random Potassium Alcohol, Quantitative Blood Type Blood Type Confirm Antibody Screen BBK History Checked Assessment & Plan - Assessment and Plan (Free Text) Assessment: 63 Male with CKD, DM, HTN, who has been taking NSAID meds for sometimes, now admitted with lightheadedness, low BS and very high ceatinine, which showing rapid improvement with hydration. #. Acute on chronic kidney disease Pre-renal ATN from hypoglycemia NSAID induced nephrotoxcity No obstruction Consult Dr Woodward nephrology Renal function and K improving with hydration, good urine output Will monitor closely, no SECOND HAND needed at this point, as per Renal - follow renal labs #. DM II with Hypoglycemia - Hold Glucotrol - IV Fluid with D5 - Regular Insulin sliding scale according to accucheck - HbA1c Repeat BMP in PM, if metabolic acidosis and hyperkalemia persists, will start bicarb drip. #. Hyperkalemia from the Renal failure and acidosis - Patient was given Calcium Gluconate, Sodium bicarbonate, Albuterol nebulizer and Kayexalate - Follow electrolytes #. Coagulopathy with elevated INR and PTT probably due to Vitamin K deficiency/ poor intake and Alcohol abuse - Vitamin K PO - follow INR/PTT - Consider US of the liver #. Pancytopenia with Patelets and Hemoglobin much lower - Follow Vitamin B12/ folate as the MCV was elevated - Follow Hb and platelets #. Alcohol abuse - Banana bag which includes Thiamine, Folic acid and Multivitamin - Alcohol withdrawal precaution with a CIWA protocol #. Stress ulcer prophylaxis with Pantoprazole #. DVT Prophylaxois with SCD No Anticoagulant because the patient's INR/PTT are already elevated #Code Status: Full
--- NOTE | 2018-03-03 10:13 | US ---
PROCEDURE: Ultrasound of the Kidneys HISTORY: kidney failure COMPARISON: 05/20/2017 renal ultrasound. TECHNIQUE: Sonogram of the kidneys. FINDINGS: RIGHT KIDNEY: Measures: 5.1 x 6 x 10.1 cm. Normal in size, contour and echogenicity. No stone, solid mass lesion or hydronephrosis visualized. LEFT KIDNEY: Measures: 4.8 x 6.1 x 12.3 cm. Normal in size, contour and echogenicity. No stone, solid mass lesion or hydronephrosis visualized. OTHER FINDINGS: None. IMPRESSION: Unremarkable renal sonogram.No significant interval change compared to the prior examination(s). Concordant results (preliminary interpretation) provided by [facility]. Procedure Completed: 00:35 Preliminary ([facility]) Report: Dictated and Authenticated: 01:02 Final Interpretation: 10:11. March 03, 2018.
[2018-03-03] MEDS: Insulin Regular 100 units/ml SC SCH ×3 (12:15→21:30)
[2018-03-03 16:25] LABS: ALB/GLOB RATIO 1.4 (1.0-2.1); ALBUMIN 3.6 g/dL (3.5-5.0); CALCIUM 8.1 mg/dL (8.4-10.2)
--- NOTE | 2018-03-03 18:18 | CP.PCM.HP ---
History of Present Illness - History of Present Illness History of Present Illness: CC: Dizziness and Weakness History of Present Illness: A 62 years old male with hx of DM II, HTN, chronic back pain and has been drinking alcohol. He was brought to the ED via the EMS because of weakness and severe lightheadedness where he thought that he was about to black out. An ambulance was called and his blood glucose was found to be 40mg/dl. He was given IV dextrose and began feeling better. He referred nausea, mild SOB, pain to the right back. he did fall one day prior to this admission but did not hit his head but suffered some pain to the back of his neck. Today Azotemia has improved significantly. Denies fever or chills. Present on Admission - Present on Admission Any Indicators Present on Admission: No Review of Systems - Review of Systems All systems: reviewed and no additional remarkable complaints except Past Patient History - Past Medical History & Family History Past Medical History?: Yes Past Family History: Reviewed and not pertinent - Past Social History Smoking Status: Former Smoker Alcohol: Social Drugs: Denies - CARDIAC Hx Hypercholesterolemia: Yes Hx Hypertension: Yes - PULMONARY Hx Asthma: Yes (Childhood) Hx Pneumonia: Yes (RXfor Cavitory Lesion in the past) - NEUROLOGICAL Hx Neurological Disorder: No - HEENT Hx HEENT Problems: Yes - RENAL Hx Chronic Kidney Disease: Yes - ENDOCRINE/METABOLIC Hx Endocrine Disorders: Yes Hx Diabetes Mellitus Type 2: Yes - HEMATOLOGICAL/ONCOLOGICAL Hx Anemia: No - INTEGUMENTARY Hx Dermatological Problems: No - MUSCULOSKELETAL/RHEUMATOLOGICAL Hx Arthritis: Yes Other/Comment: Cervical Radiculopathy - GASTROINTESTINAL Hx Gastrointestinal Disorders: No - GENITOURINARY/GYNECOLOGICAL Hx Genitourinary Disorders: No - PSYCHIATRIC Hx Psychophysiologic Disorder: No - SURGICAL HISTORY Hx Appendectomy: Yes Hx Musculoskeletal Surgery: Yes (Right Wrist ORIF ) Hx Orthopedic Surgery: Yes (Knee and C- Spine ) - ANESTHESIA Hx Anesthesia: Yes Hx Anesthesia Reactions: No Hx Malignant Hyperthermia: No Has any member of the family had a problem w/ anesthesia?: No Meds Allergies/Adverse Reactions: Allergies Allergy/AdvReac Type Severity Reaction Status Date / Time No Known Allergies Allergy Verified 11/20/16 14:19 Physical Exam - Constitutional Appears: No Acute Distress, Chronically Ill - Head Exam Head Exam: ATRAUMATIC, NORMAL INSPECTION, NORMOCEPHALIC - Eye Exam Eye Exam: EOMI, Normal appearance, PERRL Pupil Exam: NORMAL ACCOMODATION, PERRL - ENT Exam ENT Exam: Mucous Membranes Moist, Normal Exam - Neck Exam Neck exam: Positive for: Normal Inspection - Respiratory Exam Respiratory Exam: Clear to Auscultation Bilateral, NORMAL BREATHING PATTERN - Cardiovascular Exam Cardiovascular Exam: REGULAR RHYTHM, +S1, +S2 - GI/Abdominal Exam GI & Abdominal Exam: Normal Bowel Sounds, Soft. absent: Tenderness - Extremities Exam Extremities exam: Positive for: normal capillary refill, normal inspection - Back Exam Back exam: FULL ROM, NORMAL INSPECTION - Neurological Exam Neurological exam: Alert, CN II-XII Intact, Normal Gait, Reflexes Normal - Psychiatric Exam Psychiatric exam: Normal Affect, Normal Mood - Skin Skin Exam: Dry, Intact, Normal Color, Warm Results - Vital Signs Recent Vital Signs: Last Vital Signs Temp 98.4 F 03/03/18 16:00 Pulse 74 03/03/18 17:00 Resp 16 03/03/18 17:00 BP 118/64 03/03/18 17:00 Pulse Ox 98 03/03/18 17:00 - Labs Result Diagrams: 03/04/18 05:12 03/03/18 15:39 Labs: Laboratory Results - last 24 hr 03/02/18 03/02/18 03/02/18 16:27 17:13 17:55 WBC RBC Hgb Hct MCV MCH MCHC RDW Plt Count PT INR APTT pO2 VBG pH VBG pCO2 VBG HCO3 VBG Total CO2 VBG O2 Sat (Calc) VBG Base Excess VBG Potassium Glucose Lactate FiO2 Sodium 141 Potassium 5.9 H Chloride 101 Carbon Dioxide 7 L* D Anion Gap 39 H BUN 111 H* D Creatinine 21.6 H* Est GFR ( Amer) 3 Est GFR (Non-Af Amer) 2 POC Glucose (mg/dL) Random Glucose 188 H Calcium 8.0 L Phosphorus 13.8 H Magnesium 3.0 H Total Bilirubin 0.8 AST 33 ALT 50 Alkaline Phosphatase 84 Ammonia Total Protein 7.7 Albumin 4.6 Globulin 3.1 Albumin/Globulin Ratio 1.5 Vitamin B12 Venous Blood Potassium Urine Color Urine Clarity Urine pH Ur Specific [place] Urine Protein Urine Glucose (UA) Urine Ketones Urine Blood Urine Nitrate Urine Bilirubin Urine Urobilinogen Ur Leukocyte Esterase Urine RBC (Auto) Urine Microscopic WBC Ur Squamous Epith Cells Hyaline Casts Ur Random Sodium Ur Random Potassium Alcohol, Quantitative 143 H Blood Type A POSITIVE Blood Type Confirm A POSITIVE Antibody Screen Negative 03/02/18 03/02/18 03/02/18 20:56 20:56 21:53 WBC RBC Hgb Hct MCV MCH MCHC RDW Plt Count PT INR APTT pO2 VBG pH VBG pCO2 VBG HCO3 VBG Total CO2 VBG O2 Sat (Calc) VBG Base Excess VBG Potassium Glucose Lactate FiO2 Sodium Potassium Chloride Carbon Dioxide Anion Gap BUN Creatinine Est GFR ( Amer) Est GFR (Non-Af Amer) POC Glucose (mg/dL) 99 Random Glucose Calcium Phosphorus Magnesium Total Bilirubin AST ALT Alkaline Phosphatase Ammonia Total Protein Albumin Globulin Albumin/Globulin Ratio Vitamin B12 Venous Blood Potassium Urine Color Yellow Urine Clarity Clear Urine pH 6.0 Ur Specific [place] 1.006 Urine Protein 30 Urine Glucose (UA) >=500 Urine Ketones Negative Urine Blood Small Urine Nitrate Negative Urine Bilirubin Negative Urine Urobilinogen 0.2-1.0 Ur Leukocyte Esterase Neg Urine RBC (Auto) 1 Urine Microscopic WBC 1 Ur Squamous Epith Cells < 1 Hyaline Casts 3-5 H Ur Random Sodium 98 Ur Random Potassium 12.7 Alcohol, Quantitative Blood Type Blood Type Confirm Antibody Screen 03/02/18 03/02/18 03/03/18 23:18 23:18 01:03 WBC RBC Hgb Hct MCV MCH MCHC RDW Plt Count PT INR APTT pO2 VBG pH VBG pCO2 VBG HCO3 VBG Total CO2 VBG O2 Sat (Calc) VBG Base Excess VBG Potassium Glucose Lactate FiO2 Sodium 143 Potassium 4.4 Chloride 104 Carbon Dioxide 12 L Anion Gap 31 H BUN 105 H* Creatinine 17.5 H* Est GFR ( Amer) 3 Est GFR (Non-Af Amer) 3 POC Glucose (mg/dL) 64 L Random Glucose 61 L Calcium 8.4 Phosphorus Magnesium Total Bilirubin AST ALT Alkaline Phosphatase Ammonia 44 Total Protein Albumin Globulin Albumin/Globulin Ratio Vitamin B12 Venous Blood Potassium Urine Color Urine Clarity Urine pH Ur Specific [place] Urine Protein Urine Glucose (UA) Urine Ketones Urine Blood Urine Nitrate Urine Bilirubin Urine Urobilinogen Ur Leukocyte Esterase Urine RBC (Auto) Urine Microscopic WBC Ur Squamous Epith Cells Hyaline Casts Ur Random Sodium Ur Random Potassium Alcohol, Quantitative Blood Type Blood Type Confirm Antibody Screen 03/03/18 03/03/18 03/03/18 04:00 04:31 04:31 WBC 2.7 L RBC 3.23 L Hgb 10.8 L Hct 30.9 L MCV 95.9 H MCH 33.3 H MCHC 34.8 RDW 13.4 Plt Count 81 L PT INR APTT pO2 24 L VBG pH 7.25 L VBG pCO2 44 VBG HCO3 17.6 VBG Total CO2 20.7 L VBG O2 Sat (Calc) 34.7 L VBG Base Excess -7.6 L VBG Potassium 5.1 Glucose 234 H Lactate 1.9 FiO2 21.0 Sodium 142.0 144 Potassium 5.2 H Chloride 108.0 H 108 H Carbon Dioxide 17 L Anion Gap 24 H BUN 97 H Creatinine 13.2 H* D Est GFR ( Amer) 5 Est GFR (Non-Af Amer) 4 POC Glucose (mg/dL) Random Glucose 212 H Calcium 7.8 L Phosphorus Magnesium Total Bilirubin AST ALT Alkaline Phosphatase Ammonia Total Protein Albumin Globulin Albumin/Globulin Ratio Vitamin B12 699 Venous Blood Potassium 5.1 Urine Color Urine Clarity Urine pH Ur Specific [place] Urine Protein Urine Glucose (UA) Urine Ketones Urine Blood Urine Nitrate Urine Bilirubin Urine Urobilinogen Ur Leukocyte Esterase Urine RBC (Auto) Urine Microscopic WBC Ur Squamous Epith Cells Hyaline Casts Ur Random Sodium Ur Random Potassium Alcohol, Quantitative Blood Type Blood Type Confirm Antibody Screen 03/03/18 03/03/18 03/03/18 04:31 05:07 11:47 WBC RBC Hgb Hct MCV MCH MCHC RDW Plt Count PT 10.9 D INR 1.0 D APTT 26.7 D pO2 VBG pH VBG pCO2 VBG HCO3 VBG Total CO2 VBG O2 Sat (Calc) VBG Base Excess VBG Potassium Glucose Lactate FiO2 Sodium Potassium Chloride Carbon Dioxide Anion Gap BUN Creatinine Est GFR ( Amer) Est GFR (Non-Af Amer) POC Glucose (mg/dL) 203 H 214 H Random Glucose Calcium Phosphorus Magnesium Total Bilirubin AST ALT Alkaline Phosphatase Ammonia Total Protein Albumin Globulin Albumin/Globulin Ratio Vitamin B12 Venous Blood Potassium Urine Color Urine Clarity Urine pH Ur Specific [place] Urine Protein Urine Glucose (UA) Urine Ketones Urine Blood Urine Nitrate Urine Bilirubin Urine Urobilinogen Ur Leukocyte Esterase Urine RBC (Auto) Urine Microscopic WBC Ur Squamous Epith Cells Hyaline Casts Ur Random Sodium Ur Random Potassium Alcohol, Quantitative Blood Type Blood Type Confirm Antibody Screen 03/03/18 03/03/18 15:39 16:51 WBC RBC Hgb Hct MCV MCH MCHC RDW Plt Count PT INR APTT pO2 VBG pH VBG pCO2 VBG HCO3 VBG Total CO2 VBG O2 Sat (Calc) VBG Base Excess VBG Potassium Glucose Lactate FiO2 Sodium 143 Potassium 4.6 Chloride 111 H Carbon Dioxide 19 L Anion Gap 18 BUN 81 H Creatinine 7.2 H Est GFR ( Amer) 9 Est GFR (Non-Af Amer) 8 POC Glucose (mg/dL) 191 H Random Glucose 165 H Calcium 8.1 L Phosphorus Magnesium Total Bilirubin 0.9 AST 24 ALT 45 Alkaline Phosphatase 64 Ammonia Total Protein 6.2 L Albumin 3.6 Globulin 2.6 Albumin/Globulin Ratio 1.4 Vitamin B12 Venous Blood Potassium Urine Color Urine Clarity Urine pH Ur Specific [place] Urine Protein Urine Glucose (UA) Urine Ketones Urine Blood Urine Nitrate Urine Bilirubin Urine Urobilinogen Ur Leukocyte Esterase Urine RBC (Auto) Urine Microscopic WBC Ur Squamous Epith Cells Hyaline Casts Ur Random Sodium Ur Random Potassium Alcohol, Quantitative Blood Type Blood Type Confirm Antibody Screen - EKG Data EKG Interpreted by: Myself EKG shows normal: Sinus rhythm, [place], Intervals, QRS complexes, ST-T waves Rate: Normal - Imaging and Cardiology Chest x-ray Status: Report reviewed by me Additional comment: HISTORY: weakness COMPARISON: Chest radiograph dated 05/28/2017. FINDINGS: LUNGS: No active pulmonary disease. PLEURA: No significant pleural effusion identified, no pneumothorax apparent. CARDIOVASCULAR: Atherosclerotic aortic calcifications. Cardiomediastinal silhouette within normal limits. OSSEOUS STRUCTURES: Unchanged. VISUALIZED UPPER ABDOMEN: Normal. OTHER FINDINGS: None. IMPRESSION: No active disease. US - abdomen Status: Report reviewed by me Additional comment: PROCEDURE: Ultrasound of the Kidneys HISTORY: kidney failure COMPARISON: 05/20/2017 renal ultrasound. TECHNIQUE: Sonogram of the kidneys. FINDINGS: RIGHT KIDNEY: Measures: 5.1 x 6 x 10.1 cm. Normal in size, contour and echogenicity. No stone, solid mass lesion or hydronephrosis visualized. LEFT KIDNEY: Measures: 4.8 x 6.1 x 12.3 cm. Normal in size, contour and echogenicity. No stone, solid mass lesion or hydronephrosis visualized. OTHER FINDINGS: None. IMPRESSION: Unremarkable renal sonogram.No significant interval change compared to the prior examination(s). Concordant results (preliminary interpretation) provided by [facility]. Procedure Completed: 00:35 Preliminary ([facility]) Report: Dictated and Authenticated: 01:02 Final Interpretation: 10:11. March 03, 2018. Assessment & Plan (1) Acute renal insufficiency Assessment and Plan: IVF Monitor I/O Avoid Nephrotoxic Medications [employer] onboard Monitor BMP Status: Acute Priority: High (2) Hyperkalemia Assessment and Plan: RX in the ER, and Normalized Continue to Monitor BMP Status: Resolved Priority: High (3) Hypoglycemia Assessment and Plan: after treatment in the ER Accu check ACHS Status: Resolved Priority: High (4) Chronic pain Status: Chronic Priority: Low (5) Pancytopenia Assessment and Plan: ?Etiology CBC Sample Carrier Consult Status: Acute
--- NOTE | 2018-03-03 18:25 | CARD ---
APPROVED REPORT EKG Measurement Heart [id number] <Conclusion> Normal sinus rhythm Normal ECG
[2018-03-04] MEDS: Sodium Chloride 0.9% 1,000 ML IV SCH ×3 (04:00→22:37)
[2018-03-04 05:31] LABS: HEMOGLOBIN 9.4 g/dL (12.0-18.0); MEAN CELL VOLUME 97.6 fl (80.0-94.0); MEAN CORPUSCULAR HEMOGLOBIN 32.9 pg (27.0-31.0); MEAN CORPUSCULAR HGB CONC 33.7 g/dL (33.0-37.0); RBC 2.86 Mil/uL (4.40-5.90); RED CELL DISTRIBUTION WIDTH 13.3 % (11.5-14.5)
[2018-03-04 05:41] LABS: ALB/GLOB RATIO 1.3 (1.0-2.1)
[2018-03-04 06:02] LABS: ALBUMIN 3.4 g/dL (3.5-5.0); CALCIUM 8.1 mg/dL (8.4-10.2)
[2018-03-04] MEDS: Multivitamin With Minerals Tab PO SCH (09:52)
[2018-03-04] MEDS: Pantoprazole 40 mg EC Tab PO SCH (09:52)
[2018-03-04] MEDS: Insulin Regular 100 units/ml SC SCH ×4 (09:53→22:35)
--- NOTE | 2018-03-04 14:33 | CP.PCM.PN ---
Subjective - Date & Time of Evaluation Date of Evaluation: 03/04/18 Time of Evaluation: 14:30 - Subjective Subjective: Seen and examined at the bed side. Continue to complain generalized weakness. Good urine outpatient. Denies Nausea or vomiting. Objective - Vital Signs/Intake and Output Vital Signs (last 24 hours): Temp Pulse Resp BP Pulse Ox 97.8 F 50 L 16 143/62 100 03/04/18 12:10 03/04/18 12:10 03/04/18 12:10 03/04/18 12:10 03/04/18 12:10 Intake and Output: 03/04/18 03/04/18 06:59 18:59 Intake Total 1875 1050 Output Total 1250 800 Balance 625 250 - Medications Medications: Current Medications Atorvastatin Calcium (Lipitor) 20 mg PO DAILY [facility] Last Admin: 03/04/18 09:52 Dose: 20 mg Folic Acid (Folic Acid) 1 mg PO DAILY [facility] Last Admin: 03/04/18 09:52 Dose: 1 mg Sodium Chloride (Sodium Chloride 0.9%) 1,000 mls @ 200 mls/hr IV .Q5H [facility] Stop: 03/04/18 19:11 Last Admin: 03/04/18 12:19 Dose: 200 mls/hr Insulin Human Regular (Humulin R) 0 units SC ACHS [facility] PRN Reason: Protocol Last Admin: 03/04/18 12:18 Dose: 2 unit Lorazepam (Ativan) 1 mg IVP Q4 PRN PRN Reason: Agitation Last Admin: 03/03/18 02:36 Dose: 1 mg Multivitamins/Minerals (Therapeutic-M Tab) 1 tab PO DAILY [facility] Last Admin: 03/04/18 09:52 Dose: 1 tab Ondansetron HCl (Zofran Inj) 4 mg IVP Q4 PRN PRN Reason: Nausea/Vomiting Pantoprazole Sodium (Protonix Ec Tab) 40 mg PO DAILY [facility] Last Admin: 03/04/18 09:52 Dose: 40 mg Thiamine HCl (Vitamin B1 Tab) 100 mg PO DAILY [facility] Last Admin: 03/04/18 09:52 Dose: 100 mg - Labs Labs: 03/04/18 05:12 03/04/18 05:12 PT 10.9 Seconds (9.8-13.1) D 03/03/18 04:31 INR 1.0 (0.9-1.2) D 03/03/18 04:31 APTT 26.7 Seconds (25.6-37.1) D 03/03/18 04:31 - Constitutional Appears: No Acute Distress - Head Exam Head Exam: ATRAUMATIC, NORMAL INSPECTION, NORMOCEPHALIC - Eye Exam Eye Exam: EOMI, Normal appearance, PERRL Pupil Exam: NORMAL ACCOMODATION, PERRL - ENT Exam ENT Exam: Mucous Membranes Moist, Normal Exam - Neck Exam Neck Exam: Full ROM, Normal Inspection. absent: Lymphadenopathy - Respiratory Exam Respiratory Exam: Clear to Ausculation Bilateral, NORMAL BREATHING PATTERN - Cardiovascular Exam Cardiovascular Exam: REGULAR RHYTHM, +S1, +S2. absent: Murmur - GI/Abdominal Exam GI & Abdominal Exam: Soft, Normal Bowel Sounds. absent: Tenderness - Extremities Exam Extremities Exam: Full ROM, Normal Capillary Refill, Normal Inspection. absent : Joint Swelling, Pedal Edema - Back Exam Back Exam: NORMAL INSPECTION - Neurological Exam Neurological Exam: Alert, Awake, CN II-XII Intact, Normal Gait, Oriented x3 - Psychiatric Exam Psychiatric exam: Normal Affect, Normal Mood - Skin Skin Exam: Dry, Intact, Normal Color, Warm Assessment and Plan (1) Acute renal insufficiency Assessment & Plan: Improving Continue IVF I/O Avoid Nephrotoxic Medications Continue to Monitor BMP Status: Acute (2) Hyperkalemia Status: Resolved (3) Hypoglycemia Status: Resolved (4) Chronic pain Status: Chronic (5) Pancytopenia Status: Acute (6) Alcohol withdrawal Assessment & Plan: Continue Thiamine/Folic Acid Counselled to Quit ETOH use Status: Acute
--- NOTE | 2018-03-04 21:25 | PN ---
DATE: 03/04/2018 CRITICAL CARE PROGRESS NOTE LOCATION: The patient in ICU bed 426. TIME SPENT: 35 minutes. The patient is seen and evaluated at the bedside. Case was discussed in multidisciplinary ICU rounds in the morning. SUBJECTIVE: A 62-year-old male with a history of diabetes mellitus type 2; hypertension; chronic back pain, on nonsteroidal anti-inflammatory medications; alcohol dependence; admitted with weakness and fall; noted to be hypoglycemic, corrected with IV dextrose; on admission noted to have significant elevation of BUN and creatinine with hyperkalemia, treated with treated for hyperkalemia and IV hydration, improving BUN and creatinine. Overnight remains alert and awake without headache, shortness of breath, chest pain. Telemetry, sinus rhythm, normotensive, afebrile. This morning, alert and awake, follows commands appropriate. PHYSICAL EXAMINATION: VITAL SIGNS: Temperature 97.8, heart rate 48 to 50 and regular, blood pressure 127/71, respiratory rate of 15, saturation 96%. Intake of 5195, output of 3700, positive balance of 1495. Weight 155 pounds. HEAD, EYES, EARS, NOSE AND THROAT: Pupils are reactive. Conjunctivae pink. Sclerae are white. NECK: Supple. Trachea central. CHEST: Bilateral breath sounds. Clear to auscultation. HEART: Rhythm regular. S1, S2 normal intensity. ABDOMEN: Bowel sounds present. Soft. Liver and spleen not palpable. Bladder not distended. EXTREMITIES: No edema. NEUROLOGIC EXAMINATION: Nonfocal. CURRENT MEDICATIONS: Lipitor 20 mg daily, folic acid 1 mg daily, Ativan 1 mg IV every 4 hours p.r.n. for agitation, multivitamin tablet daily, Zofran 4 mg IV every 4 hours p.r.n., Protonix 40 p.o. daily, sodium chloride at 200 mL/hour and reduced to 100 mL now, thiamine 100 mg p.o. daily. LABORATORY DATA: WBC 2, hemoglobin 9.4, hematocrit 27.9, platelet count of 71. PT 10.9, INR 1, PTT 26.7. ABG: The pH of 7.25, pCO2 of 44. Lactate level of 5.1 and 5.8. SMA-7: Sodium 145, potassium 4.4, chloride 114, CO2 of 19, blood urea nitrogen 70, creatinine 4, glucose 122. Hemoglobin A1c 6.4. Total bilirubin 1.1, AST 26, ALT 45, alkaline phosphatase 60, total protein 6, albumin of 3.4. Urinalysis negative. Toxicology screen, alcohol level 143. MICROBIOLOGY: Urine culture, no growth. Blood culture, no growth. Renal ultrasound: No stone or solid mass lesion. Kidneys normal in size, contour, echogenicity. IMPRESSION: 1. Neuro: Alert, awake, oriented to name, place and time. 2. Pulmonary: No acute issues. Chest x-ray, no active infiltrate. 3. Cardiology: Sinus bradycardia. Normotensive. 4. Hematology: Leukopenia, thrombocytopenia, and high MCV, anemia probably related to alcohol dependence with bone marrow suppression. Closely monitor for any active bleeding. Continue gastrointestinal prophylaxis with Protonix 40 mg p.o. daily. 5. Renal: Acute on chronic renal failure, related to dehydration, history of nonsteroidal anti-inflammatory medications and acute tubular necrosis, related to hypoglycemia. Continue to monitor resolution of acute renal failure. Continue IV hydration at 100 mL per hour. Appreciate nephrology evaluation and followup. 6. Infectious Disease: No evidence of acute infection. 7. Gastrointestinal: Normal liver enzymes. History of alcohol dependence. Continue gastrointestinal prophylaxis, thiamine, and folic acid. Normal B12. The patient has been counseled about abstinence from alcohol and to avoid nonsteroidal anti-inflammatory medications for chronic pain syndrome. Zhou Valerio MD
[2018-03-04 21:28] LABS: FOLATE > 20.0 ng/mL
--- NOTE | 2018-03-04 23:51 | CP.PCM.PN ---
Subjective - Date & Time of Evaluation Date of Evaluation: 03/04/18 Time of Evaluation: 16:00 - Subjective Subjective: SEEN ON RENAL F/U IN ICU FEELS IMPROVED ALL EMR REVIEWED RENAL FUNCTION IMPROVING ELECTROLYTES BETTER FULLY A @ O Objective - Vital Signs/Intake and Output Vital Signs (last 24 hours): Temp Pulse Resp BP Pulse Ox 98.5 F 52 L 14 141/86 99 03/04/18 20:00 03/04/18 22:00 03/04/18 22:00 03/04/18 22:00 03/04/18 22:00 Intake and Output: 03/04/18 03/05/18 18:59 06:59 Intake Total 2500 400 Output Total 1600 Balance 900 400 - Medications Medications: Current Medications Acetaminophen (Tylenol 325mg Tab) 650 mg PO Q4 PRN PRN Reason: Headache Atorvastatin Calcium (Lipitor) 20 mg PO DAILY [facility] Last Admin: 03/04/18 09:52 Dose: 20 mg Folic Acid (Folic Acid) 1 mg PO DAILY [facility] Last Admin: 03/04/18 09:52 Dose: 1 mg Sodium Chloride (Sodium Chloride 0.9%) 1,000 mls @ 100 mls/hr IV .Q10H [facility] Stop: 03/05/18 17:45 Last Admin: 03/04/18 22:37 Dose: 100 mls/hr Insulin Human Regular (Humulin R) 0 units SC ACHS [facility] PRN Reason: Protocol Last Admin: 03/04/18 22:35 Dose: Not Given Lorazepam (Ativan) 1 mg IVP Q4 PRN PRN Reason: Agitation Last Admin: 03/03/18 02:36 Dose: 1 mg Multivitamins/Minerals (Therapeutic-M Tab) 1 tab PO DAILY [facility] Last Admin: 03/04/18 09:52 Dose: 1 tab Ondansetron HCl (Zofran Inj) 4 mg IVP Q4 PRN PRN Reason: Nausea/Vomiting Pantoprazole Sodium (Protonix Ec Tab) 40 mg PO DAILY [facility] Last Admin: 03/04/18 09:52 Dose: 40 mg Thiamine HCl (Vitamin B1 Tab) 100 mg PO DAILY [facility] Last Admin: 03/04/18 09:52 Dose: 100 mg - Labs Labs: 03/04/18 05:12 03/04/18 05:12 PT 10.9 Seconds (9.8-13.1) D 03/03/18 04:31 INR 1.0 (0.9-1.2) D 18 04:31 APTT 26.7 Seconds (25.6-37.1) D 03/03/18 04:31 Assessment and Plan - Assessment and Plan (Free Text) Assessment: A ON CKD .. RENAL FUNCTION MUCH BETTER URINE OUTPUT GOOD MMP P D/W ICU NURSES CHANGE IVF TO 1/2 NS AT 100 CC/H REPEAT BMP AND CBC IN AM NO NEED FOR HEMODIALYSIS
[2018-03-05 05:41] LABS: HEMOGLOBIN 8.7 g/dL (12.0-18.0); MEAN CELL VOLUME 97.3 fl (80.0-94.0); MEAN CORPUSCULAR HEMOGLOBIN 32.9 pg (27.0-31.0); MEAN CORPUSCULAR HGB CONC 33.8 g/dL (33.0-37.0); RBC 2.65 Mil/uL (4.40-5.90); RED CELL DISTRIBUTION WIDTH 13.4 % (11.5-14.5); WHITE BLOOD COUNT 2.2 K/uL (4.8-10.8)
[2018-03-05 05:51] LABS: ABG ALLEN TEST YES; ARTERIAL BLOOD GAS HCO3 20.7 mmol/L (21-28); ARTERIAL BLOOD GAS O2 CAPACITY 12.5 mL/dL (16-24); ARTERIAL BLOOD GAS O2 CONTENT 12.4 ML/dL (15-23); ARTERIAL BLOOD GAS O2 SAT 99.3 % (95-98); ARTERIAL BLOOD GAS PCO2 29 mm/Hg (35-45); ARTERIAL BLOOD GAS PH 7.41 (7.35-7.45); ARTERIAL BLOOD GAS PO2 83 mm/Hg (80-100); ARTERIAL BLOOD GAS TCO2 19.3 mmol/L (22-28)
[2018-03-05] MEDS: Insulin Regular 100 units/ml SC SCH ×4 (07:08→22:32)
[2018-03-05] MEDS: Pantoprazole 40 mg EC Tab PO SCH (08:04)
[2018-03-05] MEDS: Multivitamin With Minerals Tab PO SCH (08:04)
--- NOTE | 2018-03-05 08:22 | CP.CCUPN ---
<Gigi Harris - Last Filed: 03/05/18 10:05> CCU Subjective - Physician Review Events Since Last Encounter (Free Text): 03/05/18 10:05 Pt seen and examined at bedside. Denies significant overnight events. Reports experiencing urinary and bowel movements. Reports improved strength. Denies weakness. Vitals have improved. He has remained afebrile. CCU Objective - Vital Signs / Intake & Output Vital Signs (Last 4 hours): Vital Signs Temp Pulse Resp BP Pulse Ox 03/05/18 08:00 98.6 F 89 16 132/71 97 03/05/18 06:00 42 L 14 152/73 H 98 Intake and Output (Last 8hrs): Intake & Output 03/04/18 03/05/18 03/05/18 22:59 06:59 14:59 Intake Total 1200 800 Output Total 550 500 Balance 650 300 Intake: IV 1200 800 Output: Urine 550 500 Urine, Voided 550 500 Other: # Voids Urine, Voided 1 2 # Bowel Movements 1 - Physical Exam Physical Exam Limitations: Negative for: Altered Mental Status Head: Positive for: Atraumatic Extroacular Muscles: Positive for: EOMI Mouth: Positive for: Moist Mucous Membranes Respiratory/Chest: Positive for: Clear to Auscultation, Good Air Exchange. Negative for: Respiratory Distress, Accessory Muscle Use, Wheezes Cardiovascular: Positive for: Regular Rate and Rhythm, Normal S1, S2 Abdomen: Positive for: Normal Bowel Sounds. Negative for: Tenderness, Distention Neurological: Positive for: CN II-XII Intact, Speech Normal, Other (No resting tremor.) Skin: Positive for: Warm, Dry Psychiatric: Positive for: Alert, Oriented x 3, Normal Insight, Normal Concentration - Medications Active Medications: Active Medications Generic Name Dose Route Start Last Admin Trade Name Freq PRN Reason Stop Dose Admin Acetaminophen 650 mg 03/04/18 22:02 Tylenol 325mg Tab PO Q4 PRN Headache Atorvastatin Calcium 20 mg 03/03/18 09:00 03/05/18 08:04 Lipitor PO 20 mg DAILY NICHOLE Administration Folic Acid 1 mg 03/03/18 09:00 03/05/18 08:03 Folic Acid PO 1 mg DAILY N[facility]LE Administration Sodium Chloride 1,000 mls @ 100 mls/hr 03/04/18 17:45 03/04/18 22:37 Sodium Chloride 0.9% IV 03/05/18 17:45 100 mls/hr .Q10H NIC[facility]LE Administration Insulin Human Regular 0 units 03/03/18 07:30 03/05/18 07:08 Humulin R SC Not Given ACHS [facility] Protocol Lorazepam 1 mg 03/02/18 23:16 03/03/18 02:36 Ativan IVP 1 mg Q4 PRN Administration Agitation Multivitamins/Minerals 1 tab 03/03/18 09:00 03/05/18 08:04 Therapeutic-M Tab PO 1 tab DAILY N[facility] Administration Ondansetron HCl 4 mg 03/02/18 23:18 Zofran Inj IVP Q4 PRN Nausea/Vomiting Pantoprazole Sodium 40 mg 03/03/18 09:00 03/05/18 08:04 Protonix Ec Tab PO 40 mg DAILY [facility] Administration Thiamine HCl 100 mg 03/03/18 09:00 03/05/18 08:04 Vitamin B1 Tab PO 100 mg DAILY N[facility] Administration - Patient Studies Lab Studies: Microbiology Studies 03/02/18 16:27 Blood Culture - Preliminary Blood-Venous NO GROWTH AFTER 48 HOURS 03/02/18 16:27 Blood Culture - Preliminary Blood-Venous NO GROWTH AFTER 48 HOURS 03/02/18 10:00 MRSA Culture (Admit) - Final Naris MRSA NOT DETECTED 03/02/18 20:56 Urine Culture - Final Urine No Growth (<1,000 CFU/ML) Lab Studies 03/05/18 03/05/18 03/05/18 Range/Units 05:31 05:30 04:40 WBC (4.8-10.8) K/uL RBC (4.40-5.90) Mil/uL Hgb (12.0-18.0) g/dL Hct (35.0-51.0) % MCV (80.0-94.0) fl MCH (27.0-31.0) pg MCHC (33.0-37.0) g/dL RDW (11.5-14.5) % Plt Count (130-400) K/uL pCO2 29 L (35-45) mm/Hg pO2 83 (80-100) mm/Hg HCO3 20.7 L (21-28) mmol/L ABG pH 7.41 (7.35-7.45) ABG Total CO2 19.3 L (22-28) mmol/L ABG O2 Saturation 99.3 H (95-98) % ABG O2 Content 12.4 L (15-23) ML/dL ABG Base Excess -5.4 L (-2.0-3.0) mmol/L ABG Hemoglobin 9.0 L (11.7-17.4) g/dL ABG Carboxyhemoglobin 1.3 (0.5-1.5) % POC ABG HHb (Measured) 0.7 (0.0-5.0) % ABG Methemoglobin 1.0 (0.0-3.0) % ABG O2 Capacity 12.5 L (16-24) mL/dL Lew Test Yes A-a O2 Difference 30.0 mm/Hg Hgb O2 Saturation 97.0 (95.0-98.0) % FiO2 21.0 % Sodium 146 (132-148) mmol/l Potassium 4.6 (3.6-5.0) MMOL/L Chloride 117 H (98-107) mmol/L Carbon Dioxide 20 L (22-30) mmol/L Anion Gap 14 (10-20) BUN 47 H (9-20) mg/dl Creatinine 1.9 H (0.8-1.5) mg/dl Est GFR ( Amer) 44 Est GFR (Non-Af Amer) 36 POC Glucose (mg/dL) 138 H (65-110) mg/dL Random Glucose 119 H (75-110) mg/dL Hemoglobin A1c (4.2-6.5) % Calcium 8.0 L (8.4-10.2) mg/dL Folate ng/mL 03/05/18 03/04/18 03/04/18 Range/Units 04:40 21:08 16:31 WBC 2.2 L (4.8-10.8) K/uL RBC 2.65 L (4.40-5.90) Mil/uL Hgb 8.7 L (12.0-18.0) g/dL Hct 25.8 L (35.0-51.0) % MCV 97.3 H (80.0-94.0) fl MCH 32.9 H (27.0-31.0) pg MCHC 33.8 (33.0-37.0) g/dL RDW 13.4 (11.5-14.5) % Plt Count 70 L (130-400) K/uL pCO2 (35-45) mm/Hg pO2 (80-100) mm/Hg HCO3 (21-28) mmol/L ABG pH (7.35-7.45) ABG Total CO2 (22-28) mmol/L ABG O2 Saturation (95-98) % ABG O2 Content (15-23) ML/dL ABG Base Excess (-2.0-3.0) mmol/L ABG Hemoglobin (11.7-17.4) g/dL ABG Carboxyhemoglobin (0.5-1.5) % POC ABG HHb (Measured) (0.0-5.0) % ABG Methemoglobin (0.0-3.0) % ABG O2 Capacity (16-24) mL/dL Lew Test A-a O2 Difference mm/Hg Hgb O2 Saturation (95.0-98.0) % FiO2 % Sodium (132-148) mmol/l Potassium (3.6-5.0) MMOL/L Chloride (98-107) mmol/L Carbon Dioxide (22-30) mmol/L Anion Gap (10-20) BUN (9-20) mg/dl Creatinine (0.8-1.5) mg/dl Est GFR ( Amer) Est GFR (Non-Af Amer) POC Glucose (mg/dL) 132 H 97 (65-110) mg/dL Random Glucose (75-110) mg/dL Hemoglobin A1c (4.2-6.5) % Calcium (8.4-10.2) mg/dL Folate ng/mL 03/04/18 03/03/18 03/03/18 Range/Units 11:09 04:31 04:31 WBC (4.8-10.8) K/uL RBC (4.40-5.90) Mil/uL Hgb (12.0-18.0) g/dL Hct (35.0-51.0) % MCV (80.0-94.0) fl MCH (27.0-31.0) pg MCHC (33.0-37.0) g/dL RDW (11.5-14.5) % Plt Count (130-400) K/uL pCO2 (35-45) mm/Hg pO2 (80-100) mm/Hg HCO3 (21-28) mmol/L ABG pH (7.35-7.45) ABG Total CO2 (22-28) mmol/L ABG O2 Saturation (95-98) % ABG O2 Content (15-23) ML/dL ABG Base Excess (-2.0-3.0) mmol/L ABG Hemoglobin (11.7-17.4) g/dL ABG Carboxyhemoglobin (0.5-1.5) % POC ABG HHb (Measured) (0.0-5.0) % ABG Methemoglobin (0.0-3.0) % ABG O2 Capacity (16-24) mL/dL Lew Test A-a O2 Difference mm/Hg Hgb O2 Saturation (95.0-98.0) % FiO2 % Sodium (132-148) mmol/l Potassium (3.6-5.0) MMOL/L Chloride (98-107) mmol/L Carbon Dioxide (22-30) mmol/L Anion Gap (10-20) BUN (9-20) mg/dl Creatinine (0.8-1.5) mg/dl Est GFR ( Amer) Est GFR (Non-Af Amer) POC Glucose (mg/dL) 243 H (65-110) mg/dL Random Glucose (75-110) mg/dL Hemoglobin A1c 6.4 (4.2-6.5) % Calcium (8.4-10.2) mg/dL Folate > 20.0 ng/mL Laboratory Results - last 24 hr 03/03/18 03/03/18 03/04/18 04:31 04:31 11:09 WBC RBC Hgb Hct MCV MCH MCHC RDW Plt Count pCO2 pO2 HCO3 ABG pH ABG Total CO2 ABG O2 Saturation ABG O2 Content ABG Base Excess ABG Hemoglobin ABG Carboxyhemoglobin POC ABG HHb (Measured) ABG Methemoglobin ABG O2 Capacity Lew Test A-a O2 Difference Hgb O2 Saturation FiO2 Sodium Potassium Chloride Carbon Dioxide Anion Gap BUN Creatinine Est GFR ( Amer) Est GFR (Non-Af Amer) POC Glucose (mg/dL) 243 H Random Glucose Hemoglobin A1c 6.4 Calcium Folate > 20.0 03/04/18 03/04/18 03/05/18 16:31 21:08 04:40 WBC 2.2 L RBC 2.65 L Hgb 8.7 L Hct 25.8 L MCV 97.3 H MCH 32.9 H MCHC 33.8 RDW 13.4 Plt Count 70 L pCO2 pO2 HCO3 ABG pH ABG Total CO2 ABG O2 Saturation ABG O2 Content ABG Base Excess ABG Hemoglobin ABG Carboxyhemoglobin POC ABG HHb (Measured) ABG Methemoglobin ABG O2 Capacity Lew Test A-a O2 Difference Hgb O2 Saturation FiO2 Sodium Potassium Chloride Carbon Dioxide Anion Gap BUN Creatinine Est GFR ( Amer) Est GFR (Non-Af Amer) POC Glucose (mg/dL) 97 132 H Random Glucose Hemoglobin A1c Calcium Folate 03/05/18 03/05/18 03/05/18 04:40 05:30 05:31 WBC RBC Hgb Hct MCV MCH MCHC RDW Plt Count pCO2 29 L pO2 83 HCO3 20.7 L ABG pH 7.41 ABG Total CO2 19.3 L ABG O2 Saturation 99.3 H ABG O2 Content 12.4 L ABG Base Excess -5.4 L ABG Hemoglobin 9.0 L ABG Carboxyhemoglobin 1.3 POC ABG HHb (Measured) 0.7 ABG Methemoglobin 1.0 ABG O2 Capacity 12.5 L Lew Test Yes A-a O2 Difference 30.0 Hgb O2 Saturation 97.0 FiO2 21.0 Sodium 146 Potassium 4.6 Chloride 117 H Carbon Dioxide 20 L Anion Gap 14 BUN 47 H Creatinine 1.9 H Est GFR ( Amer) 44 Est GFR (Non-Af Amer) 36 POC Glucose (mg/dL) 138 H Random Glucose 119 H Hemoglobin A1c Calcium 8.0 L Folate Fingerstick Blood Sugar Results: 138 Review of Systems - Constitutional Constitutional: absent: Fever - Cardiovascular Cardiovascular: absent: Chest Pain, Chest Pain at Rest - Respiratory Respiratory: absent: Cough, Dyspnea, Hemoptysis - Gastrointestinal Gastrointestinal: absent: Abdominal Pain - Musculoskeletal Musculoskeletal: absent: Abnormal Gait - Neurological Neurological: As Per HPI - Psychiatric Psychiatric: As Per HPI Critical Care Progress Note - Nutrition Nutrition: Nutrition Category Date Time Status Heart Healthy Diet [DIET] Diets 03/02/18 Dinner Active Assessment/Plan - Assessment and Plan (Free Text) Assessment: 62 yo M with pmhx of DM2, HTN, alcohol dependence presented with weakness with hypoglycemia. Plan: Pancytopenia -Improving -f/u CBC -monitor for bleeding Acute on chronic renal failure related to dehydration -hx NSAID use for chronic pain -hx of ATN -possible 2/2 dehydration -IVF: NS -Pt is voiding -Renal US: unremarkable -Dr. Woodward on board: recommend IVF; no HD -F/U CMP etoh dependence -thiamine and folic acid -monitor for withdrawals, delerium tremens -Lorazepam PRN -monitor vitals DM2 -accuchecks -SSI Case dw Dr. Daphne Harris MD PGY2 <Julius Serna M - Last Filed: 03/05/18 14:24> CCU Objective - Vital Signs / Intake & Output Vital Signs (Last 4 hours): Vital Signs Temp Pulse Resp BP Pulse Ox 03/05/18 12:00 98.6 F 50 L 19 139/88 100 Intake and Output (Last 8hrs): Intake & Output 03/04/18 03/05/18 03/05/18 22:59 06:59 14:59 Intake Total 1200 800 900 Output Total 550 500 Balance 650 300 900 Intake: IV 1200 800 500 Oral 400 Output: Urine 550 500 Urine, Voided 550 500 Other: # Voids Urine, Voided 1 2 1 # Bowel Movements 1 - Medications Active Medications: Active Medications Generic Name Dose Route Start Last Admin Trade Name Freq PRN Reason Stop Dose Admin Acetaminophen 650 mg 03/04/18 22:02 Tylenol 325mg Tab PO Q4 PRN Headache Atorvastatin Calcium 20 mg 03/03/18 09:00 03/05/18 08:04 Lipitor PO 20 mg DAILY NICHOLE Administration Folic Acid 1 mg 03/03/18 09:00 03/05/18 08:03 Folic Acid PO 1 mg DAILY [facility] Administration Sodium Chloride 1,000 mls @ 100 mls/hr 03/04/18 17:45 03/04/18 22:37 Sodium Chloride 0.9% IV 03/05/18 17:45 100 mls/hr .Q10H [facility] Administration Insulin Human Regular 0 units 03/03/18 07:30 03/05/18 12:36 Humulin R SC 1 unit ACHS [facility] Administration Protocol Lorazepam 1 mg 03/02/18 23:16 03/03/18 02:36 Ativan IVP 1 mg Q4 PRN Administration Agitation Multivitamins/Minerals 1 tab 03/03/18 09:00 03/05/18 08:04 Therapeutic-M Tab PO 1 tab DAILY [facility] Administration Ondansetron HCl 4 mg 03/02/18 23:18 Zofran Inj IVP Q4 PRN Nausea/Vomiting Pantoprazole Sodium 40 mg 03/03/18 09:00 03/05/18 08:04 Protonix Ec Tab PO 40 mg DAILY [facility] Administration Thiamine HCl 100 mg 03/03/18 09:00 03/05/18 08:04 Vitamin B1 Tab PO 100 mg DAILY N[facility]HOLE Administration - Patient Studies Lab Studies: Microbiology Studies 03/02/18 16:27 Blood Culture - Preliminary Blood-Venous NO GROWTH AFTER 48 HOURS 03/02/18 16:27 Blood Culture - Preliminary Blood-Venous NO GROWTH AFTER 48 HOURS 03/02/18 10:00 MRSA Culture (Admit) - Final [facility] MRSA NOT DETECTED Lab Studies 03/05/18 03/05/18 03/05/18 Range/Units 05:31 05:30 04:40 WBC (4.8-10.8) K/uL RBC (4.40-5.90) Mil/uL Hgb (12.0-18.0) g/dL Hct (35.0-51.0) % MCV (80.0-94.0) fl MCH (27.0-31.0) pg MCHC (33.0-37.0) g/dL RDW (11.5-14.5) % Plt Count (130-400) K/uL pCO2 29 L (35-45) mm/Hg pO2 83 (80-100) mm/Hg HCO3 20.7 L (21-28) mmol/L ABG pH 7.41 (7.35-7.45) ABG Total CO2 19.3 L (22-28) mmol/L ABG O2 Saturation 99.3 H (95-98) % ABG O2 Content 12.4 L (15-23) ML/dL ABG Base Excess -5.4 L (-2.0-3.0) mmol/L ABG Hemoglobin 9.0 L (11.7-17.4) g/dL ABG Carboxyhemoglobin 1.3 (0.5-1.5) % POC ABG HHb (Measured) 0.7 (0.0-5.0) % ABG Methemoglobin 1.0 (0.0-3.0) % ABG O2 Capacity 12.5 L (16-24) mL/dL Lew Test Yes A-a O2 Difference 30.0 mm/Hg Hgb O2 Saturation 97.0 (95.0-98.0) % FiO2 21.0 % Sodium 146 (132-148) mmol/l Potassium 4.6 (3.6-5.0) MMOL/L Chloride 117 H (98-107) mmol/L Carbon Dioxide 20 L (22-30) mmol/L Anion Gap 14 (10-20) BUN 47 H (9-20) mg/dl Creatinine 1.9 H (0.8-1.5) mg/dl Est GFR ( Amer) 44 Est GFR (Non-Af Amer) 36 POC Glucose (mg/dL) 138 H (65-110) mg/dL Random Glucose 119 H (75-110) mg/dL Calcium 8.0 L (8.4-10.2) mg/dL Folate ng/mL 03/05/18 03/04/18 03/04/18 Range/Units 04:40 21:08 16:31 WBC 2.2 L (4.8-10.8) K/uL RBC 2.65 L (4.40-5.90) Mil/uL Hgb 8.7 L (12.0-18.0) g/dL Hct 25.8 L (35.0-51.0) % MCV 97.3 H (80.0-94.0) fl MCH 32.9 H (27.0-31.0) pg MCHC 33.8 (33.0-37.0) g/dL RDW 13.4 (11.5-14.5) % Plt Count 70 L (130-400) K/uL pCO2 (35-45) mm/Hg pO2 (80-100) mm/Hg HCO3 (21-28) mmol/L ABG pH (7.35-7.45) ABG Total CO2 (22-28) mmol/L ABG O2 Saturation (95-98) % ABG O2 Content (15-23) ML/dL ABG Base Excess (-2.0-3.0) mmol/L ABG Hemoglobin (11.7-17.4) g/dL ABG Carboxyhemoglobin (0.5-1.5) % POC ABG HHb (Measured) (0.0-5.0) % ABG Methemoglobin (0.0-3.0) % ABG O2 Capacity (16-24) mL/dL Lew Test A-a O2 Difference mm/Hg Hgb O2 Saturation (95.0-98.0) % FiO2 % Sodium (132-148) mmol/l Potassium (3.6-5.0) MMOL/L Chloride (98-107) mmol/L Carbon Dioxide (22-30) mmol/L Anion Gap (10-20) BUN (9-20) mg/dl Creatinine (0.8-1.5) mg/dl Est GFR ( Amer) Est GFR (Non-Af Amer) POC Glucose (mg/dL) 132 H 97 (65-110) mg/dL Random Glucose (75-110) mg/dL Calcium (8.4-10.2) mg/dL Folate ng/mL 03/03/18 Range/Units 04:31 WBC (4.8-10.8) K/uL RBC (4.40-5.90) Mil/uL Hgb (12.0-18.0) g/dL Hct (35.0-51.0) % MCV (80.0-94.0) fl MCH (27.0-31.0) pg MCHC (33.0-37.0) g/dL RDW (11.5-14.5) % Plt Count (130-400) K/uL pCO2 (35-45) mm/Hg pO2 (80-100) mm/Hg HCO3 (21-28) mmol/L ABG pH (7.35-7.45) ABG Total CO2 (22-28) mmol/L ABG O2 Saturation (95-98) % ABG O2 Content (15-23) ML/dL ABG Base Excess (-2.0-3.0) mmol/L ABG Hemoglobin (11.7-17.4) g/dL ABG Carboxyhemoglobin (0.5-1.5) % POC ABG HHb (Measured) (0.0-5.0) % ABG Methemoglobin (0.0-3.0) % ABG O2 Capacity (16-24) mL/dL Lew Test A-a O2 Difference mm/Hg Hgb O2 Saturation (95.0-98.0) % FiO2 % Sodium (132-148) mmol/l Potassium (3.6-5.0) MMOL/L Chloride (98-107) mmol/L Carbon Dioxide (22-30) mmol/L Anion Gap (10-20) BUN (9-20) mg/dl Creatinine (0.8-1.5) mg/dl Est GFR ( Amer) Est GFR (Non-Af Amer) POC Glucose (mg/dL) (65-110) mg/dL Random Glucose (75-110) mg/dL Calcium (8.4-10.2) mg/dL Folate > 20.0 ng/mL Laboratory Results - last 24 hr 03/03/18 03/04/18 03/04/18 04:31 16:31 21:08 WBC RBC Hgb Hct MCV MCH MCHC RDW Plt Count pCO2 pO2 HCO3 ABG pH ABG Total CO2 ABG O2 Saturation ABG O2 Content ABG Base Excess ABG Hemoglobin ABG Carboxyhemoglobin POC ABG HHb (Measured) ABG Methemoglobin ABG O2 Capacity Lew Test A-a O2 Difference Hgb O2 Saturation FiO2 Sodium Potassium Chloride Carbon Dioxide Anion Gap BUN Creatinine Est GFR ( Amer) Est GFR (Non-Af Amer) POC Glucose (mg/dL) 97 132 H Random Glucose Calcium Folate > 20.0 03/05/18 03/05/18 03/05/18 04:40 04:40 05:30 WBC 2.2 L RBC 2.65 L Hgb 8.7 L Hct 25.8 L MCV 97.3 H MCH 32.9 H MCHC 33.8 RDW 13.4 Plt Count 70 L pCO2 29 L pO2 83 HCO3 20.7 L ABG pH 7.41 ABG Total CO2 19.3 L ABG O2 Saturation 99.3 H ABG O2 Content 12.4 L ABG Base Excess -5.4 L ABG Hemoglobin 9.0 L ABG Carboxyhemoglobin 1.3 POC ABG HHb (Measured) 0.7 ABG Methemoglobin 1.0 ABG O2 Capacity 12.5 L Lew Test Yes A-a O2 Difference 30.0 Hgb O2 Saturation 97.0 FiO2 21.0 Sodium 146 Potassium 4.6 Chloride 117 H Carbon Dioxide 20 L Anion Gap 14 BUN 47 H Creatinine 1.9 H Est GFR ( Amer) 44 Est GFR (Non-Af Amer) 36 POC Glucose (mg/dL) Random Glucose 119 H Calcium 8.0 L Folate 03/05/18 05:31 WBC RBC Hgb Hct MCV MCH MCHC RDW Plt Count pCO2 pO2 HCO3 ABG pH ABG Total CO2 ABG O2 Saturation ABG O2 Content ABG Base Excess ABG Hemoglobin ABG Carboxyhemoglobin POC ABG HHb (Measured) ABG Methemoglobin ABG O2 Capacity Lew Test A-a O2 Difference Hgb O2 Saturation FiO2 Sodium Potassium Chloride Carbon Dioxide Anion Gap BUN Creatinine Est GFR ( Amer) Est GFR (Non-Af Amer) POC Glucose (mg/dL) 138 H Random Glucose Calcium Folate Critical Care Progress Note - Nutrition Nutrition: Nutrition Category Date Time Status Heart Healthy Diet [DIET] Diets 03/02/18 Dinner Active Attending/Attestation - Attestation I have personally seen and examined this patient.: Yes I have fully participated in the care of the patient.: Yes I have reviewed all pertinent clinical information: Yes Notes (Text): Today: Monday, March 05, 2018 The patient was Seen/interviewed and examined by me at the bedside, Medical records reviewed and Management issues were discussed and formulated with the house staff. Events reviewed I have reviewed all the relevant clinical, laboratory, hemodynamic, radiographic data and medications Pain issues, skin care, head of the bed elevation, glycemic control were addressed. I concur with resident's assessment and plan of care as transcribed in Dr. Harris note.
[2018-03-05] MEDS: Sodium Chloride 0.9% 1,000 ML IV SCH (16:12)
--- NOTE | 2018-03-05 19:24 | CP.PCM.PN ---
Subjective - Date & Time of Evaluation Date of Evaluation: 03/05/18 Time of Evaluation: 13:30 - Subjective Subjective: Seen and examined at the bed side. Continue to improve. Less Tremor. Counselled to Quit Etoh use. Objective - Vital Signs/Intake and Output Vital Signs (last 24 hours): Temp Pulse Resp BP Pulse Ox 98.6 F 50 L 19 139/88 100 03/05/18 17:00 03/05/18 17:00 03/05/18 17:00 03/05/18 17:00 03/05/18 17:00 Intake and Output: 03/05/18 03/06/18 18:59 06:59 Intake Total 1600 Balance 1600 - Medications Medications: Current Medications Acetaminophen (Tylenol 325mg Tab) 650 mg PO Q4 PRN PRN Reason: Headache Atorvastatin Calcium (Lipitor) 20 mg PO DAILY [facility] Last Admin: 03/05/18 08:04 Dose: 20 mg Folic Acid (Folic Acid) 1 mg PO DAILY [facility] Last Admin: 03/05/18 08:03 Dose: 1 mg Insulin Human Regular (Humulin R) 0 units SC ACHS [facility] PRN Reason: Protocol Last Admin: 03/05/18 16:13 Dose: 2 unit Lorazepam (Ativan) 1 mg IVP Q4 PRN PRN Reason: Agitation Last Admin: 03/03/18 02:36 Dose: 1 mg Multivitamins/Minerals (Therapeutic-M Tab) 1 tab PO DAILY [facility] Last Admin: 03/05/18 08:04 Dose: 1 tab Ondansetron HCl (Zofran Inj) 4 mg IVP Q4 PRN PRN Reason: Nausea/Vomiting Pantoprazole Sodium (Protonix Ec Tab) 40 mg PO DAILY [facility] Last Admin: 03/05/18 08:04 Dose: 40 mg Thiamine HCl (Vitamin B1 Tab) 100 mg PO DAILY [facility] Last Admin: 03/05/18 08:04 Dose: 100 mg - Labs Labs: 03/05/18 04:40 03/05/18 04:40 PT 10.9 Seconds (9.8-13.1) D 03/03/18 04:31 INR 1.0 (0.9-1.2) D 03/03/18 04:31 APTT 26.7 Seconds (25.6-37.1) D 03/03/18 04:31 - Constitutional Appears: Well, No Acute Distress - Head Exam Head Exam: ATRAUMATIC, NORMAL INSPECTION, NORMOCEPHALIC - Eye Exam Eye Exam: EOMI, Normal appearance, PERRL Pupil Exam: NORMAL ACCOMODATION, PERRL - ENT Exam ENT Exam: Mucous Membranes Moist, Normal Exam - Neck Exam Neck Exam: Full ROM, Normal Inspection. absent: Lymphadenopathy - Respiratory Exam Respiratory Exam: Clear to Ausculation Bilateral, NORMAL BREATHING PATTERN - Cardiovascular Exam Cardiovascular Exam: REGULAR RHYTHM, +S1, +S2. absent: Murmur - GI/Abdominal Exam GI & Abdominal Exam: Soft, Normal Bowel Sounds. absent: Tenderness - Extremities Exam Extremities Exam: Full ROM, Normal Capillary Refill, Normal Inspection. absent : Joint Swelling, Pedal Edema - Back Exam Back Exam: Full ROM, NORMAL INSPECTION - Neurological Exam Neurological Exam: Alert, Awake, CN II-XII Intact, Normal Gait, Oriented x3 - Psychiatric Exam Psychiatric exam: Normal Affect, Normal Mood - Skin Skin Exam: Dry, Intact, Normal Color, Warm Assessment and Plan (1) Acute renal failure (ARF) Assessment & Plan: IVF Urine I/O Status: Resolved (2) Alcohol withdrawal Assessment & Plan: IVF IV Thiamine/Folic Acid Status: Chronic (3) Pancytopenia Status: Acute (4) Hyperkalemia Status: Resolved (5) Hypoglycemia Status: Resolved (6) Chronic pain Status: Chronic
[2018-03-06 01:31] VITALS: PULSE 59
[2018-03-06] MEDS: Insulin Regular 100 units/ml SC SCH ×2 (06:39→12:02)
[2018-03-06 06:52] LABS: HEMOGLOBIN 8.5 g/dL (12.0-18.0); MEAN CELL VOLUME 97.3 fl (80.0-94.0); MEAN CORPUSCULAR HEMOGLOBIN 32.7 pg (27.0-31.0); MEAN CORPUSCULAR HGB CONC 33.6 g/dL (33.0-37.0); RBC 2.59 Mil/uL (4.40-5.90); RED CELL DISTRIBUTION WIDTH 13.4 % (11.5-14.5); WHITE BLOOD COUNT 2.3 K/uL (4.8-10.8)
[2018-03-06 07:54] LABS: ALB/GLOB RATIO 1.1 (1.0-2.1); ALBUMIN 3.1 g/dL (3.5-5.0); ALT/SGPT 59 U/L (21-72); AST/SGOT 55 U/L (17-59); BLOOD UREA NITROGEN 30 mg/dl (9-20); CALCIUM 7.9 mg/dL (8.4-10.2); GFR AFRICAN-AMERICAN > 60; GFR NON-AFRICAN AMERICAN 56
[2018-03-06 08:19] VITALS: BP 154/71; RESP 19; TEMP 98.1; O2SAT 95
[2018-03-06] MEDS: Pantoprazole 40 mg EC Tab PO SCH (08:23)
[2018-03-06] MEDS: Multivitamin With Minerals Tab PO SCH (08:23)
--- NOTE | 2018-03-07 07:44 | CP.PCM.DIS ---
Provider - Provider Date of Admission: 03/02/18 19:30 Attending physician: Julio Caldera MD Time Spent in preparation of Discharge (in minutes): 25 Diagnosis - Discharge Diagnosis (1) Acute renal failure (ARF) Status: Resolved (2) Hypoglycemia Status: Resolved Priority: High (3) Alcohol withdrawal Status: Acute Priority: Medium (4) Pancytopenia Status: Acute Priority: Low (5) Hyperkalemia Status: Resolved Priority: High (6) Chronic pain Status: Chronic Priority: Low Hospital Course - Lab Results Lab Results: Micro Results 03/05/18 19:00 Nose MRSA Culture (Admit) - Final MRSA NOT DETECTED 03/02/18 16:27 Blood-Venous Blood Culture - Preliminary NO GROWTH AFTER 4 DAYS 03/02/18 16:27 Blood-Venous Blood Culture - Preliminary NO GROWTH AFTER 4 DAYS 03/02/18 10:00 Naris MRSA Culture (Admit) - Final MRSA NOT DETECTED 03/02/18 20:56 Urine Urine Culture - Final No Growth (<1,000 CFU/ML) Most Recent Lab Values WBC 2.3 K/uL (4.8-10.8) L 03/06/18 05:55 RBC 2.59 Mil/uL (4.40-5.90) L 03/06/18 05:55 Hgb 8.5 g/dL (12.0-18.0) L 03/06/18 05:55 Hct 25.2 % (35.0-51.0) L 03/06/18 05:55 MCV 97.3 fl (80.0-94.0) H 03/06/18 05:55 MCH 32.7 pg (27.0-31.0) H 03/06/18 05:55 MCHC 33.6 g/dL (33.0-37.0) 03/06/18 05:55 RDW 13.4 % (11.5-14.5) 03/06/18 05:55 Plt Count 72 K/uL (130-400) L 03/06/18 05:55 MPV 9.7 fl (7.2-11.7) 03/02/18 17:13 Neut % (Auto) 79.6 % (50.0-75.0) H 03/02/18 17:13 Lymph % (Auto) 13.3 % (20.0-40.0) L 03/02/18 17:13 [place] % (Auto) 6.9 % (0.0-10.0) 03/02/18 17:13 Eos % (Auto) 0.1 % (0.0-4.0) 03/02/18 17:13 Baso % (Auto) 0.1 % (0.0-2.0) 03/02/18 17:13 Neut # (Auto) 3.5 K/uL (1.8-7.0) 03/02/18 17:13 Lymph # (Auto) 0.6 K/uL (1.0-4.3) L 03/02/18 17:13 [place] # (Auto) 0.3 K/uL (0.0-0.8) 03/02/18 17:13 Eos # (Auto) 0.0 K/uL (0.0-0.7) 03/02/18 17:13 Baso # (Auto) 0.0 K/uL (0.0-0.2) 03/02/18 17:13 Neutrophils % (Manual) Cancelled 03/02/18 16:27 Band Neutrophils % Cancelled 03/02/18 16:27 Lymphocytes % (Manual) Cancelled 03/02/18 16:27 Reactive Lymphs % Cancelled 03/02/18 16:27 Monocytes % (Manual) Cancelled 03/02/18 16:27 Eosinophils % (Manual) Cancelled 03/02/18 16:27 Basophils % (Manual) Cancelled 03/02/18 16:27 Metamyelocytes % Cancelled 03/02/18 16:27 Myelocytes % Cancelled 03/02/18 16:27 Promyelocytes % Cancelled 03/02/18 16:27 Blast Cells % Cancelled 03/02/18 16:27 Plasma Cell % (Manual) Cancelled 03/02/18 16:27 Nucleated RBC % Cancelled 03/02/18 16:27 Hypersegmented Polys Cancelled 03/02/18 16:27 Smudge Cells Cancelled 03/02/18 16:27 Toxic Granulation Cancelled 03/02/18 16:27 Dohle Bodies Cancelled 03/02/18 16:27 Rey Rods Cancelled 03/02/18 16:27 Platelet Estimate Cancelled 03/02/18 16:27 Plt Clumps, EDTA Cancelled 03/02/18 16:27 Large Platelets Cancelled 03/02/18 16:27 Giant Platelets Cancelled 03/02/18 16:27 RBC Morphology Cancelled 03/02/18 16:27 Polychromasia Cancelled 03/02/18 16:27 Hypochromasia (manual) Cancelled 03/02/18 16:27 Poikilocytosis (manual Cancelled 03/02/18 16:27 Basophilic Stippling Cancelled 03/02/18 16:27 Anisocytosis (manual) Cancelled 03/02/18 16:27 Microcytosis (manual) Cancelled 03/02/18 16:27 Macrocytosis (manual) Cancelled 03/02/18 16:27 Spherocytes Cancelled 03/02/18 16:27 Sickle Cells Cancelled 03/02/18 16:27 Target Cells Cancelled 03/02/18 16:27 Tear Drop Cells Cancelled 03/02/18 16:27 Ovalocytes Cancelled 03/02/18 16:27 Stomatocytes Cancelled 03/02/18 16:27 Helmet Cells Cancelled 03/02/18 16:27 [place] Bodies Cancelled 03/02/18 16:27 Gretchen Cells Cancelled 03/02/18 16:27 Acanthocytes (Spur) Cancelled 03/02/18 16:27 Rouleaux Cancelled 03/02/18 16:27 Schistocytes Cancelled 03/02/18 16:27 PT 10.9 Seconds (9.8-13.1) D 03/03/18 04:31 INR 1.0 (0.9-1.2) D 03/03/18 04:31 APTT 26.7 Seconds (25.6-37.1) D 03/03/18 04:31 pCO2 29 mm/Hg (35-45) L 03/05/18 05:30 pO2 83 mm/Hg (80-100) 03/05/18 05:30 HCO3 20.7 mmol/L (21-28) L 03/05/18 05:30 ABG pH 7.41 (7.35-7.45) 03/05/18 05:30 ABG Total CO2 19.3 mmol/L (22-28) L 03/05/18 05:30 ABG O2 Saturation 99.3 % (95-98) H 03/05/18 05:30 ABG O2 Content 12.4 ML/dL (15-23) L 03/05/18 05:30 ABG Base Excess -5.4 mmol/L (-2.0-3.0) L 03/05/18 05:30 ABG Hemoglobin 9.0 g/dL (11.7-17.4) L 03/05/18 05:30 ABG Carboxyhemoglobin 1.3 % (0.5-1.5) 03/05/18 05:30 POC ABG HHb (Measured) 0.7 % (0.0-5.0) 03/05/18 05:30 ABG Methemoglobin 1.0 % (0.0-3.0) 03/05/18 05:30 ABG O2 Capacity 12.5 mL/dL (16-24) L 03/05/18 05:30 Lew Test Yes 03/05/18 05:30 ABG Potassium 5.9 mmol/L (3.6-5.2) H 03/02/18 16:55 VBG pH 7.25 (7.32-7.43) L 03/03/18 04:00 VBG pCO2 44 mmHg (40-60) 03/03/18 04:00 VBG HCO3 17.6 mmol/L 03/03/18 04:00 VBG Total CO2 20.7 mmol/L (22-28) L 03/03/18 04:00 VBG O2 Sat (Calc) 34.7 % (40-65) L 03/03/18 04:00 VBG Base Excess -7.6 mmol/L (0.0-2.0) L 03/03/18 04:00 VBG Potassium 5.1 mmol/L (3.6-5.2) 03/03/18 04:00 A-a O2 Difference 30.0 mm/Hg 03/05/18 05:30 Hgb O2 Saturation 97.0 % (95.0-98.0) 03/05/18 05:30 Sodium 142.0 mmol/L (132-148) 03/03/18 04:00 Chloride 108.0 mmol/L (98-107) H 03/03/18 04:00 Glucose 234 mg/dL (75-110) H 03/03/18 04:00 Lactate 1.9 mmol/L (0.7-2.1) 03/03/18 04:00 FiO2 21.0 % 03/05/18 05:30 Blood Gas Comments Ra21% 03/02/18 16:55 Crit Value Called To Dr. sona rodriguez m.d 03/02/18 16:55 Crit Value Called By Deandra 03/02/18 16:55 Crit Value Read Back Y 03/02/18 16:55 Blood Gas Notified Time 1705 03/02/18 16:55 Sodium 144 mmol/l (132-148) 03/06/18 05:55 Potassium 4.5 MMOL/L (3.6-5.0) 03/06/18 05:55 Chloride 116 mmol/L (98-107) H 03/06/18 05:55 Carbon Dioxide 19 mmol/L (22-30) L 03/06/18 05:55 Anion Gap 14 (10-20) 03/06/18 05:55 BUN 30 mg/dl (9-20) H 03/06/18 05:55 Creatinine 1.3 mg/dl (0.8-1.5) 03/06/18 05:55 Est GFR ( Amer) > 60 03/06/18 05:55 Est GFR (Non-Af Amer) 56 03/06/18 05:55 POC Glucose (mg/dL) 182 mg/dL (65-110) H 03/06/18 11:03 Random Glucose 148 mg/dL (75-110) H 03/06/18 05:55 Hemoglobin A1c 6.4 % (4.2-6.5) 03/03/18 04:31 Calcium 7.9 mg/dL (8.4-10.2) L 03/06/18 05:55 Phosphorus 13.8 mg/dl (2.5-4.5) H 03/02/18 17:13 Magnesium 3.0 MG/DL (1.6-2.3) H 03/02/18 17:13 Total Bilirubin 0.6 mg/dl (0.2-1.3) 03/06/18 05:55 AST 55 U/L (17-59) 03/06/18 05:55 ALT 59 U/L (21-72) 03/06/18 05:55 Alkaline Phosphatase 60 U/L (38-126) 03/06/18 05:55 Ammonia 44 umo/L (16-60) 03/02/18 23:18 Total Creatine Kinase 125 U/L (55-170) 03/02/18 17:13 Troponin I < 0.0120 ng/mL (0.00-0.120) 03/02/18 17:13 NT-Pro-B Natriuret Pep 245 pg/ml (0-900) 03/02/18 17:13 Total Protein 5.9 G/DL (6.3-8.2) L 03/06/18 05:55 Albumin 3.1 g/dL (3.5-5.0) L 03/06/18 05:55 Globulin 2.8 gm/dL (2.2-3.9) 03/06/18 05:55 Albumin/Globulin Ratio 1.1 (1.0-2.1) 03/06/18 05:55 Vitamin B12 699 pg/mL (239-931) 03/03/18 04:31 Folate > 20.0 ng/mL 03/03/18 04:31 Arterial Blood Potassium 5.9 mmol/L (3.6-5.2) H 03/02/18 16:55 Venous Blood Potassium 5.1 mmol/L (3.6-5.2) 03/03/18 04:00 Urine Color Yellow (YELLOW) 03/02/18 20:56 Urine Clarity Clear (Clear) 03/02/18 20:56 Urine pH 6.0 (5.0-8.0) 03/02/18 20:56 Ur Specific Erick 1.006 (1.003-1.030) 03/02/18 20:56 Urine Protein 30 mg/dL (NEGATIVE) 03/02/18 20:56 Urine Glucose (UA) >=500 mg/dL (Normal) 03/02/18 20:56 Urine Ketones Negative mg/dL (NEGATIVE) 03/02/18 20:56 Urine Blood Small (NEGATIVE) 03/02/18 20:56 Urine Nitrate Negative (NEGATIVE) 03/02/18 20:56 Urine Bilirubin Negative (NEGATIVE) 03/02/18 20:56 Urine Urobilinogen 0.2-1.0 mg/dL (0.2-1.0) 03/02/18 20:56 Ur Leukocyte Esterase Neg [place]/uL (Negative) 03/02/18 20:56 Urine RBC (Auto) 1 /hpf (0-3) 03/02/18 20:56 Urine Microscopic WBC 1 /hpf (0-5) 03/02/18 20:56 Ur Squamous Epith Cells < 1 /hpf (0-5) 03/02/18 20:56 Hyaline Casts 3-5 /hpf (0-2) H 03/02/18 20:56 Ur Random Sodium 98 meq/L 03/02/18 20:56 Ur Random Potassium 12.7 mmol/L 03/02/18 20:56 Alcohol, Quantitative 143 mg/dl (0-10) H 03/02/18 17:13 Blood Type A POSITIVE 03/02/18 16:27 Blood Type Confirm A POSITIVE 03/02/18 17:55 Antibody Screen Negative 03/02/18 16:27 BBK History Checked No verified bt 03/02/18 16:27 Discharge Exam - Head Exam Head Exam: ATRAUMATIC, NORMAL INSPECTION, NORMOCEPHALIC Discharge Plan - Discharge Medications Prescriptions: Thiamine [Vitamin B1 Tab] 100 mg PO DAILY #30 tab - Follow Up Plan Condition: CRITICAL Disposition: HOME/ ROUTINE Instructions: Generalized Weakness (DC), Alcohol Abuse and Alcoholism (DC) Additional Instructions: follow up with primary MD 1 week Referrals: Erickson Woodward MD [Staff Provider] - Summer Bills MD [Family Provider] -
== END 2018-03-06 13:17 | disposition home or self-care (01) | DRG 683 ==
LOC: H.ER 15:34 → H.ERHOLD 19:30 → H.ICU/CCU 03-03 00:49 → H.MEDSURG1 03-05 15:05
PROVIDERS: ADMIT Internal Medicine; ATTEND Internal Medicine
DX: N17.0 Acute kidney failure with tubular necrosis (principal); E87.2 Acidosis; D68.4 Acquired coagulation factor deficiency; D61.818 Other pancytopenia; F10.239 Alcohol dependence with withdrawal, unspecified; E87.5 Hyperkalemia; E11.649 Type 2 diabetes mellitus with hypoglycemia without coma; I12.9 Hypertensive chronic kidney disease with stage 1 through stage 4 chronic kidney disease, or unspecified chronic kidney disease; N18.9 Chronic kidney disease, unspecified; E11.22 Type 2 diabetes mellitus with diabetic chronic kidney disease; E86.0 Dehydration; F10.229 Alcohol dependence with intoxication, unspecified; Y90.6 Blood alcohol level of 120-199 mg/100 ml; G89.29 Other chronic pain; E78.00 Pure hypercholesterolemia, unspecified; J45.909 Unspecified asthma, uncomplicated; M54.12 Radiculopathy, cervical region; Z79.84 Long term (current) use of oral hypoglycemic drugs; Z87.891 Personal history of nicotine dependence; Z87.01 Personal history of pneumonia (recurrent)